=== PATIENT | male | born 1970 | race African-American/Black ===

== ENCOUNTER 2017-03-06 15:39 | Inpatient (IN) | payer OTHER ==
[2017-03-06 17:39] VITALS: BMI 27.3
--- NOTE | 2017-03-06 20:09 | HP ---
CIWA Score - CIWA Score Nausea/Vomitin-Mild Nausea/No Vomiting Muscle Tremors: 4-Moderate,w/Arms Extend Anxiety: 4-Mod. Anxious/Guarded Agitation: 4-Moderately Restless Paroxysmal Sweats: 2 Orientation: 0-Oriented Tacttile Disturbances: 0-None Auditory Disturbances: 0-None Visual Disturbances: 0-None Headache: 0-None Present CIWA-Ar Total Score: 15 Admission ROS BHS - HPI Chief Complaint: WITHDRAWAL SYMPTOMS Allergies/Adverse Reactions: Allergies Allergy/AdvReac Type Severity Reaction Status Date / Time colchicine Allergy Intermediate Rash Verified 03/06/17 18:30 Fish Containing Products Allergy Intermediate Hives Verified 03/06/17 18:30 History of Present Illness: 46 Y.O. MAN WITH AN EXTENSIVE HISTORY OF DRUG DEPENDENCE IS SEEKING DETOX. HE WAS PREVIOUSLY HERE IN 12/2014 FOR REHAB. HE REPORTS HIS LONGEST PERIOD OF SOBRIETY HAS BEEN 3 YEARS. Exam Limitations: No Limitations - Ebola screening Have you traveled outside of the country in the last 21 days: No Have you been sick,other than usual withdrawal symptoms: No - Review of Systems Constitutional: Malaise EENT: reports: Blurred Vision (WEARS READING GLASSESS) Respiratory: reports: No Symptoms reported Cardiac: reports: No Symptoms Reported GI: reports: Nausea : reports: No Symptoms Reported Musculoskeletal: reports: Muscle Pain Integumentary: reports: No Symptoms Reported Neuro: reports: Tremors Endocrine: reports: No Symptoms Reported Hematology: reports: No Symptoms Reported Psychiatric: reports: Orientated x3, other (BIPOLAR) Other Systems: Reviewed and Negative Patient History - Patient Medical History Hx Anemia: No Hx Asthma: No Hx Chronic Obstructive Pulmonary Disease (COPD): No Hx Cancer: No Hx Cardiac Disorders: No Hx Congestive Heart Failure: No Hx Hypertension: No Hx Hypercholesterolemia: Yes (ON ZOCOR) Hx Pacemaker: No HX Cerebrovascular Accident: No Hx Seizures: No Hx Dementia: No Hx Diabetes: No Hx Gastrointestinal Disorders: No Hx Liver Disease: No Hx Genitourinary Disorders: No Hx Sexually Transmitted Disorders: No Hx Renal Disease (ESRD): No Hx Thyroid Disease: No Hx Human Immunodeficiency Virus (HIV): No (NEGATIVE HX) Hx Hepatitis C: No (NEGATIVE) Hx Depression: Yes Hx Suicide Attempt: Yes (OVERDOSE ON NORVASC AND XANAX 12/2014. DENIES CURRENT IDEATIONS.) Hx Bipolar Disorder: Yes (ANXIETY DISORDER) Hx Schizophrenia: No - Patient Surgical History Past Surgical History: Yes Hx Neurologic Surgery: No Hx Cataract Extraction: No Hx Cardiac Surgery: Yes (TUMOR REMOVAL 2009--[facility]) Hx Lung Surgery: No Hx Breast Surgery: No Hx Breast Biopsy: No Hx Abdominal Surgery: No Hx Appendectomy: No Hx Cholecystectomy: No Hx Genitourinary Surgery: No Hx Section: No Hx Orthopedic Surgery: No Anesthesia Reaction: No - PPD History Previous Implant?: Yes Implanted On Prior [facility] Admission?: Yes Date: 12/20/14 Results: 0 MM PPD to be Administered?: Yes - Reproductive History Patient is a Female of Child Bearing Age (11 -55 yrs old): No - Smoking Cessation Smoking history: Current some day smoker Have you smoked in the past 12 months: Yes Aproximately how many cigarettes per day: 10 Hx Chewing Tobacco Use: No Initiated information on smoking cessation: Yes 'Breaking Loose' booklet given: 03/06/17 - Substance & Tx. History Hx Alcohol Use: Yes Hx Substance Use: Yes Substance Use Type: Alcohol, Cocaine Hx Substance Use Treatment: Yes (DETOX AND REHAB ) - Substances Abused Alcohol Route: Oral Frequency: Daily Amount used: ELIEZER 3 PINTS , BEER 12 OF 16 OZ Age of first use: 14 Date of Last Use: 03/06/17 Marijuana/Hashish Route: Smoking Frequency: Daily Amount used: 2 GRAMS Age of first use: 14 Date of Last Use: 03/06/17 Cocaine Route: Inhalation Frequency: Daily Amount used: 1 GRAM Age of first use: 19 Date of Last Use: 03/06/17 Family Disease History - Family Disease History Family Disease History: Diabetes: Father (HTN-ALIVE), Mother (HTN-ALIVE), Other : Father, Mother Admission Physical Exam BHS - Vital Signs Vital Signs: Vital Signs - 24 hr 03/06/17 17:37 Temperature 97.7 F Pulse Rate 92 H Respiratory 18 Rate Blood Pressure 136/94 - Physical General Appearance: Yes: Disheveled, Tremorous, Anxious HEENTM: Yes: Hearing grossly Normal, Normal ENT Inspection, Normocephalic Respiratory: Yes: Chest Non-Tender, Lungs Clear, Normal Breath Sounds, No Respiratory Distress, No Accessory Muscle Use Neck: Yes: No masses,lesions,Nodules Breast: Yes: Breast Exam Deferred Cardiology: Yes: Regular Rhythm, Regular Rate, S1, S2 Abdominal: Yes: Non Tender, Flat Genitourinary: Yes: Other (NO COMPLAINTS REPORTED) Back: Yes: Within Normal Limits Musculoskeletal: Yes: Gait Steady, Muscle Pain (B/L LE) Extremities: Yes: Within Normal Limits Neurological: Yes: Fully Oriented, Alert, Normal Response Integumentary: Yes: Normal Color, Dry, Warm Lymphatic: Yes: Within Normal Limits - Diagnostic (1) Cannabis dependence Current Visit: Yes Status: Chronic (2) Cocaine dependence Current Visit: Yes Status: Chronic (3) Essential (primary) hypertension Current Visit: Yes Status: Chronic (4) Alcohol dependence with uncomplicated withdrawal Current Visit: Yes Status: Chronic (5) Nicotine dependence Current Visit: Yes Status: Chronic (6) Gout Current Visit: Yes Status: Chronic Cleared for Admission [facility] - Detox or Rehab [facility] Level of Care: Medically Managed Detox Regimen/Protocol: Librium [facility] Breath Alcohol Content Breath Alcohol Content: 0 Urine Drug Screen - Results Drug Screen Negative: No Urine Drug Screen Results: THC-Marijuana, RENUKA-Cocaine, MET-Methamphetamine
[2017-03-06] MEDS ORDERED: ACETAMINOPHEN 325 MG TABLET (FP) PO PRN (20:16)
[2017-03-06] MEDS ORDERED: chlordiazePOXIDE HCL 25 MG CAPSULE PO ONE (20:16)
[2017-03-06] MEDS ORDERED: NICOTINE POLACRILEX 2 MG GUM BUC PRN (20:16)
[2017-03-06] MEDS ORDERED: P-EPHED 60MG/TRIPROLIDI 2.5MG TABLET PO PRN (20:16)
[2017-03-06] MEDS ORDERED: MAG HYDROX/AL HYDROX/SIMETH 30 ML UNIT-DOSE CUP PO PRN (20:16)
[2017-03-06] MEDS ORDERED: hydrOXYzine PAMOATE 50 MG CAPSULE (FP) PO PRN (20:16)
[2017-03-06] MEDS ORDERED: IBUPROFEN 400 MG TABLET (FP) PO PRN (20:16)
[2017-03-06] MEDS ORDERED: MAGNESIUM CITRATE 300 ML BOTTLE PO PRN (20:16)
[2017-03-06] MEDS ORDERED: MENTHOL/PHENOL 1 EACH UD MM PRN (20:16)
[2017-03-06] MEDS ORDERED: MAGNESIUM HYDROX 2400MG/30ML ORAL SUSPENSION 30 ML CUP PO PRN (20:16)
[2017-03-06] MEDS ORDERED: guaiFENesin/D-METHORPHAN HB 10 ML UNIT-DOSE CUPS PO PRN (20:16)
[2017-03-06] MEDS ORDERED: LOPERAMIDE HCL 2 MG CAPSULE PO PRN (20:16)
[2017-03-06] MEDS ORDERED: chlordiazePOXIDE HCL 25 MG CAPSULE PO PRN (20:16)
[2017-03-06] MEDS ORDERED: diphenhydrAMINE HCL 50 MG CAPSULE PO PRN (20:16)
[2017-03-06] MEDS: THIAMINE HCL 100 MG TABLET (FP) PO SCH (22:26)
[2017-03-06] MEDS: RANITIDINE HCL 150 MG TABLET (FP) PO SCH (22:26)
[2017-03-06] MEDS: chlordiazePOXIDE HCL 25 MG CAPSULE PO SCH (22:27)
[2017-03-06 23:12] LABS: URINE APPEARANCE CLEAR; URINE BILIRUBIN NEGATIVE (NEGATIVE); URINE BLOOD NEGATIVE (NEGATIVE); URINE COLOR YELLOW; URINE GLUCOSE (UA) NEGATIVE (NEGATIVE); URINE KETONE NEGATIVE (NEGATIVE); URINE LEUK ESTERASE NEGATIVE (NEGATIVE); URINE NITRITE NEGATIVE (NEGATIVE); URINE PROTEIN NEGATIVE (NEGATIVE); URINE UROBILINOGEN NEGATIVE E.U./dl (0.2-1.0)
[2017-03-07] MEDS: chlordiazePOXIDE HCL 25 MG CAPSULE PO SCH ×4 (05:55→23:34)
[2017-03-07 09:54] LABS: MCH 30.6 pg (25.7-33.7); MCHC 32.6 g/dl (32.0-35.9); MEAN CELL VOLUME 93.9 fl (80-96); MEAN PLT VOLUME 7.7 fl (7.5-11.1); PLATELET COUNT 272 K/MM3 (134-434); RDW 15.3 % (11.9-15.9); WHITE BLOOD COUNT 4.7 K/mm3 (4.0-10.0)
[2017-03-07 10:21] LABS: ALBUMIN 3.5 g/dl (3.4-5.0); ALK PHOS 69 U/L (45-117); ANION GAP 11 (8-16); BILIRUBIN,TOTAL 0.4 mg/dL (0.2-1.0); CALCIUM 8.6 mg/dL (8.5-10.1); CO2 29 mmol/L (21-32); CREATININE 1.1 mg/dL (0.7-1.3); GLUCOSE,RANDOM 74 mg/dL (74-106); SGOT/AST 30 U/L (15-37); SGPT/ALT 44 U/L (12-78); TOT PROT 6.6 g/dl (6.4-8.2)
--- NOTE | 2017-03-07 10:40 | PN ---
S CIWA - CIWA Score Nausea/Vomitin-No Nausea/No Vomiting Muscle Tremors: 4-Moderate,w/Arms Extend Anxiety: 3 Agitation: 3 Paroxysmal Sweats: 3 Orientation: 0-Oriented Tacttile Disturbances: 0-None Auditory Disturbances: 0-None Visual Disturbances: 0-None Headache: 0-None Present CIWA-Ar Total Score: 13 BHS Progress Note (SOAP) Subjective: fatigue sweats mild shakes interrupted sleep Objective: 03/07/17 10:39 Vital Signs Temperature 97.5 F L 03/07/17 10:37 Pulse Rate 90 03/07/17 10:37 Respiratory Rate 16 03/07/17 10:37 Blood Pressure 125/83 03/07/17 10:37 O2 Sat by Pulse Oximetry (%) Laboratory Tests 03/06/17 03/07/17 03/07/17 23:00 07:00 07:00 WBC 4.7 RBC 4.72 Hgb 14.5 Hct 44.3 MCV 93.9 MCHC 32.6 RDW 15.3 Plt Count 272 MPV 7.7 Sodium 142 Potassium 4.3 Chloride 102 Carbon Dioxide 29 Anion Gap 11 BUN 17 D Creatinine 1.1 Creat Clearance w eGFR > 60 Random Glucose 74 D Calcium 8.6 Total Bilirubin 0.4 D AST 30 ALT 44 D Alkaline Phosphatase 69 Total Protein 6.6 Albumin 3.5 Urine Color Yellow Urine Appearance Clear Urine pH 6.0 Ur Specific [place] 1.026 Urine Protein Negative Urine Glucose (UA) Negative Urine Ketones Negative Urine Blood Negative Urine Nitrite Negative Urine Bilirubin Negative Urine Urobilinogen Negative Ur Leukocyte Esterase Negative awake/alert ambulating no acute distress Assessment: 03/07/17 10:40 withdrawal sx Plan: continue detox increase fluids
[2017-03-07 10:45] LABS: HIV 1 & 2 AB NEGATIVE; HIV 1 AGp24 NEGATIVE
[2017-03-07] MEDS: amLODIPine BESYLATE 5 MG TABLET (FP) PO SCH (11:03)
[2017-03-07] MEDS: ASPIRIN 81 MG CHEWABLE TABLETS PO SCH (11:03)
[2017-03-07] MEDS: PRENATAL VITAMINS W/ FOLIC ACID TABLET (FP) PO SCH (11:03)
[2017-03-07] MEDS: RANITIDINE HCL 150 MG TABLET (FP) PO SCH ×2 (11:03→23:35)
[2017-03-07] MEDS: NICOTINE 14 MG/24 HOURS TOPICAL PATCH TD SCH (11:04)
--- NOTE | 2017-03-07 14:58 | CONSULT ---
[facility] Psychiatric Consult - Data Date of interview: 03/07/17 Admission source: [facility] Identifying data: Readmission to [facility] for this 46 y/o AA male seeking detox treatment for alcohol,cocaine and nicotine dependence.Patient is single without children,domiciled,unemployed and deprived of any means of income. Substance Abuse History: - Smoking Cessation. Smoking history: Current some day smoker. Have you smoked in the past 12 months: Yes. Aproximately how many cigarettes per day: 10. Hx Chewing Tobacco Use: No. Initiated information on smoking cessation: Yes. 'Breaking Loose' booklet given: 03/06/17. - Substance & Tx. History. Hx Alcohol Use: Yes. Hx Substance Use: Yes. Substance Use Type : Alcohol, Cocaine. Hx Substance Use Treatment: Yes (DETOX AND REHAB ). - Substances Abused. Alcohol. Route: Oral. Frequency: Daily. Amount used: ELIEZER 3 PINTS , BEER 12 OF 16 OZ. Age of first use: 14. Date of Last Use: 04/17. Marijuana/Hashish. Route: Smoking. Frequency: Daily. Amount used: 2 GRAMS. Age of first use: 14. Date of Last Use: 03/06/17. Cocaine. Route : Inhalation. Frequency: Daily. Amount used: 1 GRAM. Age of first use: 19. Date of Last Use: 03/06/17. Confirmed. Medical History: History of pancreatitis and open heart surgery (2010). Psychiatric History: Psychiatric hospitalization in 2015 at [facility].Diagnosed with Bipolar Disorder.Prescribed depakote 500 mg po bid + remeron 7.5 mg/hs.Patient is not under the care of an OPD psychiatrist.Mr Kaminski relies on his primary care physician for scripts.He admits to one suicide attempt (cutting) in 2014. Physical/Sexual Abuse/Trauma History: Patient denies. Additional Comment: Urine Drug Screen Results: THC-Marijuana, RENUKA-Cocaine, MET- Methamphetamine.Noted. Mental Status Exam - Mental Status Exam Alert and Oriented to: Time, Place, Person Cognitive Function: Good Patient Appearance: Well Groomed Mood: Withdrawn, Anxious, Apprehensive Affect: Mood Congruent Patient Behavior: Fatigued, Appropriate, Cooperative Speech Pattern: Clear, Appropriate Voice Loudness: Normal Thought Process: Goal Oriented Thought Disorder: Not Present Hallucinations: Denies Suicidal Ideation: Denies Homicidal Ideation: Denies Insight/Judgement: Poor Sleep: Fair Appetite: Good Muscle strength/Tone: Normal Gait/Station: Normal Psychiatric Findings - Problem List ([place] 1, 2,3) (1) Alcohol dependence with uncomplicated withdrawal Current Visit: Yes Status: Acute (2) Cannabis dependence Current Visit: Yes Status: Acute (3) Cocaine dependence Current Visit: Yes Status: Acute (4) Nicotine dependence Current Visit: Yes Status: Acute (5) Bipolar disorder Current Visit: Yes Status: Chronic (6) Essential (primary) hypertension Current Visit: Yes Status: Chronic (7) Gout Current Visit: Yes Status: Chronic (8) GERD (gastroesophageal reflux disease) Current Visit: Yes Status: Chronic (9) Hypercholesterolemia Current Visit: Yes Status: Chronic - Initial Treatment Plan Initial Treatment Plan: Psychoeducation.Detoxification.Medications : depakote 500 mg po bid + remeron 7.5 mg po hs.Side effects/benefits discussed with patient.He agrees with this careplan.Observation.Valproic acid level requested.Will follow.
[2017-03-07] MEDS: ATORVASTATIN CA 20 MG TABLET (FP) PO SCH ×2 (16:23→23:35)
--- NOTE | 2017-03-07 16:26 | EKG ---
Test Reason : Blood Pressure : / mmHG Vent. Rate : 082 BPM Atrial Rate : 082 BPM P-R Int : 156 ms QRS Dur : 102 ms QT Int : 384 ms P-R-T Axes : 064 055 047 degrees QTc Int : 448 ms POOR DATA QUALITY, INTERPRETATION MAY BE ADVERSELY AFFECTED NORMAL SINUS RHYTHM MINIMAL VOLTAGE CRITERIA FOR LVH, MAY BE NORMAL VARIANT BORDERLINE ECG WHEN COMPARED WITH ECG OF 24-SEP-2010 17:06, NO SIGNIFICANT CHANGE WAS FOUND Confirmed by JADA BILLY MD ([id number]) on 03/07/2017 4:26:39 PM Referred By: Zeeshan Gonzales Confirmed By:JADA BILLY MD
[2017-03-07] MEDS: DIVALPROEX SODIUM 500 MG TABLET E.C. PO SCH (23:33)
[2017-03-07] MEDS: THIAMINE HCL 100 MG TABLET (FP) PO SCH (23:35)
[2017-03-07] MEDS: MIRTAZAPINE 15 MG TABLET (FP) PO SCH (23:35)
[2017-03-08] MEDS: chlordiazePOXIDE HCL 25 MG CAPSULE PO SCH ×3 (05:56→17:16)
[2017-03-08] MEDS: ASPIRIN 81 MG CHEWABLE TABLETS PO SCH (10:23)
[2017-03-08] MEDS: DIVALPROEX SODIUM 500 MG TABLET E.C. PO SCH ×2 (10:23→23:32)
[2017-03-08] MEDS: RANITIDINE HCL 150 MG TABLET (FP) PO SCH ×2 (10:23→23:33)
[2017-03-08] MEDS: amLODIPine BESYLATE 5 MG TABLET (FP) PO SCH (10:23)
[2017-03-08] MEDS: PRENATAL VITAMINS W/ FOLIC ACID TABLET (FP) PO SCH (10:23)
[2017-03-08] MEDS: NICOTINE 14 MG/24 HOURS TOPICAL PATCH TD SCH (10:24)
--- NOTE | 2017-03-08 11:11 | PN ---
S CIWA - CIWA Score Nausea/Vomitin-No Nausea/No Vomiting Muscle Tremors: 3 Anxiety: 3 Agitation: 3 Paroxysmal Sweats: 3 Orientation: 0-Oriented Tacttile Disturbances: 0-None Auditory Disturbances: 0-None Visual Disturbances: 0-None Headache: 0-None Present CIWA-Ar Total Score: 12 BHS Progress Note (SOAP) Subjective: irritable agitation anxiety little sweats little shakes Objective: 03/08/17 11:10 Vital Signs Temperature 98.4 F 03/08/17 10:13 Pulse Rate 91 H 03/08/17 10:13 Respiratory Rate 18 03/08/17 10:13 Blood Pressure 127/97 03/08/17 10:13 O2 Sat by Pulse Oximetry (%) Laboratory Tests 03/06/17 03/07/17 03/07/17 23:00 07:00 07:00 WBC 4.7 RBC 4.72 Hgb 14.5 Hct 44.3 MCV 93.9 MCHC 32.6 RDW 15.3 Plt Count 272 MPV 7.7 Sodium Potassium Chloride Carbon Dioxide Anion Gap BUN Creatinine Creat Clearance w eGFR Random Glucose Calcium Total Bilirubin AST ALT Alkaline Phosphatase Total Protein Albumin Urine Color Yellow Urine Appearance Clear Urine pH 6.0 Ur Specific [place] 1.026 Urine Protein Negative Urine Glucose (UA) Negative Urine Ketones Negative Urine Blood Negative Urine Nitrite Negative Urine Bilirubin Negative Urine Urobilinogen Negative Ur Leukocyte Esterase Negative Valproic Acid RPR Titer HIV 1&2 Antibody Screen Negative HIV P24 Antigen Negative 03/07/17 03/07/17 03/08/17 07:00 07:00 07:00 WBC RBC Hgb Hct MCV MCHC RDW Plt Count MPV Sodium 142 Potassium 4.3 Chloride 102 Carbon Dioxide 29 Anion Gap 11 BUN 17 D Creatinine 1.1 Creat Clearance w eGFR > 60 Random Glucose 74 D Calcium 8.6 Total Bilirubin 0.4 D AST 30 ALT 44 D Alkaline Phosphatase 69 Total Protein 6.6 Albumin 3.5 Urine Color Urine Appearance Urine pH Ur Specific [place] Urine Protein Urine Glucose (UA) Urine Ketones Urine Blood Urine Nitrite Urine Bilirubin Urine Urobilinogen Ur Leukocyte Esterase Valproic Acid 12.006 L RPR Titer Nonreactive HIV 1&2 Antibody Screen HIV P24 Antigen awake/alert ambulating no acute distress Assessment: 03/08/17 11:11 withdrawal sx Plan: continue detox increase fluids
[2017-03-08] MEDS: chlordiazePOXIDE 5 MG CAPSULE PO SCH (23:32)
[2017-03-08] MEDS: ATORVASTATIN CA 20 MG TABLET (FP) PO SCH (23:33)
[2017-03-08] MEDS: THIAMINE HCL 100 MG TABLET (FP) PO SCH (23:33)
[2017-03-08] MEDS: MIRTAZAPINE 15 MG TABLET (FP) PO SCH (23:33)
[2017-03-09] MEDS: chlordiazePOXIDE 5 MG CAPSULE PO SCH ×3 (05:33→17:06)
[2017-03-09] MEDS: ASPIRIN 81 MG CHEWABLE TABLETS PO SCH (11:18)
[2017-03-09] MEDS: DIVALPROEX SODIUM 500 MG TABLET E.C. PO SCH (11:18)
[2017-03-09] MEDS: NICOTINE 14 MG/24 HOURS TOPICAL PATCH TD SCH (11:18)
[2017-03-09] MEDS: RANITIDINE HCL 150 MG TABLET (FP) PO SCH (11:19)
[2017-03-09] MEDS: amLODIPine BESYLATE 5 MG TABLET (FP) PO SCH (11:19)
[2017-03-09] MEDS: PRENATAL VITAMINS W/ FOLIC ACID TABLET (FP) PO SCH (11:19)
--- NOTE | 2017-03-09 17:13 | PN ---
S Progress Note (SOAP) Subjective: Anxious, Body Aches, H/A. Objective: PT. A & O X 3, OBSERVED AMBULATING ON UNIT. 03/09/17 17:11 Vital Signs Temperature 96.7 F L 03/09/17 14:20 Pulse Rate 87 03/09/17 14:20 Respiratory Rate 19 03/09/17 14:20 Blood Pressure 128/80 03/09/17 14:20 O2 Sat by Pulse Oximetry (%) Laboratory Last Values WBC 4.7 K/mm3 (4.0-10.0) 03/07/17 07:00 RBC 4.72 M/mm3 (4.00-5.60) 03/07/17 07:00 Hgb 14.5 GM/dL (11.7-16.9) 03/07/17 07:00 Hct 44.3 % (35.4-49) 03/07/17 07:00 MCV 93.9 fl (80-96) 03/07/17 07:00 MCHC 32.6 g/dl (32.0-35.9) 03/07/17 07:00 RDW 15.3 % (11.9-15.9) 03/07/17 07:00 Plt Count 272 K/MM3 (134-434) 03/07/17 07:00 MPV 7.7 fl (7.5-11.1) 03/07/17 07:00 Sodium 142 mmol/L (136-145) 03/07/17 07:00 Potassium 4.3 mmol/L (3.5-5.1) 03/07/17 07:00 Chloride 102 mmol/L (98-107) 03/07/17 07:00 Carbon Dioxide 29 mmol/L (21-32) 03/07/17 07:00 Anion Gap 11 (8-16) 03/07/17 07:00 BUN 17 mg/dL (7-18) D 03/07/17 07:00 Creatinine 1.1 mg/dL (0.7-1.3) 03/07/17 07:00 Creat Clearance w eGFR > 60 (>60) 03/07/17 07:00 Random Glucose 74 mg/dL (74-106) D 03/07/17 07:00 Calcium 8.6 mg/dL (8.5-10.1) 03/07/17 07:00 Total Bilirubin 0.4 mg/dL (0.2-1.0) D 03/07/17 07:00 AST 30 U/L (15-37) 03/07/17 07:00 ALT 44 U/L (12-78) D 03/07/17 07:00 Alkaline Phosphatase 69 U/L (45-117) 03/07/17 07:00 Total Protein 6.6 g/dl (6.4-8.2) 03/07/17 07:00 Albumin 3.5 g/dl (3.4-5.0) 03/07/17 07:00 Urine Color Yellow 03/06/17 23:00 Urine Appearance Clear 03/06/17 23:00 Urine pH 6.0 (5.0-8.0) 03/06/17 23:00 Ur Specific [place] 1.026 (1.001-1.035) 03/06/17 23:00 Urine Protein Negative (NEGATIVE) 03/06/17 23:00 Urine Glucose (UA) Negative (NEGATIVE) 03/06/17 23:00 Urine Ketones Negative (NEGATIVE) 03/06/17 23:00 Urine Blood Negative (NEGATIVE) 03/06/17 23:00 Urine Nitrite Negative (NEGATIVE) 03/06/17 23:00 Urine Bilirubin Negative (NEGATIVE) 03/06/17 23:00 Urine Urobilinogen Negative E.U./dl (0.2-1.0) 03/06/17 23:00 Ur Leukocyte Esterase Negative (NEGATIVE) 03/06/17 23:00 Valproic Acid 12.006 ug/ml (50-100) L 03/08/17 07:00 RPR Titer Nonreactive (NONREACTIVE) 03/07/17 07:00 HIV 1&2 Antibody Screen Negative 03/07/17 07:00 HIV P24 Antigen Negative 03/07/17 07:00 LABS NOTED. Assessment: 03/09/17 17:12 WITHDRAWAL SYMPTOMS. Plan: CONTINUE DETOX. ADVISED PATIENT TO FOLLOW-UP WITH CHIEF OF SERVICE / REHAB MEDICAL PROVIDER AFTER DISCHARGE FROM DETOX FOR GENERAL MEDICAL ASSESSMENT AND FOR ABNORMAL ADMISSION LAB VALUES.
[2017-03-09 18:00] VITALS: BP 139/99; PULSE 86; TEMP 97.5
[2017-03-09] MEDS ORDERED: chlordiazePOXIDE HCL 10 MG CAPSULE PO SCH (23:00)
--- NOTE | 2017-05-02 11:00 | DS ---
[facility] Detox Discharge Summary Admission Date: 03/06/17 Discharge Date: 03/09/17 - History Present History: Alcohol Dependence, Cannabis Dependence - Physical Exam Results Vital Signs: Vital Signs Temperature 97.5 F L 03/09/17 17:58 Pulse Rate 86 03/09/17 17:58 Respiratory Rate 18 03/09/17 17:58 Blood Pressure 139/99 03/09/17 17:58 O2 Sat by Pulse Oximetry (%) - Treatment Hospital Course: Detox Protocol Followed, Rehab Referral Accepted - Medication Discharge Medications: Ambulatory Orders Mirtazapine [Remeron -] 7.5 mg PO HS 12/27/14 Amlodipine Besylate [Norvasc -] 5 mg PO DAILY #30 tablet 01/10/15 Indomethacin [Indocin -] 25 mg PO TIDCM #90 capsule 01/10/15 Simvastatin [Zocor -] 20 mg PO HS #30 01/10/15 Thiamine HCl [Vitamin B1 -] 100 mg PO HS #30 tablet 01/10/15 Aspirin [ASA -] 81 mg PO DAILY 03/06/17 Divalproex [Depakote -] 500 mg PO BID 03/06/17 Ranitidine HCl [Zantac] 150 mg PO BID 03/06/17 Divalproex [Depakote -] 500 mg PO BID #60 tablet.ec 03/07/17 Mirtazapine [Remeron -] 7.5 mg PO HS #14 tablet 03/07/17 - Diagnosis (1) Alcohol dependence with uncomplicated withdrawal Status: Chronic (2) Cannabis dependence Status: Chronic (3) Cocaine dependence Status: Chronic Qualifiers: Substance use status: uncomplicated Qualified Code(s): F14.20 - Cocaine dependence, uncomplicated (4) Nicotine dependence Status: Chronic Qualifiers: Nicotine product type: cigarettes (5) Essential (primary) hypertension Status: Chronic (6) GERD (gastroesophageal reflux disease) Status: Chronic (7) Gout Status: Chronic Qualifiers: Chronicity: unspecified - AMA Did Patient Leave Against Medical Advice: No
== END 2017-03-09 18:34 | disposition left against medical advice (07) | DRG 770 ==
LOC: YASAS 15:39 → Y6N 19:53
PROVIDERS: ADMIT Internal Medicine Addiction Medicine; ATTEND Internal Medicine Addiction Medicine
PROC: HZ2ZZZZ Detoxification Services for Substance Abuse Treatment (ICD-10-PCS; principal; 2017-03-09)
DX: F10.230 Alcohol dependence with withdrawal, uncomplicated (principal); F14.20 Cocaine dependence, uncomplicated; F12.20 Cannabis dependence, uncomplicated; F17.210 Nicotine dependence, cigarettes, uncomplicated; F31.9 Bipolar disorder, unspecified; I10 Essential (primary) hypertension; K21.9 Gastro-esophageal reflux disease without esophagitis; E78.00 Pure hypercholesterolemia, unspecified; M10.9 Gout, unspecified
CPT/HCPCS: 36415; 80053; 80164; 81003; 85027; 86593; 87389; 93005; 93010

== ENCOUNTER 2017-07-21 15:33 | Inpatient (IN) | payer OTHER ==
[2017-07-21 15:47] VITALS: BMI 27.8
--- NOTE | 2017-07-21 16:37 | HP ---
CIWA Score - CIWA Score Nausea/Vomitin Muscle Tremors: 3 Anxiety: 3 Agitation: 3 Paroxysmal Sweats: 2 Orientation: 0-Oriented Tacttile Disturbances: 2-Mild Itch/Numbness/Burn Auditory Disturbances: 2-Mild Harshness/Frighten Visual Disturbances: 2-Mild Sensitivity Headache: 2-Mild CIWA-Ar Total Score: 22 Admission ROS BHS - HPI Chief Complaint: i mm here to stop drinking alcohol and xanax Allergies/Adverse Reactions: Allergies Allergy/AdvReac Type Severity Reaction Status Date / Time colchicine Allergy Intermediate Rash Verified 07/21/17 15:53 Fish Containing Products Allergy Intermediate Hives Verified 07/21/17 15:53 History of Present Illness: this 46 yeas old male with alcohol and xanax dependence,seeking detox,last treatment [facility] 03/06/17 to 03/09/17 at [facility] seizure last 2014 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 longest period of sobriety for 3 years Exam Limitations: No Limitations - Ebola screening Have you traveled outside of the country in the last 21 days: No Have you had contact with anyone from an Ebola affected area: No Have you been sick,other than usual withdrawal symptoms: No Do you have a fever: No - Review of Systems Constitutional: Loss of Appetite, Malaise, Night Sweats, Changes in sleep, Weakness EENT: reports: Nose Congestion, Other (s/p removal of thymoma) Respiratory: reports: No Symptoms reported Cardiac: reports: No Symptoms Reported GI: reports: Nausea, Vomiting, Abdominal cramping : reports: No Symptoms Reported Musculoskeletal: reports: Back Pain, Muscle Pain Integumentary: reports: Dryness Neuro: reports: Headache, Tremors Endocrine: reports: Other (s/p thymoma in 10/05/11) Hematology: reports: No Symptoms Reported Psychiatric: reports: Depressed Patient History - Patient Medical History Hx Anemia: No Hx Asthma: No Hx Chronic Obstructive Pulmonary Disease (COPD): No Hx Cancer: No Hx Cardiac Disorders: No Hx Congestive Heart Failure: No Hx Hypertension: Yes Hx Hypercholesterolemia: Yes (ON ZOCOR) Hx Pacemaker: No HX Cerebrovascular Accident: No Hx Seizures: Yes (2012) Hx Dementia: No Hx Diabetes: No Hx Gastrointestinal Disorders: No Hx Liver Disease: No Hx Genitourinary Disorders: No Hx Sexually Transmitted Disorders: No Hx Renal Disease (ESRD): No Hx Thyroid Disease: No Hx Human Immunodeficiency Virus (HIV): No (NEGATIVE HX last 04/17 negative) Hx Hepatitis C: No (NEGATIVE) Hx Depression: Yes (no medication) Hx Suicide Attempt: No Hx Bipolar Disorder: Yes (ANXIETY DISORDER) Hx Schizophrenia: No Other Medical History: no suicidal,no homicidal - Patient Surgical History Past Surgical History: Yes Hx Neurologic Surgery: No Hx Cataract Extraction: No Hx Cardiac Surgery: Yes (TUMOR REMOVAL 2009--[facility]) Hx Lung Surgery: No Hx Breast Surgery: No Hx Breast Biopsy: No Hx Abdominal Surgery: No Hx Appendectomy: No Hx Cholecystectomy: No Hx Genitourinary Surgery: No Hx Section: No Hx Orthopedic Surgery: Yes (fx of left ankle in 1984) Anesthesia Reaction: No - PPD History Previous Implant?: Yes Documented Results: Negative w/proof Implanted On Prior [facility] Admission?: Yes Date: 03/08/17 Results: 0 MM PPD to be Administered?: No - Smoking Cessation Smoking history: Former smoker Have you smoked in the past 12 months: No Aproximately how many cigarettes per day: 10 If you are a former smoker, when did you quit?: 2010 Hx Chewing Tobacco Use: No Initiated information on smoking cessation: No 'Breaking Loose' booklet given: 07/21/17 - Substance & Tx. History Hx Alcohol Use: Yes Hx Substance Use: Yes Substance Use Type: Alcohol, Cocaine, Marijuana, Tranquilizers - Substances Abused Alcohol Route: Oral Frequency: Daily Amount used: claudia(3 pints)/beer-15-12 oz cans Age of first use: 14 Date of Last Use: 07/21/17 Alprazolam (Xanax) Route: Oral Frequency: Daily Amount used: 5 (2mg stiks) Age of first use: 46 Date of Last Use: 07/20/17 Cocaine Route: Inhalation Frequency: 1-3 times last 30 days Amount used: $30 Age of first use: 27 Date of Last Use: 07/20/17 Marijuana/Hashish Route: Smoking Frequency: Daily Amount used: $30 Age of first use: 14 Date of Last Use: 07/20/17 Family Disease History - Family Disease History Family Disease History: Diabetes: Father (HTN-ALIVE), Mother (HTN-ALIVE), Other : Father, Mother Admission Physical Exam BHS - Vital Signs Vital Signs: Vital Signs - 24 hr 07/21/17 15:45 Temperature 98.3 F Pulse Rate 80 Respiratory 20 Rate Blood Pressure 149/113 - Physical General Appearance: Yes: Moderate Distress, Tremorous, Irritable, Sweating, Anxious HEENTM: Yes: Normal ENT Inspection, Normocephalic, JUAN, Pharynx Normal Respiratory: Yes: Lungs Clear, Normal Breath Sounds, No Respiratory Distress, Surgical Scar (in midchest s/p removal of thymoma) Neck: Yes: Within Normal Limits, Supple, Trachea in good position Breast: Yes: Within Normal Limits Cardiology: Yes: Within Normal Limits, Regular Rhythm, Regular Rate, S1, S2 Abdominal: Yes: Within Normal Limits, Normal Bowel Sounds, Non Tender, Flat, Soft Genitourinary: Yes: Within Normal Limits Back: Yes: Muscle Spasm Musculoskeletal: Yes: Back pain, Muscle Pain Extremities: Yes: Normal Range of Motion, Tremors Neurological: Yes: staff development coordinator II-XII NML intact, Fully Oriented, Alert, Motor Strength 5/5 Integumentary: Yes: Dry Lymphatic: Yes: Within Normal Limits - Diagnostic (1) Alcohol dependence with uncomplicated withdrawal Current Visit: No Status: Chronic (2) Uncomplicated sedative, hypnotic or anxiolytic withdrawal Current Visit: Yes Status: Acute (3) Alcohol related seizure Current Visit: Yes Status: Acute (4) Syncope Current Visit: Yes Status: Acute (5) Cannabis dependence Current Visit: No Status: Chronic (6) Cocaine dependence Current Visit: No Status: Chronic Qualifiers: Substance use status: uncomplicated Qualified Code(s): F14.20 - Cocaine dependence, uncomplicated (7) Essential (primary) hypertension Current Visit: No Status: Chronic (8) GERD (gastroesophageal reflux disease) Current Visit: No Status: Chronic (9) Gout Current Visit: No Status: Chronic Qualifiers: Chronicity: unspecified (10) Hypercholesterolemia Current Visit: No Status: Chronic (11) Depression Current Visit: Yes Status: Acute Cleared for Admission [facility] - Detox or Rehab [facility] Level of Care: Medically Managed Detox Regimen/Protocol: Valium [facility] Breath Alcohol Content Breath Alcohol Content: 0 Urine Drug Screen - Results Drug Screen Negative: No Urine Drug Screen Results: THC-Marijuana, RENUKA-Cocaine, BZO-Benzodiazepines
[2017-07-21] MEDS ORDERED: P-EPHED 60MG/TRIPROLIDI 2.5MG TABLET PO PRN (17:03)
[2017-07-21] MEDS ORDERED: diazePAM 5 MG TABLET PO ONE (17:03)
[2017-07-21] MEDS ORDERED: hydrOXYzine PAMOATE 50 MG CAPSULE (FP) PO PRN (17:03)
[2017-07-21] MEDS ORDERED: MAGNESIUM CITRATE 300 ML BOTTLE PO PRN (17:03)
[2017-07-21] MEDS ORDERED: MAG HYDROX/AL HYDROX/SIMETH 30 ML UNIT-DOSE CUP PO PRN (17:03)
[2017-07-21] MEDS ORDERED: ACETAMINOPHEN 325 MG TABLET (FP) PO PRN (17:03)
[2017-07-21] MEDS ORDERED: MAGNESIUM HYDROX 2400MG/30ML ORAL SUSPENSION 30 ML CUP PO PRN (17:03)
[2017-07-21] MEDS ORDERED: guaiFENesin/D-METHORPHAN HB 10 ML UNIT-DOSE CUPS PO PRN (17:03)
[2017-07-21] MEDS ORDERED: MENTHOL/PHENOL 1 EACH UD MM PRN (17:03)
[2017-07-21] MEDS ORDERED: IBUPROFEN 400 MG TABLET (FP) PO PRN (17:03)
[2017-07-21] MEDS ORDERED: LOPERAMIDE HCL 2 MG CAPSULE PO PRN (17:03)
[2017-07-21] MEDS: INDOMETHACIN 25 MG CAPSULE PO SCH (17:32)
[2017-07-21] MEDS ORDERED: ONDANSETRON *ODT* 4 MG TABLET SL PRN (17:34)
[2017-07-21] MEDS: diphenhydrAMINE HCL 25 MG CAPSULE (FP) PO PRN (17:57)
[2017-07-21] MEDS: diphenhydrAMINE HCL 50 MG CAPSULE PO PRN (22:28)
[2017-07-21] MEDS: THIAMINE HCL 100 MG TABLET (FP) PO SCH (22:28)
[2017-07-21] MEDS: diazePAM 5 MG TABLET PO SCH (22:28)
[2017-07-21] MEDS: ATORVASTATIN CA 10 MG TABLET (FP) PO SCH (22:28)
[2017-07-22] MEDS: diazePAM 5 MG TABLET PO SCH ×3 (05:50→22:13)
[2017-07-22] MEDS: INDOMETHACIN 25 MG CAPSULE PO SCH (07:22)
[2017-07-22] MEDS: amLODIPine BESYLATE 5 MG TABLET (FP) PO SCH (09:56)
[2017-07-22] MEDS: diazePAM 5 MG TABLET PO PRN ×2 (09:56→17:16)
[2017-07-22] MEDS: LISINOPRIL 5 MG TABLET (FP) PO SCH (09:56)
[2017-07-22] MEDS: ASPIRIN 81 MG CHEWABLE TABLETS PO SCH (09:56)
[2017-07-22] MEDS: PRENATAL VITAMINS W/ FOLIC ACID TABLET (FP) PO SCH (09:57)
[2017-07-22 10:07] LABS: MCH 31.9 pg (25.7-33.7); MCHC 33.7 g/dl (32.0-35.9); MEAN CELL VOLUME 94.6 fl (80-96); MEAN PLT VOLUME 7.5 fl (7.5-11.1); PLATELET COUNT 306 K/MM3 (134-434); RDW 15.9 % (11.9-15.9); WHITE BLOOD COUNT 3.7 K/mm3 (4.0-10.0)
[2017-07-22 10:26] LABS: ALBUMIN 3.8 g/dl (3.4-5.0); ALK PHOS 52 U/L (45-117); ANION GAP 5 (8-16); BILIRUBIN,TOTAL 0.7 mg/dL (0.2-1.0); CO2 31 mmol/L (21-32); CREATININE 1.1 mg/dL (0.7-1.3); GLUCOSE,RANDOM 76 mg/dL (74-106); SGOT/AST 64 U/L (15-37); SGPT/ALT 49 U/L (12-78); TOT PROT 6.6 g/dl (6.4-8.2)
[2017-07-22 11:22] LABS: HIV 1 & 2 AB NEGATIVE; HIV 1 AGp24 NEGATIVE
--- NOTE | 2017-07-22 11:31 | EKG ---
Test Reason : Blood Pressure : / mmHG Vent. Rate : 075 BPM Atrial Rate : 075 BPM P-R Int : 152 ms QRS Dur : 092 ms QT Int : 370 ms P-R-T Axes : 051 054 052 degrees QTc Int : 413 ms NORMAL SINUS RHYTHM VOLTAGE CRITERIA FOR LEFT VENTRICULAR HYPERTROPHY ABNORMAL ECG WHEN COMPARED WITH ECG OF 06-MAR-2017 21:33, NO SIGNIFICANT CHANGE WAS FOUND Confirmed by VICKI ALVARES MD ([id number]) on 07/22/2017 11:31:07 AM Referred By: Confirmed By:VICKI ALVARES MD
--- NOTE | 2017-07-22 12:00 | PN ---
[facility] CIWA - CIWA Score Nausea/Vomitin-Int. Nausea w/Dry Heave Muscle Tremors: 3 Anxiety: 3 Agitation: 1-Slight > Activity Paroxysmal Sweats: 3 Orientation: 0-Oriented Tacttile Disturbances: 3-Moderate Itch/Numb/Burn Auditory Disturbances: 0-None Visual Disturbances: 0-None Headache: 0-None Present CIWA-Ar Total Score: 17 BHS Progress Note (SOAP) Subjective: Nausea, Sweating, Chills. Objective: PT. A & O X 3, OBSERVED AMBULATING ON UNIT. NO ACUTE DISTRESS. 07/22/17 11:55 Vital Signs Temperature 97.3 F L 07/22/17 06:22 Pulse Rate 54 L 07/22/17 09:33 Respiratory Rate 18 07/22/17 09:33 Blood Pressure 120/85 07/22/17 09:33 O2 Sat by Pulse Oximetry (%) Laboratory Tests 07/22/17 07/22/17 07/22/17 07:00 07:00 07:00 WBC 3.7 L RBC 4.31 Hgb 13.8 Hct 40.8 MCV 94.6 MCH 31.9 MCHC 33.7 RDW 15.9 Plt Count 306 MPV 7.5 Sodium 138 Potassium 4.3 Chloride 102 Carbon Dioxide 31 Anion Gap 5 L BUN 15 Creatinine 1.1 Creat Clearance w eGFR > 60 Random Glucose 76 Calcium 9.0 Total Bilirubin 0.7 D AST 64 H D ALT 49 Alkaline Phosphatase 52 D Total Protein 6.6 Albumin 3.8 HIV 1&2 Antibody Screen Negative HIV P24 Antigen Negative LABS NOTED. RPR, UA RESULTS PENDING. 07/22/17 11:57 Assessment: 07/22/17 11:56 WITHDRAWAL SYMPTOMS. Plan: CONTINUE DETOX. PATIENT REPORTS THAT, PER HIS FURNITURE RESTORER, DR. LINARES, HE ONLY TAKES INDOMETHACIN, 25 MG PO TIDCM DURING ACUTE GOUT FLARE-UPS. PATIENT DENIES CURRENT GOUT FLARE-UP AND DECLINING TO TAKE INDOMETHACIN. D/C INDOMETHACIN.
[2017-07-22] MEDS: diphenhydrAMINE HCL 25 MG CAPSULE (FP) PO PRN (14:10)
--- NOTE | 2017-07-22 17:44 | CONSULT ---
[facility] Psychiatric Consult - Data Date of interview: 07/22/17 Admission source: [facility] Identifying data: Another admission to [facility] for this 46 y/o AA male seeking detox treatment for alcohol,xanax,cocaine and marijuana dependence.Patient is single,a father of four (none,in last encounter of 03/2017) ,domiciled,unemployed and deprived of any means of income. Substance Abuse History: Discussed with patient in this session.Mr Kaminski confirms this report. Smoking Cessation. Smoking history: Former smoker. Have you smoked in the past 12 months: No. Aproximately how many cigarettes per day: 10. If you are a former smoker, when did you quit?: 2010. Hx Chewing Tobacco Use: No. Initiated information on smoking cessation: No. 'Breaking Loose' booklet given: 07/21/17. - Substance & Tx. History. Hx Alcohol Use: Yes. Hx Substance Use: Yes. Substance Use Type: Alcohol, Cocaine, Marijuana, Tranquilizers. - Substances Abused. Alcohol. Route: Oral. Frequency: Daily. Amount used: claudia(3 pints)/beer-15-12 oz cans. Age of first use: 14. Date of Last Use: 07/21/17. Alprazolam (Xanax). Route: Oral. Frequency: Daily. Amount used: 5 (2mg stiks). Age of first use: 46. Date of Last Use: . Cocaine. Route: Inhalation. Frequency: 1-3 times last 30 days. Amount used: $30. Age of first use: 27. Date of Last Use: 07/20/17. Marijuana/Hashish. Route: Smoking. Frequency: Daily. Amount used: $30. Age of first use: 14. Date of Last Use: 07/20/17 Medical History: Hypertension. Psychiatric History: Patient denies. Physical/Sexual Abuse/Trauma History: Patient denies. Additional Comment: Urine Drug Screen Results: THC-Marijuana, RENUKA-Cocaine, BZO- Benzodiazepines.Noted. Mental Status Exam - Mental Status Exam Alert and Oriented to: Time, Place, Person Cognitive Function: Good Patient Appearance: Well Groomed Mood: Hopeful, Euthymic Affect: Appropriate, Normal Range Patient Behavior: Appropriate, Cooperative Speech Pattern: Clear Voice Loudness: Normal Thought Process: Intact, Goal Oriented Thought Disorder: Not Present Hallucinations: Denies Suicidal Ideation: Denies Homicidal Ideation: Denies Insight/Judgement: Fair Sleep: Well Appetite: Good Muscle strength/Tone: Normal Gait/Station: Normal Psychiatric Findings - Problem List ([facility] [place] 1, 2,3) (1) Alcohol dependence with uncomplicated withdrawal Current Visit: Yes Status: Acute (2) Uncomplicated sedative, hypnotic or anxiolytic withdrawal Current Visit: Yes Status: Acute (3) Cannabis dependence Current Visit: Yes Status: Acute (4) Cocaine dependence Current Visit: Yes Status: Acute Qualifiers: Substance use status: uncomplicated Qualified Code(s): F14.20 - Cocaine dependence, uncomplicated (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
[2017-07-22 21:09] LABS: URINE APPEARANCE CLEAR; URINE BILIRUBIN NEGATIVE (NEGATIVE); URINE BLOOD NEGATIVE (NEGATIVE); URINE COLOR LTYELLOW; URINE GLUCOSE (UA) NEGATIVE (NEGATIVE); URINE KETONE NEGATIVE (NEGATIVE); URINE LEUK ESTERASE NEGATIVE (NEGATIVE); URINE NITRITE NEGATIVE (NEGATIVE); URINE PROTEIN NEGATIVE (NEGATIVE); URINE UROBILINOGEN NEGATIVE mg/dL (0.2-1.0)
[2017-07-22] MEDS: THIAMINE HCL 100 MG TABLET (FP) PO SCH (22:13)
[2017-07-22] MEDS: ATORVASTATIN CA 10 MG TABLET (FP) PO SCH (22:13)
[2017-07-22] MEDS: diphenhydrAMINE HCL 50 MG CAPSULE PO PRN (22:13)
[2017-07-23] MEDS: diazePAM 5 MG TABLET PO PRN ×2 (05:59→14:13)
[2017-07-23] MEDS: amLODIPine BESYLATE 5 MG TABLET (FP) PO SCH (10:19)
[2017-07-23] MEDS: LISINOPRIL 5 MG TABLET (FP) PO SCH (10:19)
[2017-07-23] MEDS: ASPIRIN 81 MG CHEWABLE TABLETS PO SCH (10:19)
[2017-07-23] MEDS: PRENATAL VITAMINS W/ FOLIC ACID TABLET (FP) PO SCH (10:19)
[2017-07-23] MEDS: diazePAM 5 MG TABLET PO SCH ×2 (10:19→23:10)
[2017-07-23] MEDS: BACITRACIN 0.9 GM PACKET TP SCH (10:21)
--- NOTE | 2017-07-23 12:06 | PN ---
S CIWA - CIWA Score Nausea/Vomitin-Mild Nausea/No Vomiting Muscle Tremors: 4-Moderate,w/Arms Extend Anxiety: 4-Mod. Anxious/Guarded Agitation: 0-Normal Activity Paroxysmal Sweats: 2 Orientation: 0-Oriented Tacttile Disturbances: 0-None Auditory Disturbances: 0-None Visual Disturbances: 3-Moderate Sensitivity Headache: 0-None Present CIWA-Ar Total Score: 14 BHS Progress Note (SOAP) Subjective: Constipation, Tremors. Objective: PT. A & O X 3. NO ACUTE DISTRESS. 07/23/17 12:04 Vital Signs Temperature 96.5 F L 07/23/17 09:29 Pulse Rate 62 07/23/17 09:29 Respiratory Rate 18 07/23/17 09:29 Blood Pressure 122/87 07/23/17 09:29 O2 Sat by Pulse Oximetry (%) Laboratory Tests 07/22/17 07/22/17 07/22/17 07:00 07:00 07:00 WBC 3.7 L RBC 4.31 Hgb 13.8 Hct 40.8 MCV 94.6 MCH 31.9 MCHC 33.7 RDW 15.9 Plt Count 306 MPV 7.5 Sodium 138 Potassium 4.3 Chloride 102 Carbon Dioxide 31 Anion Gap 5 L BUN 15 Creatinine 1.1 Creat Clearance w eGFR > 60 Random Glucose 76 Calcium 9.0 Total Bilirubin 0.7 D AST 64 H D ALT 49 Alkaline Phosphatase 52 D Total Protein 6.6 Albumin 3.8 Urine Color Urine Appearance Urine pH Ur Specific [place] Urine Protein Urine Glucose (UA) Urine Ketones Urine Blood Urine Nitrite Urine Bilirubin Urine Urobilinogen Ur Leukocyte Esterase RPR Titer HIV 1&2 Antibody Screen Negative HIV P24 Antigen Negative 07/22/17 07/22/17 07:00 13:00 WBC RBC Hgb Hct MCV MCH MCHC RDW Plt Count MPV Sodium Potassium Chloride Carbon Dioxide Anion Gap BUN Creatinine Creat Clearance w eGFR Random Glucose Calcium Total Bilirubin AST ALT Alkaline Phosphatase Total Protein Albumin Urine Color Ltyellow Urine Appearance Clear Urine pH 6.0 Ur Specific [place] 1.015 Urine Protein Negative Urine Glucose (UA) Negative Urine Ketones Negative Urine Blood Negative Urine Nitrite Negative Urine Bilirubin Negative Urine Urobilinogen Negative Ur Leukocyte Esterase Negative RPR Titer Nonreactive HIV 1&2 Antibody Screen HIV P24 Antigen LABS NOTED. Assessment: 07/23/17 12:05 WITHDRAWAL SYMPTOMS. Plan: CONTINUE DETOX.
[2017-07-23] MEDS: ATORVASTATIN CA 10 MG TABLET (FP) PO SCH (23:10)
[2017-07-23] MEDS: THIAMINE HCL 100 MG TABLET (FP) PO SCH (23:10)
[2017-07-24] MEDS: diazePAM 5 MG TABLET PO SCH ×2 (10:56→22:41)
[2017-07-24] MEDS: LISINOPRIL 5 MG TABLET (FP) PO SCH (10:56)
[2017-07-24] MEDS: ASPIRIN 81 MG CHEWABLE TABLETS PO SCH (10:56)
[2017-07-24] MEDS: PRENATAL VITAMINS W/ FOLIC ACID TABLET (FP) PO SCH (10:56)
[2017-07-24] MEDS: amLODIPine BESYLATE 5 MG TABLET (FP) PO SCH (10:56)
[2017-07-24] MEDS: BACITRACIN 0.9 GM PACKET TP SCH (10:57)
[2017-07-24] MEDS: diphenhydrAMINE HCL 25 MG CAPSULE (FP) PO PRN (10:58)
--- NOTE | 2017-07-24 12:04 | PN ---
BHS Progress Note (SOAP) Subjective: Body Aches, Anxious. Objective: PT. A & O X 3, OBSERVED AMBULATING ON UNIT. NO ACUTE DISTRESS. 07/24/17 12:03 Vital Signs Temperature 98.3 F 07/24/17 09:20 Pulse Rate 68 07/24/17 09:20 Respiratory Rate 18 07/24/17 09:20 Blood Pressure 131/97 07/24/17 09:20 O2 Sat by Pulse Oximetry (%) Laboratory Tests 07/22/17 07/22/17 07/22/17 07:00 07:00 07:00 WBC 3.7 L RBC 4.31 Hgb 13.8 Hct 40.8 MCV 94.6 MCH 31.9 MCHC 33.7 RDW 15.9 Plt Count 306 MPV 7.5 Sodium 138 Potassium 4.3 Chloride 102 Carbon Dioxide 31 Anion Gap 5 L BUN 15 Creatinine 1.1 Creat Clearance w eGFR > 60 Random Glucose 76 Calcium 9.0 Total Bilirubin 0.7 D AST 64 H D ALT 49 Alkaline Phosphatase 52 D Total Protein 6.6 Albumin 3.8 Urine Color Urine Appearance Urine pH Ur Specific [place] Urine Protein Urine Glucose (UA) Urine Ketones Urine Blood Urine Nitrite Urine Bilirubin Urine Urobilinogen Ur Leukocyte Esterase RPR Titer HIV 1&2 Antibody Screen Negative HIV P24 Antigen Negative 07/22/17 07/22/17 07:00 13:00 WBC RBC Hgb Hct MCV MCH MCHC RDW Plt Count MPV Sodium Potassium Chloride Carbon Dioxide Anion Gap BUN Creatinine Creat Clearance w eGFR Random Glucose Calcium Total Bilirubin AST ALT Alkaline Phosphatase Total Protein Albumin Urine Color Ltyellow Urine Appearance Clear Urine pH 6.0 Ur Specific [place] 1.015 Urine Protein Negative Urine Glucose (UA) Negative Urine Ketones Negative Urine Blood Negative Urine Nitrite Negative Urine Bilirubin Negative Urine Urobilinogen Negative Ur Leukocyte Esterase Negative RPR Titer Nonreactive HIV 1&2 Antibody Screen HIV P24 Antigen LABS NOTED. Assessment: 07/24/17 12:03 WITHDRAWAL SYMPTOMS. Plan: CONTINUE DETOX.
[2017-07-24] MEDS: THIAMINE HCL 100 MG TABLET (FP) PO SCH (22:41)
[2017-07-24] MEDS: ATORVASTATIN CA 10 MG TABLET (FP) PO SCH (22:41)
[2017-07-25 06:38] VITALS: BP 130/92; PULSE 70; TEMP 97
[2017-07-25] MEDS ORDERED: diazePAM 5 MG TABLET PO SCH (10:00)
--- NOTE | 2017-07-25 13:07 | PN ---
[facility] Progress Note Note: Psychiatry Attending's note (delayed) :
--- NOTE | 2017-07-25 16:44 | DS ---
[facility] Detox Discharge Summary Admission Date: 07/21/17 Discharge Date: 07/25/17 - History Present History: Alcohol Dependence, Cannabis Dependence, Cocaine Dependence, Sedative Dependence Additional Comments: PATIENT GOING TO '[facility] ([place], [place]) FOR AFTERCARE. PATIENT ADVISED TO FOLLOW-UP THERE FOR AFTERCARE PER DISCHARGE ARRANGEMENT. PATIENT WAS DISCHARGED FROM UNIT IN STABLE MEDICAL CONDITION. Pertinent Past History: Gout, GERD, HTN, Hypercholesterolemia, History of Thymoma, History of Seizure, Syncope, Depression. - Physical Exam Results Vital Signs: Vital Signs Temperature 97.0 F L 07/25/17 06:37 Pulse Rate 70 07/25/17 06:37 Respiratory Rate 18 07/25/17 06:37 Blood Pressure 130/92 07/25/17 06:37 O2 Sat by Pulse Oximetry (%) Pertinent Admission Physical Exam Findings: WITHDRAWAL SYMPTOMS. Laboratory Tests 07/22/17 07/22/17 07/22/17 07:00 07:00 07:00 WBC 3.7 L RBC 4.31 Hgb 13.8 Hct 40.8 MCV 94.6 MCH 31.9 MCHC 33.7 RDW 15.9 Plt Count 306 MPV 7.5 Sodium 138 Potassium 4.3 Chloride 102 Carbon Dioxide 31 Anion Gap 5 L BUN 15 Creatinine 1.1 Creat Clearance w eGFR > 60 Random Glucose 76 Calcium 9.0 Total Bilirubin 0.7 D AST 64 H D ALT 49 Alkaline Phosphatase 52 D Total Protein 6.6 Albumin 3.8 Urine Color Urine Appearance Urine pH Ur Specific [place] Urine Protein Urine Glucose (UA) Urine Ketones Urine Blood Urine Nitrite Urine Bilirubin Urine Urobilinogen Ur Leukocyte Esterase RPR Titer HIV 1&2 Antibody Screen Negative HIV P24 Antigen Negative 07/22/17 07/22/17 07:00 13:00 WBC RBC Hgb Hct MCV MCH MCHC RDW Plt Count MPV Sodium Potassium Chloride Carbon Dioxide Anion Gap BUN Creatinine Creat Clearance w eGFR Random Glucose Calcium Total Bilirubin AST ALT Alkaline Phosphatase Total Protein Albumin Urine Color Ltyellow Urine Appearance Clear Urine pH 6.0 Ur Specific [place] 1.015 Urine Protein Negative Urine Glucose (UA) Negative Urine Ketones Negative Urine Blood Negative Urine Nitrite Negative Urine Bilirubin Negative Urine Urobilinogen Negative Ur Leukocyte Esterase Negative RPR Titer Nonreactive HIV 1&2 Antibody Screen HIV P24 Antigen LABS NOTED. - Treatment Hospital Course: Detox Protocol Followed, Detoxed Safely, Responded well, Discharged Condition Good Patient has Accepted a Rehab Referral to: PATIENT GOING TO '[facility] ([place], [place]) FOR AFTERCARE. - Medication Discharge Medications: Ambulatory Orders Amlodipine Besylate [Norvasc -] 5 mg PO DAILY #30 tablet 01/10/15 Indomethacin [Indocin -] 25 mg PO TIDCM #90 capsule 01/10/15 Simvastatin [Zocor -] 20 mg PO HS #30 01/10/15 Aspirin [ASA -] 81 mg PO DAILY 03/06/17 Lisinopril [Prinivil] 5 mg PO DAILY 07/21/17 Thiamine HCl [Vitamin B1 -] 100 mg PO DAILY 07/21/17 - Diagnosis (1) Alcohol dependence with uncomplicated withdrawal Status: Acute (2) Cannabis dependence Status: Acute (3) Cocaine dependence Status: Acute Qualifiers: Substance use status: uncomplicated Qualified Code(s): F14.20 - Cocaine dependence, uncomplicated (4) Syncope Status: Acute Qualifiers: Syncope type: unspecified Qualified Code(s): R55 - Syncope and collapse (5) Uncomplicated sedative, hypnotic or anxiolytic withdrawal Status: Acute (6) Essential (primary) hypertension Status: Chronic (7) GERD (gastroesophageal reflux disease) Status: Chronic Qualifiers: Esophagitis presence: esophagitis presence not specified Qualified Code(s): K21.9 - Gastro-esophageal reflux disease without esophagitis (8) Gout Status: Chronic Qualifiers: Gout site: unspecified site Gout etiology: unspecified cause Chronicity: unspecified Qualified Code(s): M10.9 - Gout, unspecified (9) Hypercholesterolemia Status: Chronic (10) Nicotine dependence Status: Chronic Qualifiers: Nicotine product type: cigarettes Substance use status: uncomplicated Qualified Code(s): F17.210 - Nicotine dependence, cigarettes, uncomplicated (11) Alcohol related seizure Status: Acute (12) History of thymoma Status: Chronic - AMA Did Patient Leave Against Medical Advice: No
== END 2017-07-25 07:05 | disposition home or self-care (01) | DRG 774 ==
LOC: YASAS 15:33 → Y3N 16:31
PROVIDERS: ADMIT Internal Medicine; ATTEND Internal Medicine
PROC: HZ2ZZZZ Detoxification Services for Substance Abuse Treatment (ICD-10-PCS; principal; 2017-07-25)
DX: F13.230 Sedative, hypnotic or anxiolytic dependence with withdrawal, uncomplicated (principal); F10.230 Alcohol dependence with withdrawal, uncomplicated; F14.20 Cocaine dependence, uncomplicated; F12.20 Cannabis dependence, uncomplicated; F17.210 Nicotine dependence, cigarettes, uncomplicated; G40.509 Epileptic seizures related to external causes, not intractable, without status epilepticus; K21.9 Gastro-esophageal reflux disease without esophagitis; M10.9 Gout, unspecified
CPT/HCPCS: 36415; 80053; 81003; 85027; 86593; 87389; 93005; 93010

== ENCOUNTER 2018-03-22 19:04 | Inpatient (IN) | payer OTHER ==
[2018-03-22 19:25] VITALS: BMI 27.0
--- NOTE | 2018-03-22 21:04 | HP ---
CIWA Score - CIWA Score Nausea/Vomitin Muscle Tremors: 3 Anxiety: 3 Agitation: 3 Paroxysmal Sweats: 3 Orientation: 0-Oriented Tacttile Disturbances: 2-Mild Itch/Numbness/Burn Auditory Disturbances: 0-None Visual Disturbances: 0-None Headache: 0-None Present CIWA-Ar Total Score: 17 Admission ROS S - HPI Chief Complaint: "i am here to detox from Xanax and alcohol Allergies/Adverse Reactions: Allergies Allergy/AdvReac Type Severity Reaction Status Date / Time colchicine Allergy Intermediate Rash Verified 03/22/18 21:02 Fish Containing Products Allergy Intermediate Hives Verified 03/22/18 21:02 History of Present Illness: 47 y/o male with a long hx of alcohol addiction presents requesting detox. Pt states he has been drinking alcohol since age 14. Pt has had previous episode with [facility]. Has a hx of anxiety but denies any significant medical hx. Exam Limitations: No Limitations - Ebola screening Have you traveled outside of the country in the last 21 days: No (N) Have you had contact with anyone from an Ebola affected area: No Have you been sick,other than usual withdrawal symptoms: No Do you have a fever: No - Review of Systems Constitutional: Chills EENT: reports: Nose Congestion Respiratory: reports: No Symptoms reported Cardiac: reports: No Symptoms Reported GI: reports: Nausea : reports: No Symptoms Reported Musculoskeletal: reports: Neck Pain (from a C2 fracture x 2014) Integumentary: reports: Bruising (to L arm s/p IV insertion at ED) Neuro: reports: Other (itching to groin, hair, finger) Endocrine: reports: No Symptoms Reported Hematology: reports: No Symptoms Reported Psychiatric: reports: No Sypmtoms Reported, Orientated x3, Anxious Other Systems: Reviewed and Negative Patient History - Patient Medical History Hx Anemia: No Hx Asthma: No Hx Chronic Obstructive Pulmonary Disease (COPD): No Hx Cancer: No Hx Cardiac Disorders: No Hx Congestive Heart Failure: No Hx Hypertension: Yes (NORVASC 10 MG AND LISINOPRIL 5 MGS./D) Hx Hypercholesterolemia: Yes (ON ZOCOR) Hx Pacemaker: No HX Cerebrovascular Accident: No Hx Seizures: Yes (WITHDRAWAL SEIZURE - LAST EPISODE WAS IN 2012) Hx Dementia: No Hx Diabetes: No Hx Gastrointestinal Disorders: No Hx Liver Disease: No Hx Genitourinary Disorders: No Hx Sexually Transmitted Disorders: No Hx Renal Disease (ESRD): No Hx Thyroid Disease: No Hx Human Immunodeficiency Virus (HIV): No (NEGATIVE HX last 04/17 negative) Hx Hepatitis C: No (NEGATIVE) Hx Depression: Yes (no medication) Hx Suicide Attempt: No (denies past nor current SI) Hx Bipolar Disorder: Yes (ANXIETY DISORDER) Hx Schizophrenia: No - Patient Surgical History Past Surgical History: Yes Hx Neurologic Surgery: No Hx Cataract Extraction: No Hx Cardiac Surgery: Yes (TUMOR REMOVAL 2009--[facility]) Hx Lung Surgery: No Hx Breast Surgery: No Hx Breast Biopsy: No Hx Abdominal Surgery: No Hx Appendectomy: No Hx Cholecystectomy: No Hx Genitourinary Surgery: No Hx Section: No Hx Orthopedic Surgery: Yes (fx of left ankle in 1984) Anesthesia Reaction: No - PPD History Date: 03/08/17 Results: 0 MM - Smoking Cessation Smoking history: Current every day smoker Have you smoked in the past 12 months: Yes Aproximately how many cigarettes per day: 5 If you are a former smoker, when did you quit?: 2010 Hx Chewing Tobacco Use: No Initiated information on smoking cessation: Yes 'Breaking Loose' booklet given: 03/22/18 - Substance & Tx. History Hx Alcohol Use: Yes - Substances Abused Alcohol Route: Oral Frequency: Daily Amount used: Smiley 7 pints Age of first use: 14 Date of Last Use: 03/21/18 Alprazolam (Xanax) Route: Oral Frequency: Daily Amount used: 2mg - 5 sticks Age of first use: 29 Date of Last Use: 03/20/18 Marijuana/Hashish Route: Smoking Frequency: 1-2 times per week Amount used: 2 bundle Age of first use: 14 Date of Last Use: 03/20/18 Family Disease History - Family Disease History Family Disease History: Diabetes: Father (HTN-ALIVE), Mother (HTN-ALIVE), Other : Father, Mother Admission Physical Exam BHS - Vital Signs Vital Signs: Vital Signs - 24 hr 03/22/18 19:23 Temperature 100.6 F H Pulse Rate 102 H Respiratory 18 Rate Blood Pressure 136/94 - Physical General Appearance: Yes: Mild Distress HEENTM: Yes: Nasal Congestion Respiratory: Yes: Lungs Clear, Normal Breath Sounds Neck: Yes: No masses,lesions,Nodules, Trachea in good position Cardiology: Yes: Tachycardia Abdominal: Yes: Normal Bowel Sounds, Non Tender Genitourinary: Yes: Within Normal Limits Back: Yes: Within Normal Limits Musculoskeletal: Yes: full range of Motion, Gait Steady Extremities: Yes: Normal Capillary Refill Neurological: Yes: Within Normal Limits Integumentary: Yes: Within Normal Limits Lymphatic: Yes: Within Normal Limits - Diagnostic (1) Alcohol dependence with uncomplicated withdrawal Current Visit: No Status: Chronic (2) Uncomplicated sedative, hypnotic or anxiolytic withdrawal Current Visit: No Status: Acute (3) Alcohol related seizure Current Visit: No Status: Acute (4) Cannabis abuse Current Visit: No Status: Acute (5) Depression Current Visit: No Status: Acute (6) Essential (primary) hypertension Current Visit: No Status: Acute (7) Nicotine dependence Current Visit: No Status: Acute Qualifiers: Nicotine product type: cigarettes Substance use status: uncomplicated Qualified Code(s): F17.210 - Nicotine dependence, cigarettes, uncomplicated (8) Cannabis dependence Current Visit: No Status: Chronic (9) Cocaine dependence Current Visit: No Status: Chronic Qualifiers: Substance use status: uncomplicated Qualified Code(s): F14.20 - Cocaine dependence, uncomplicated (10) GERD (gastroesophageal reflux disease) Current Visit: No Status: Chronic Qualifiers: Esophagitis presence: esophagitis presence not specified Qualified Code(s) : K21.9 - Gastro-esophageal reflux disease without esophagitis (11) Hypercholesterolemia Current Visit: No Status: Chronic (12) Drug-induced mood disorder Current Visit: No Status: Suspected Cleared for Admission S - Detox or Rehab [facility] Level of Care: Medically Managed Detox Regimen/Protocol: Valium S Breath Alcohol Content Breath Alcohol Content: 0 Urine Drug Screen - Results Drug Screen Negative: No Urine Drug Screen Results: THC-Marijuana, BZO-Benzodiazepines
[2018-03-22] MEDS ORDERED: IBUPROFEN 400 MG TABLET (FP) PO PRN (21:27)
[2018-03-22] MEDS ORDERED: guaiFENesin/D-METHORPHAN HB 10 ML UNIT-DOSE CUPS PO PRN (21:27)
[2018-03-22] MEDS ORDERED: LOPERAMIDE HCL 2 MG CAPSULE PO PRN (21:27)
[2018-03-22] MEDS ORDERED: P-EPHED 60MG/TRIPROLIDI 2.5MG TABLET PO PRN (21:27)
[2018-03-22] MEDS ORDERED: MAG HYDROX/AL HYDROX/SIMETH 30 ML UNIT-DOSE CUP PO PRN (21:27)
[2018-03-22] MEDS ORDERED: ACETAMINOPHEN 325 MG TABLET (FP) PO PRN (21:27)
[2018-03-22] MEDS ORDERED: NICOTINE POLACRILEX 2 MG GUM BC PRN (21:27)
[2018-03-22] MEDS ORDERED: diazePAM 5 MG TABLET PO PRN (21:27)
[2018-03-22] MEDS ORDERED: MAGNESIUM CITRATE 300 ML BOTTLE PO PRN (21:27)
[2018-03-22] MEDS ORDERED: MAGNESIUM HYDROX 2400MG/30ML ORAL SUSPENSION 30 ML CUP PO PRN (21:27)
[2018-03-22] MEDS ORDERED: MENTHOL/PHENOL 1 EACH UD MM PRN (21:27)
[2018-03-22] MEDS ORDERED: diazePAM 5 MG TABLET PO ONE (21:27)
--- NOTE | 2018-03-22 21:27 | PN ---
[facility] Progress Note Note: Pt denies any medical history during admissions and when told about meds in his records stated he has not been complaint with any of his meds. Pt will be treated based on his symptoms here. Will educate him on the need for follow up with a PMD after discharge who can then do lab work and place him on meds as needed.
[2018-03-22] MEDS ORDERED: MELATONIN 5 MG TABLETS PO PRN (22:00)
[2018-03-22] MEDS ORDERED: THIAMINE HCL 100 MG TABLET (FP) PO SCH (22:00)
[2018-03-22] MEDS: diazePAM 5 MG TABLET PO SCH (23:09)
[2018-03-23] MEDS: diazePAM 5 MG TABLET PO SCH ×2 (05:53→14:31)
--- NOTE | 2018-03-23 08:33 | EKG ---
Test Reason : Blood Pressure : / mmHG Vent. Rate : 093 BPM Atrial Rate : 093 BPM P-R Int : 144 ms QRS Dur : 080 ms QT Int : 340 ms P-R-T Axes : 069 055 049 degrees QTc Int : 422 ms NORMAL SINUS RHYTHM VOLTAGE CRITERIA FOR LEFT VENTRICULAR HYPERTROPHY ABNORMAL ECG WHEN COMPARED WITH ECG OF 05-OCT-2017 22:41, NO SIGNIFICANT CHANGE WAS FOUND Confirmed by ANGELICA HALL, JOYA ([id number]) on 03/23/2018 8:33:02 AM Referred By: Confirmed By:JOYA DOMINGUEZ MD
[2018-03-23] MEDS ORDERED: PRENATAL VITAMINS W/ FOLIC ACID TABLET (FP) PO SCH (10:00)
[2018-03-23 10:04] LABS: URINE APPEARANCE TURBID; URINE BILIRUBIN NEGATIVE (<2.0 mg/dL); URINE BLOOD NEGATIVE (NEGATIVE); URINE COLOR AMBER; URINE GLUCOSE (UA) NEGATIVE (NEGATIVE); URINE KETONE NEGATIVE (NEGATIVE); URINE LEUK ESTERASE NEGATIVE (NEGATIVE); URINE NITRITE NEGATIVE (NEGATIVE); URINE PROTEIN NEGATIVE (NEGATIVE); URINE UROBILINOGEN NEGATIVE mg/dL (0.2-1.0)
--- NOTE | 2018-03-23 12:06 | PN ---
S CIWA - CIWA Score Nausea/Vomitin-Mild Nausea/No Vomiting Muscle Tremors: 4-Moderate,w/Arms Extend Anxiety: 3 Agitation: 4-Moderately Restless Paroxysmal Sweats: 1-Minimal Palms Moist Orientation: 0-Oriented Tacttile Disturbances: 1-Very Mild Itch/Numbness Auditory Disturbances: 0-None Visual Disturbances: 0-None Headache: 0-None Present CIWA-Ar Total Score: 14 BHS Progress Note (SOAP) Subjective: mild gi distress sweat tremor restlessness anxiety trouble sleep at night Objective: 03/23/18 12:06 Vital Signs Temperature 98.8 F 03/23/18 06:00 Pulse Rate 87 03/23/18 06:00 Respiratory Rate 18 03/23/18 06:00 Blood Pressure 138/93 03/23/18 06:00 O2 Sat by Pulse Oximetry (%) Laboratory Last Values Urine Color [place] 03/22/18 08:00 Urine Appearance Turbid 03/22/18 08:00 Urine pH 5.0 (5.0-8.0) 03/22/18 08:00 Ur Specific [place] 1.021 (1.001-1.035) 03/22/18 08:00 Urine Protein Negative (NEGATIVE) 03/22/18 08:00 Urine Glucose (UA) Negative (NEGATIVE) 03/22/18 08:00 Urine Ketones Negative (NEGATIVE) 03/22/18 08:00 Urine Blood Negative (NEGATIVE) 03/22/18 08:00 Urine Nitrite Negative (NEGATIVE) 03/22/18 08:00 Urine Bilirubin Negative (<2.0 mg/dL) 03/22/18 08:00 Urine Urobilinogen Negative mg/dL (0.2-1.0) 03/22/18 08:00 Ur Leukocyte Esterase Negative (NEGATIVE) 03/22/18 08:00 lab noted Assessment: 03/23/18 12:06 withdrawal sx Plan: continue detox
--- NOTE | 2018-03-23 13:20 | CONSULT ---
[facility] Psychiatric Consult - Data Date of interview: 03/23/18 Admission source: Self-referred Identifying data: Mr Kaminski is a 47 years old single Black male, father of 4 dchilden, unemployed, domiciled seeking detox treatment for alcohol, benzodiazepine and cannabis Substance Abuse History: Reports history of alcohol, xanax and marijuana use. Refer to addiction counselor's note for further information Medical History: Significant for hypertension, hyperlipidemia and history of fracture left ankle in 1984
[2018-03-23 13:51] VITALS: BP 138/89; PULSE 90; TEMP 97.7
--- NOTE | 2018-03-23 14:15 | PN ---
[facility] Progress Note Note: Patient did not want to be seen
[2018-03-23] MEDS ORDERED: LORATADINE 10 MG TABLET PO SCH (15:15)
--- NOTE | 2018-03-23 17:18 | PN ---
[facility] Progress Note Note: Called up to unit to evaluate pt's complaint of rectal bleeding. Some blood noted in bathroom with pt's stool. Pt c/o pain in his throat, abdominal discomfort and "now this bleeding from where I dont know". I was going to send pt to ED, pt declined ED visit stating that he wants to go visit his own PMD. When reminded that his PMD may not be available at this time or may still send pt to ED for eval, pt acknowledged same but still insists on leaving to go to his PMD. Pt also refused rectal exam. Informed pt that in view of above, pt will be signing out against medical advice. Pt verbalized understanding of same and signed AMA form. Pt was A & O x 3, walking steadily on unit, Bp -142/97, P- 88, R - 19, O2 sat - 100%, T - 99.0F Encounter witnessed by TINO Roberts. .
[2018-03-24] MEDS ORDERED: diazePAM 5 MG TABLET PO SCH (10:00)
[2018-03-26] MEDS ORDERED: diazePAM 5 MG TABLET PO SCH (10:00)
== END 2018-03-23 05:13 | disposition left against medical advice (07) | DRG 770 ==
LOC: YASAS 19:04 → Y6N 20:11
PROVIDERS: ADMIT Internal Medicine; ATTEND Internal Medicine
PROC: HZ2ZZZZ Detoxification Services for Substance Abuse Treatment (ICD-10-PCS; principal; 2018-03-22)
DX: F13.230 Sedative, hypnotic or anxiolytic dependence with withdrawal, uncomplicated (principal); F10.230 Alcohol dependence with withdrawal, uncomplicated; F14.20 Cocaine dependence, uncomplicated; F12.20 Cannabis dependence, uncomplicated; F17.210 Nicotine dependence, cigarettes, uncomplicated; F32.9 Major depressive disorder, single episode, unspecified; F41.9 Anxiety disorder, unspecified; I10 Essential (primary) hypertension; Z86.69 Personal history of other diseases of the nervous system and sense organs
CPT/HCPCS: 81003; 93005; 93010

== ENCOUNTER 2018-08-10 12:31 | Inpatient (IN) | payer OTHER ==
[2018-08-10 15:24] VITALS: BMI 26.1
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
[2018-08-10] MEDS ORDERED: MAG HYDROX/AL HYDROX/SIMETH 30 ML UNIT-DOSE CUP PO PRN (18:58)
[2018-08-10] MEDS ORDERED: LOPERAMIDE HCL 2 MG CAPSULE PO PRN (18:58)
[2018-08-10] MEDS ORDERED: diazePAM 5 MG TABLET PO ONE (18:58)
[2018-08-10] MEDS ORDERED: guaiFENesin/D-METHORPHAN HB 10 ML UNIT-DOSE CUPS PO PRN (18:58)
[2018-08-10] MEDS ORDERED: MENTHOL/PHENOL 1 EACH UD MM PRN (18:58)
[2018-08-10] MEDS ORDERED: MAGNESIUM CITRATE 300 ML BOTTLE PO PRN (18:58)
[2018-08-10] MEDS ORDERED: MAGNESIUM HYDROX 2400MG/30ML ORAL SUSPENSION 30 ML CUP PO PRN (18:58)
[2018-08-10] MEDS ORDERED: P-EPHED 60MG/TRIPROLIDI 2.5MG TABLET PO PRN (18:58)
[2018-08-10] MEDS ORDERED: ACETAMINOPHEN 325 MG TABLET (FP) PO PRN (18:58)
[2018-08-10] MEDS: HYDROCHLOROTHIAZIDE 25 MG TABLET (FP) PO SCH (19:25)
[2018-08-10 21:41] LABS: URINE APPEARANCE CLEAR; URINE BILIRUBIN NEGATIVE (<2.0 mg/dL); URINE COLOR YELLOW; URINE GLUCOSE (UA) NEGATIVE (NEGATIVE); URINE KETONE NEGATIVE (NEGATIVE); URINE LEUK ESTERASE NEGATIVE (NEGATIVE); URINE NITRITE NEGATIVE (NEGATIVE); URINE PROTEIN NEGATIVE (NEGATIVE); URINE UROBILINOGEN NEGATIVE mg/dL (0.2-1.0)
[2018-08-10] MEDS ORDERED: MELATONIN 5 MG TABLETS PO PRN (22:00)
[2018-08-10] MEDS: diazePAM 5 MG TABLET PO SCH (22:15)
[2018-08-10] MEDS: ATORVASTATIN CA 20 MG TABLET (FP) PO SCH (22:16)
[2018-08-10] MEDS: THIAMINE HCL 100 MG TABLET (FP) PO SCH (22:16)
[2018-08-11] MEDS: diazePAM 5 MG TABLET PO SCH ×3 (05:48→21:38)
[2018-08-11] MEDS: diazePAM 5 MG TABLET PO PRN ×2 (10:11→18:02)
[2018-08-11] MEDS: HYDROCHLOROTHIAZIDE 25 MG TABLET (FP) PO SCH (10:12)
[2018-08-11] MEDS: PRENATAL VITAMINS W/ FOLIC ACID TABLET (FP) PO SCH (10:12)
[2018-08-11 10:13] LABS: HEMATOCRIT 40.4 % (35.4-49); HEMOGLOBIN 13.3 GM/dL (11.7-16.9); MCH 30.4 pg (25.7-33.7); MCHC 33.1 g/dl (32.0-35.9); MEAN PLT VOLUME 7.6 fl (7.5-11.1); PLATELET COUNT 315 K/MM3 (134-434); RBC 4.39 M/mm3 (4.00-5.60); RDW 17.9 % (11.9-15.9); WHITE BLOOD COUNT 4.3 K/mm3 (4.0-10.0)
[2018-08-11 10:23] LABS: ALBUMIN 3.7 g/dl (3.4-5.0); ALK PHOS 59 U/L (45-117); ANION GAP 9 MMOL/L (8-16); BILIRUBIN,TOTAL 0.4 mg/dL (0.2-1.0); BLOOD UREA NITROGEN 13 mg/dL (7-18); CHLORIDE 104 mmol/L (98-107); CO2 29 mmol/L (21-32); CREATININE 0.9 mg/dL (0.7-1.3); GLUCOSE,RANDOM 90 mg/dL (74-106); POTASSIUM 4.1 mmol/L (3.5-5.1); SGOT/AST 28 U/L (15-37); SGPT/ALT 31 U/L (12-78); SODIUM 142 mmol/L (136-145); TOT PROT 6.7 g/dl (6.4-8.2)
--- NOTE | 2018-08-11 11:23 | EKG ---
Test Reason : Blood Pressure : / mmHG Vent. Rate : 053 BPM Atrial Rate : 053 BPM P-R Int : 148 ms QRS Dur : 096 ms QT Int : 434 ms P-R-T Axes : 039 057 063 degrees QTc Int : 407 ms SINUS BRADYCARDIA MINIMAL VOLTAGE CRITERIA FOR LVH, MAY BE NORMAL VARIANT BORDERLINE ECG WHEN COMPARED WITH ECG OF 22-MAR-2018 22:17, VENT. RATE HAS DECREASED BY 40 BPM Confirmed by DIA HALL, VICKI ([id number]) on 08/11/2018 11:22:47 AM Referred By: Elaine Robb Confirmed By:VICKI ALVARES MD
--- NOTE | 2018-08-11 14:37 | PN ---
S CIWA - CIWA Score Nausea/Vomitin Muscle Tremors: 3 Anxiety: 3 Agitation: 3 Paroxysmal Sweats: 3 Orientation: 0-Oriented Tacttile Disturbances: 0-None Auditory Disturbances: 0-None Visual Disturbances: 0-None Headache: 0-None Present CIWA-Ar Total Score: 14 S Progress Note (SOAP) Subjective: Shakes Tingling/numbness to toes sweats "My bp gets high when I am withdrawing" Objective: 08/11/18 14:33 A & O x 3 Gait steady No neuro deficits No acute distress Laboratory Last Values WBC 4.3 K/mm3 (4.0-10.0) 08/11/18 07:00 RBC 4.39 M/mm3 (4.00-5.60) 08/11/18 07:00 Hgb 13.3 GM/dL (11.7-16.9) 08/11/18 07:00 Hct 40.4 % (35.4-49) 08/11/18 07:00 MCV 92.0 fl (80-96) 08/11/18 07:00 MCH 30.4 pg (25.7-33.7) 08/11/18 07:00 MCHC 33.1 g/dl (32.0-35.9) 08/11/18 07:00 RDW 17.9 % (11.9-15.9) H 08/11/18 07:00 Plt Count 315 K/MM3 (134-434) 08/11/18 07:00 MPV 7.6 fl (7.5-11.1) 08/11/18 07:00 Sodium 142 mmol/L (136-145) 08/11/18 07:00 Potassium 4.1 mmol/L (3.5-5.1) 08/11/18 07:00 Chloride 104 mmol/L (98-107) 08/11/18 07:00 Carbon Dioxide 29 mmol/L (21-32) 08/11/18 07:00 Anion Gap 9 MMOL/L (8-16) 08/11/18 07:00 BUN 13 mg/dL (7-18) 08/11/18 07:00 Creatinine 0.9 mg/dL (0.7-1.3) 08/11/18 07:00 Creat Clearance w eGFR > 60 (>60) 08/11/18 07:00 Random Glucose 90 mg/dL (74-106) 08/11/18 07:00 Calcium 9.0 mg/dL (8.5-10.1) 08/11/18 07:00 Total Bilirubin 0.4 mg/dL (0.2-1.0) 08/11/18 07:00 AST 28 U/L (15-37) 08/11/18 07:00 ALT 31 U/L (12-78) 08/11/18 07:00 Alkaline Phosphatase 59 U/L (45-117) 08/11/18 07:00 Total Protein 6.7 g/dl (6.4-8.2) 08/11/18 07:00 Albumin 3.7 g/dl (3.4-5.0) 08/11/18 07:00 Urine Color Yellow 08/10/18 18:00 Urine Appearance Clear 08/10/18 18:00 Urine pH 5.0 (5.0-8.0) 08/10/18 18:00 Ur Specific [place] 1.027 (1.001-1.035) 08/10/18 18:00 Urine Protein Negative (NEGATIVE) 08/10/18 18:00 Urine Glucose (UA) Negative (NEGATIVE) 08/10/18 18:00 Urine Ketones Negative (NEGATIVE) 08/10/18 18:00 Urine Blood Negative (NEGATIVE) 08/10/18 18:00 Urine Nitrite Negative (NEGATIVE) 08/10/18 18:00 Urine Bilirubin Negative (<2.0 mg/dL) 08/10/18 18:00 Urine Urobilinogen Negative mg/dL (0.2-1.0) 08/10/18 18:00 Ur Leukocyte Esterase Negative (NEGATIVE) 08/10/18 18:00 RPR Titer Nonreactive (NONREACTIVE) 08/11/18 07:00 HIV 1&2 Antibody Screen Negative 08/11/18 07:00 HIV P24 Antigen Negative 08/11/18 07:00 labs noted Vital Signs Period Temp Pulse Resp BP Sys/Betancur Pulse Ox Last 24 Hr 96.3 F-97.8 F 53-65 18-20 139-162/95-106 Assessment: 08/11/18 14:36 withdrawal sx Plan: continue detox continue Bp monitoring increase water hydration
[2018-08-11] MEDS: IBUPROFEN 400 MG TABLET (FP) PO PRN (18:02)
--- NOTE | 2018-08-11 19:14 | CONSULT ---
[facility] Psychiatric Consult - Data Date of interview: 08/11/18 Admission source: [facility] Identifying data: Another admission to [facility] for this 46 y/o AA male seeking detox treatment for alcohol,xanax,cocaine and marijuana dependence.Patient is single,a father of four (none,in last encounter of 03/2017) ,domiciled,unemployed and deprived of any means of income. Substance Abuse History: Smoking history: Current every day smoker. Have you smoked in the past 12 months: Yes. Aproximately how many cigarettes per day: 5. If you are a former smoker, when did you quit?: 2010. Hx Chewing Tobacco Use: No. Initiated information on smoking cessation: Yes. 'Breaking Loose' booklet given: 08/10/18. - Substance & Tx. History. Hx Alcohol Use: Yes. Hx Substance Use: Yes. Substance Use Type: Cocaine. Hx Substance Use Treatment: Yes. - Substances Abused. Alcohol. Route: Oral. Frequency: Daily. Amount used: Vodka 3 pints , 12 of 12oz of beers. Age of first use: 14. Date of Last Use: 08/10/18. Marijuana/Hashish. Route: Smoking. Frequency: Daily. Amount used: 2 grams. Age of first use: 14. Date of Last Use: . Alprazolam (Xanax). Route: Oral. Frequency: Daily. Amount used: 4 tabs of 2mg. Age of first use: 45. Date of Last Use: 08/09/18 Medical History: Hydrocele,hypertension,gout,GERD,antecedent of withdrawal- related seizures,dyslipidemia and a history of resection of thymoma (2009) + orthosurgery for fracture of left ankle in 1984. Psychiatric History: Onset of psychiatric disturbances : 1994.Patient reports the diagnosis of MDD.Currently on no psychotropic medications but he used to be prescribed mirtazapine.OPD affiliation : none for months.Mr Yamilex admits to previous psychiatric hospitalizations ([facility] + [facility]).Denies history of suicide attempts. Physical/Sexual Abuse/Trauma History: No history. Additional Comment: Urine Drug Screen Results: THC-Marijuana, RENUKA-Cocaine, BAR- Barbiturates, BZO-Benzodiazepines.Noted. Mental Status Exam - Mental Status Exam Alert and Oriented to: Time, Place, Person Cognitive Function: Good Patient Appearance: Well Groomed Mood: Hopeful, Euthymic Affect: Appropriate, Normal Range Patient Behavior: Fatigued, Appropriate, Cooperative Speech Pattern: Clear, Appropriate Voice Loudness: Normal Thought Process: Intact, Goal Oriented Thought Disorder: Not Present Hallucinations: Denies Suicidal Ideation: Denies Homicidal Ideation: Denies Insight/Judgement: Poor Sleep: Poorly, Difficulty falling asleep Appetite: Good Muscle strength/Tone: Normal Gait/Station: Normal Psychiatric Findings - Problem List ([place] 1, 2,3) (1) Alcohol dependence with uncomplicated withdrawal Current Visit: Yes Status: Acute (2) Cannabis dependence Current Visit: Yes Status: Acute (3) Uncomplicated sedative, hypnotic or anxiolytic withdrawal Current Visit: Yes Status: Acute (4) Cocaine dependence Current Visit: Yes Status: Acute (5) Insomnia Current Visit: Yes Status: Acute - Initial Treatment Plan Initial Treatment Plan: Psychoeducation.Sleep hygiene.Detoxification.Remeron 15 mg po hs.Side effects/benefits discussed with the patient.Mr Kaminski agrees to this careplan.Observation.
[2018-08-11] MEDS: MIRTAZAPINE 15 MG TABLET (FP) PO SCH (21:38)
[2018-08-11] MEDS: ATORVASTATIN CA 20 MG TABLET (FP) PO SCH (21:38)
[2018-08-11] MEDS: THIAMINE HCL 100 MG TABLET (FP) PO SCH (21:38)
[2018-08-12] MEDS: PRENATAL VITAMINS W/ FOLIC ACID TABLET (FP) PO SCH (10:35)
[2018-08-12] MEDS: diazePAM 5 MG TABLET PO SCH ×2 (10:35→23:08)
[2018-08-12] MEDS: HYDROCHLOROTHIAZIDE 25 MG TABLET (FP) PO SCH (10:35)
[2018-08-12] MEDS: IBUPROFEN 400 MG TABLET (FP) PO PRN (10:36)
--- NOTE | 2018-08-12 14:11 | PN ---
S CIWA - CIWA Score Nausea/Vomitin-No Nausea/No Vomiting Muscle Tremors: 4-Moderate,w/Arms Extend Anxiety: 4-Mod. Anxious/Guarded Agitation: 4-Moderately Restless Paroxysmal Sweats: 1-Minimal Palms Moist Orientation: 0-Oriented Tacttile Disturbances: 0-None Auditory Disturbances: 0-None Visual Disturbances: 0-None Headache: 0-None Present CIWA-Ar Total Score: 13 BHS Progress Note (SOAP) Subjective: ANXIETY, SWEATS, TREMORS, INTERMITTENT SLEEP. Objective: 08/12/18 14:17 Vital Signs 08/12/18 08/12/18 09:09 13:45 Temperature 96.6 F L 98.5 F Pulse Rate 62 96 H Respiratory 18 18 Rate Blood Pressure 139/97 130/64 Laboratory Tests 08/10/18 08/11/18 08/11/18 18:00 07:00 07:00 WBC 4.3 RBC 4.39 Hgb 13.3 Hct 40.4 MCV 92.0 MCH 30.4 MCHC 33.1 RDW 17.9 H Plt Count 315 MPV 7.6 Sodium Potassium Chloride Carbon Dioxide Anion Gap BUN Creatinine Creat Clearance w eGFR Random Glucose Calcium Total Bilirubin AST ALT Alkaline Phosphatase Total Protein Albumin Urine Color Yellow Urine Appearance Clear Urine pH 5.0 Ur Specific [place] 1.027 Urine Protein Negative Urine Glucose (UA) Negative Urine Ketones Negative Urine Blood Negative Urine Nitrite Negative Urine Bilirubin Negative Urine Urobilinogen Negative Ur Leukocyte Esterase Negative RPR Titer HIV 1&2 Antibody Screen Negative HIV P24 Antigen Negative 08/11/18 08/11/18 07:00 07:00 WBC RBC Hgb Hct MCV MCH MCHC RDW Plt Count MPV Sodium 142 Potassium 4.1 Chloride 104 Carbon Dioxide 29 Anion Gap 9 BUN 13 Creatinine 0.9 Creat Clearance w eGFR > 60 Random Glucose 90 Calcium 9.0 Total Bilirubin 0.4 AST 28 ALT 31 Alkaline Phosphatase 59 Total Protein 6.7 Albumin 3.7 Urine Color Urine Appearance Urine pH Ur Specific [place] Urine Protein Urine Glucose (UA) Urine Ketones Urine Blood Urine Nitrite Urine Bilirubin Urine Urobilinogen Ur Leukocyte Esterase RPR Titer Nonreactive HIV 1&2 Antibody Screen HIV P24 Antigen Assessment: 08/12/18 14:17 WITHDRAWAL SX Plan: CONTINUE DETOX
--- NOTE | 2018-08-12 14:16 | PN ---
BHS Progress Note (SOAP) Subjective: ANXIETY, SWEATS, TREMORS, INTERMITTENT SLEEP. Objective: 08/12/18 14:15 Vital Signs 08/12/18 08/12/18 09:09 13:45 Temperature 96.6 F L 98.5 F Pulse Rate 62 96 H Respiratory 18 18 Rate Blood Pressure 139/97 130/64 Laboratory Tests 08/10/18 08/11/18 08/11/18 18:00 07:00 07:00 WBC 4.3 RBC 4.39 Hgb 13.3 Hct 40.4 MCV 92.0 MCH 30.4 MCHC 33.1 RDW 17.9 H Plt Count 315 MPV 7.6 Sodium Potassium Chloride Carbon Dioxide Anion Gap BUN Creatinine Creat Clearance w eGFR Random Glucose Calcium Total Bilirubin AST ALT Alkaline Phosphatase Total Protein Albumin Urine Color Yellow Urine Appearance Clear Urine pH 5.0 Ur Specific [place] 1.027 Urine Protein Negative Urine Glucose (UA) Negative Urine Ketones Negative Urine Blood Negative Urine Nitrite Negative Urine Bilirubin Negative Urine Urobilinogen Negative Ur Leukocyte Esterase Negative RPR Titer HIV 1&2 Antibody Screen Negative HIV P24 Antigen Negative 08/11/18 08/11/18 07:00 07:00 WBC RBC Hgb Hct MCV MCH MCHC RDW Plt Count MPV Sodium 142 Potassium 4.1 Chloride 104 Carbon Dioxide 29 Anion Gap 9 BUN 13 Creatinine 0.9 Creat Clearance w eGFR > 60 Random Glucose 90 Calcium 9.0 Total Bilirubin 0.4 AST 28 ALT 31 Alkaline Phosphatase 59 Total Protein 6.7 Albumin 3.7 Urine Color Urine Appearance Urine pH Ur Specific [place] Urine Protein Urine Glucose (UA) Urine Ketones Urine Blood Urine Nitrite Urine Bilirubin Urine Urobilinogen Ur Leukocyte Esterase RPR Titer Nonreactive HIV 1&2 Antibody Screen HIV P24 Antigen Assessment: 08/12/18 14:15 WITHDRAWAL SX Plan: CONTINUE DETOX
[2018-08-12] MEDS: diazePAM 5 MG TABLET PO PRN (15:28)
[2018-08-12] MEDS: THIAMINE HCL 100 MG TABLET (FP) PO SCH (23:08)
[2018-08-12] MEDS: MIRTAZAPINE 15 MG TABLET (FP) PO SCH (23:08)
[2018-08-12] MEDS: ATORVASTATIN CA 20 MG TABLET (FP) PO SCH (23:08)
[2018-08-13] MEDS: HYDROCHLOROTHIAZIDE 25 MG TABLET (FP) PO SCH (10:24)
[2018-08-13] MEDS: diazePAM 5 MG TABLET PO SCH ×2 (10:24→22:32)
[2018-08-13] MEDS: PRENATAL VITAMINS W/ FOLIC ACID TABLET (FP) PO SCH (10:24)
--- NOTE | 2018-08-13 15:27 | PN ---
S Progress Note (SOAP) Subjective: ANXIETY,IRRITABILITY. REPORTS DETOX TAPER PROCEEDING WELL. PT ADDRESSED AFTERCARE PLANS WITH HIS COUNSELOR, KATHERYN POON TODAY(SE COUNSELOR'S NOTE). Objective: 08/13/18 15:28 Vital Signs 08/13/18 08/13/18 09:18 13:32 Temperature 97.9 F Pulse Rate 83 108 H Respiratory 18 18 Rate Blood Pressure 117/88 134/94 Laboratory Tests 08/10/18 08/11/18 08/11/18 18:00 07:00 07:00 WBC 4.3 RBC 4.39 Hgb 13.3 Hct 40.4 MCV 92.0 MCH 30.4 MCHC 33.1 RDW 17.9 H Plt Count 315 MPV 7.6 Sodium Potassium Chloride Carbon Dioxide Anion Gap BUN Creatinine Creat Clearance w eGFR Random Glucose Calcium Total Bilirubin AST ALT Alkaline Phosphatase Total Protein Albumin Urine Color Yellow Urine Appearance Clear Urine pH 5.0 Ur Specific [place] 1.027 Urine Protein Negative Urine Glucose (UA) Negative Urine Ketones Negative Urine Blood Negative Urine Nitrite Negative Urine Bilirubin Negative Urine Urobilinogen Negative Ur Leukocyte Esterase Negative RPR Titer HIV 1&2 Antibody Screen Negative HIV P24 Antigen Negative 08/11/18 08/11/18 07:00 07:00 WBC RBC Hgb Hct MCV MCH MCHC RDW Plt Count MPV Sodium 142 Potassium 4.1 Chloride 104 Carbon Dioxide 29 Anion Gap 9 BUN 13 Creatinine 0.9 Creat Clearance w eGFR > 60 Random Glucose 90 Calcium 9.0 Total Bilirubin 0.4 AST 28 ALT 31 Alkaline Phosphatase 59 Total Protein 6.7 Albumin 3.7 Urine Color Urine Appearance Urine pH Ur Specific [place] Urine Protein Urine Glucose (UA) Urine Ketones Urine Blood Urine Nitrite Urine Bilirubin Urine Urobilinogen Ur Leukocyte Esterase RPR Titer Nonreactive HIV 1&2 Antibody Screen HIV P24 Antigen Assessment: 08/13/18 15:30 DECREASED WITHDRAWAL SX Plan: CONTINUE DETOX D/C PT IN A.M TO FOLLOW UP WITH [facility] FOR AFTERCARE.
[2018-08-13] MEDS: MIRTAZAPINE 15 MG TABLET (FP) PO SCH (22:32)
[2018-08-13] MEDS: THIAMINE HCL 100 MG TABLET (FP) PO SCH (22:32)
[2018-08-13] MEDS: ATORVASTATIN CA 20 MG TABLET (FP) PO SCH (22:32)
[2018-08-14 06:45] VITALS: BP 125/87; PULSE 66; TEMP 97.3
[2018-08-14] MEDS ORDERED: diazePAM 5 MG TABLET PO SCH (10:00)
--- NOTE | 2018-08-14 11:11 | DS ---
[facility] Detox Discharge Summary Admission Date: 08/10/18 - History Present History: Alcohol Dependence, Cannabis Dependence, Cocaine Dependence - Physical Exam Results Vital Signs: Vital Signs Temperature 97.3 F L 08/14/18 06:45 Pulse Rate 66 08/14/18 06:45 Respiratory Rate 08/14/18 06:45 Blood Pressure 125/87 08/14/18 06:45 O2 Sat by Pulse Oximetry (%) - Treatment Hospital Course: Detox Protocol Followed, Detoxed Safely, Responded well, Discharged Condition Good - Medication Discharge Medications: Ambulatory Orders Mirtazapine [Remeron -] 15 mg PO HS 08/10/18 Mirtazapine [Remeron -] 15 mg PO HS #30 tablet 08/13/18 Aspirin [ASA -] 81 mg PO DAILY #30 tab.chew 08/14/18 Atorvastatin Ca [Lipitor] 20 mg PO HS #30 tablet 08/14/18 Hydrochlorothiazide [Hctz -] 25 mg PO DAILY #30 tablet 08/14/18 - AMA Did Patient Leave Against Medical Advice: No
== END 2018-08-14 08:53 | disposition home or self-care (01) | DRG 774 ==
LOC: YASAS 12:31 → Y3N 18:13
PROC: HZ2ZZZZ Detoxification Services for Substance Abuse Treatment (ICD-10-PCS; principal; 2018-08-10)
DX: F10.230 Alcohol dependence with withdrawal, uncomplicated (principal); F13.230 Sedative, hypnotic or anxiolytic dependence with withdrawal, uncomplicated; F14.20 Cocaine dependence, uncomplicated; F12.20 Cannabis dependence, uncomplicated; F31.9 Bipolar disorder, unspecified; F41.9 Anxiety disorder, unspecified; G40.509 Epileptic seizures related to external causes, not intractable, without status epilepticus; E78.00 Pure hypercholesterolemia, unspecified; I10 Essential (primary) hypertension; K21.9 Gastro-esophageal reflux disease without esophagitis; M10.9 Gout, unspecified; Z86.018 Personal history of other benign neoplasm
CPT/HCPCS: 36415; 80053; 81003; 85027; 86593; 87389; 93005; 93010

== ENCOUNTER 2019-01-06 11:37 | Inpatient (IN) | payer OTHER ==
[2019-01-06 12:49] VITALS: BMI 25.7
--- NOTE | 2019-01-06 16:53 | HP ---
CIWA Score Nausea/Vomitin Muscle Tremors: 4-Moderate,w/Arms Extend Anxiety: 3 Agitation: 2 Paroxysmal Sweats: 2 Orientation: 0-Oriented Tacttile Disturbances: 0-None Auditory Disturbances: 0-None Visual Disturbances: 1-Very Mild Sensitivity Headache: 2-Mild CIWA-Ar Total Score: 17 - Admission Criteria OASAS Guidelines: Admission for Medically Managed Detox: Requires at least one of the followin. CIWA greater than 12 2. Seizures within the past 24 hours 3. Delirium tremens within the past 24 hours 4. Hallucinations within the past 24 hours 5. Acute intervention needed for co occurring medical disorder 6. Acute intervention needed for co occurring psychiatric disorder 7. Severe withdrawal that cannot be handled at a lower level of care (continued vomiting, continued diarrhea, abnormal vital signs) requiring intravenous medication and/or fluids 8. Admission ROS S - HPI Chief Complaint: " I need help with my anxiety and substance use' Allergies/Adverse Reactions: Allergies Allergy/AdvReac Type Severity Reaction Status Date / Time colchicine Allergy Intermediate Rash Verified 01/06/19 16:33 Fish Containing Products Allergy Intermediate Hives Verified 01/06/19 16:33 History of Present Illness: 48 yo male with hs of alcohol, THC and xanax dependence is here seeking detox. Reports was hospitalized for ETOH intoxication two weeks ago at [facility]. Last detox [facility] Aug 2018, reports relapsed November 2018. PMHX :Hx of HTN, high cholesterol, Gout, Hydrocele, Anxiety, Depression. Reports three years of sobriety 1994 - 1997 by attending AA meetings, going to rastafarian. Denies SI/HI. Reports hx of ETOH seizure 2014 and frequent blackouts with last episode yesterday. Exam Limitations: No Limitations - Ebola screening Have you traveled outside of the country in the last 21 days: No Have you had contact with anyone from an Ebola affected area: No Have you been sick,other than usual withdrawal symptoms: No Do you have a fever: No - Review of Systems Constitutional: Loss of Appetite, Changes in sleep, Weakness, Other (fatigue) EENT: reports: Blurred Vision (uses glasses), Nose Congestion Respiratory: reports: Cough (x 3 weeks in AM) Cardiac: reports: No Symptoms Reported GI: reports: Nausea, Poor Fluid Intake : reports: See HPI Musculoskeletal: reports: No Symptoms Reported Integumentary: reports: No Symptoms Reported Neuro: reports: Headache, Tingling (right foot) Endocrine: reports: Excessive Sweating, Increased Thirst, Other (thymus removal 2010) Hematology: reports: No Symptoms Reported Psychiatric: reports: Orientated x3, Anxious, Depressed Other Systems: Reviewed and Negative Patient History - Patient Medical History Hx Anemia: No Hx Asthma: No Hx Chronic Obstructive Pulmonary Disease (COPD): No Hx Cancer: No Hx Cardiac Disorders: No Hx Congestive Heart Failure: No Hx Hypertension: Yes (on meds.) Hx Hypercholesterolemia: Yes (ON ZOCOR) Hx Pacemaker: No HX Cerebrovascular Accident: No Hx Seizures: Yes (etoh related in 2015) Hx Dementia: No Hx Diabetes: No Hx Gastrointestinal Disorders: No Hx Liver Disease: No Hx Genitourinary Disorders: No Hx Sexually Transmitted Disorders: No Hx Renal Disease (ESRD): No Hx Thyroid Disease: No Hx Human Immunodeficiency Virus (HIV): No (NEGATIVE HX last 10/19 negative) Hx Hepatitis C: No (NEGATIVE) Hx Depression: Yes Hx Suicide Attempt: No Hx Bipolar Disorder: Yes (ANXIETY DISORDER) Hx Schizophrenia: No - Patient Surgical History Past Surgical History: Yes Hx Neurologic Surgery: No Hx Cataract Extraction: No Hx Cardiac Surgery: Yes (Thymus TUMOR REMOVAL 2009--[facility]) Hx Lung Surgery: No Hx Breast Surgery: No Hx Breast Biopsy: No Hx Abdominal Surgery: No Hx Appendectomy: No Hx Cholecystectomy: No Hx Genitourinary Surgery: No Hx Section: No Hx Orthopedic Surgery: Yes (fx of left ankle in 1984) Anesthesia Reaction: No - PPD History Previous Implant?: Yes Documented Results: Negative w/proof Implanted On Prior [facility] Admission?: Yes Date: 08/12/18 Results: 0 mm - Smoking Cessation Smoking history: Current every day smoker Have you smoked in the past 12 months: Yes Aproximately how many cigarettes per day: 5 If you are a former smoker, when did you quit?: 2010 Hx Chewing Tobacco Use: No Initiated information on smoking cessation: Yes 'Breaking Loose' booklet given: 01/06/19 - Substance & Tx. History Hx Alcohol Use: Yes Hx Substance Use: Yes Substance Use Type: Alcohol, Marijuana, Tranquilizers Hx Substance Use Treatment: Yes (Last detox [facility] Aug 2018) - Substances Abused Alcohol Route: Oral Frequency: Daily Amount used: 3 pints vodka Age of first use: 13 Date of Last Use: 01/06/19 Alprazolam (Xanax) Route: Oral Frequency: Daily Amount used: 6mg Age of first use: 46 Date of Last Use: 01/04/19 Marijuana/Hashish Route: Smoking Frequency: Daily Amount used: 2 grams Age of first use: 14 Date of Last Use: 01/06/19 Family Disease History - Family Disease History Family Disease History: Diabetes: Father (HTN-ALIVE), Mother (HTN-ALIVE), Other : Father, Mother Admission Physical Exam [facility] - Vital Signs Vital Signs: Vital Signs - 24 hr 01/06/19 12:47 Temperature 99.2 F Pulse Rate 105 H Respiratory 20 Rate Blood Pressure 151/106 H - Physical General Appearance: Yes: Disheveled, Mild Distress, Tremorous, Sweating, Anxious HEENTM: Yes: EOMI, Hearing grossly Normal, Normal ENT Inspection, Normocephalic , Normal Voice, JUAN, Pharynx Normal, Tm's normal, Nasal Congestion Respiratory: Yes: Chest Non-Tender, Lungs Clear, Normal Breath Sounds, No Respiratory Distress, No Accessory Muscle Use Neck: Yes: Within Normal Limits Breast: Yes: Breast Exam Deferred Cardiology: Yes: Regular Rhythm, Regular Rate Abdominal: Yes: Normal Bowel Sounds, Non Tender, Flat, Soft Genitourinary: Yes: Within Normal Limits Back: Yes: Normal Inspection Musculoskeletal: Yes: full range of Motion, Gait Steady, Pelvis Stable Extremities: Yes: Normal Capillary Refill, Normal Inspection, Normal Range of Motion, Non-Tender Neurological: Yes: Within Normal Limits Integumentary: Yes: Normal Color, Warm, Diaphoresis Lymphatic: Yes: Within Normal Limits - Addiitonal Findings: Patient to follow up with urology for hydrocele upon compeltion of detox tx. - Diagnostic (1) Alcohol dependence with uncomplicated withdrawal Current Visit: Yes Status: Acute (2) Cannabis dependence Current Visit: Yes Status: Acute (3) Essential (primary) hypertension Current Visit: Yes Status: Acute (4) Hypercholesterolemia Current Visit: Yes Status: Acute (5) Uncomplicated sedative, hypnotic or anxiolytic withdrawal Current Visit: Yes Status: Acute (6) Gout Current Visit: Yes Status: Chronic Cleared for Admission [facility] - Detox or Rehab [facility] Level of Care: Medically Managed Detox Regimen/Protocol: Valium S Breath Alcohol Content Breath Alcohol Content: 0.045 Urine Drug Screen - Results Drug Screen Negative: No Urine Drug Screen Results: THC-Marijuana, BZO-Benzodiazepines
[2019-01-06] MEDS ORDERED: IBUPROFEN 400 MG TABLET (FP) PO PRN (17:08)
[2019-01-06] MEDS ORDERED: P-EPHED 60MG/TRIPROLIDI 2.5MG TABLET PO PRN (17:08)
[2019-01-06] MEDS ORDERED: MAGNESIUM HYDROX 2400MG/30ML ORAL SUSPENSION 30 ML CUP PO PRN (17:08)
[2019-01-06] MEDS ORDERED: MENTHOL/PHENOL 1 EACH UD MM PRN (17:08)
[2019-01-06] MEDS ORDERED: ACETAMINOPHEN 325 MG TABLET (FP) PO PRN (17:08)
[2019-01-06] MEDS ORDERED: NICOTINE POLACRILEX 2 MG GUM BC PRN (17:08)
[2019-01-06] MEDS ORDERED: LOPERAMIDE HCL 2 MG CAPSULE PO PRN (17:08)
[2019-01-06] MEDS ORDERED: hydrOXYzine PAMOATE 25 MG CAPSULE (FP) PO PRN (17:08)
[2019-01-06] MEDS ORDERED: MAGNESIUM CITRATE 300 ML BOTTLE PO PRN (17:08)
[2019-01-06] MEDS ORDERED: MAG HYDROX/AL HYDROX/SIMETH 30 ML UNIT-DOSE CUP PO PRN (17:08)
[2019-01-06] MEDS ORDERED: guaiFENesin/D-METHORPHAN HB 10 ML UNIT-DOSE CUPS PO PRN (17:08)
[2019-01-06] MEDS ORDERED: diazePAM 5 MG TABLET PO ONE (18:45)
[2019-01-06] MEDS ORDERED: MELATONIN 5 MG TABLETS PO PRN (22:00)
[2019-01-06] MEDS: IBUPROFEN 600 MG TABLET (FP) PO PRN (22:17)
[2019-01-06] MEDS: diazePAM 5 MG TABLET PO SCH (22:17)
[2019-01-06] MEDS: THIAMINE HCL 100 MG TABLET (FP) PO SCH (22:17)
[2019-01-07] MEDS: diazePAM 5 MG TABLET PO SCH ×3 (06:04→22:52)
--- NOTE | 2019-01-07 07:38 | CONSULT ---
[facility] Psychiatric Consult - Data Date of interview: 01/07/19 Admission source: [facility] Identifying data: This is a 48 years old male, with a history of alcohol dependence since 2015, , THC, Cannabis, and Xanax dependence/abuse is here reporting withdrawal symptoms and seeking detox. As per chart was hospitalized for ETOH intoxication two weeks ago at [facility]. Substance Abuse History: Smoking history: Current every day smoker. Have you smoked in the past 12 months: Yes. Aproximately how many cigarettes per day: 5. If you are a former smoker, when did you quit?: 2010. Hx Chewing Tobacco Use: No. Initiated information on smoking cessation: Yes. 'Breaking Loose' booklet given: 01/06/19. - Substance & Tx. History. Hx Alcohol Use: Yes. Hx Substance Use: Yes. Substance Use Type: Alcohol, Marijuana, Tranquilizers. Hx Substance Use Treatment: Yes (Last detox [facility] Aug 2018). - Substances Abused. Alcohol. Route: Oral. Frequency: Daily. Amount used: 3 pints vodka. Age of first use: 13. Date of Last Use: 01/06/19. Alprazolam (Xanax). Route: Oral. Frequency: Daily. Amount used: 6mg. Age of first use: 46. Date of Last Use: 01/04/19. Marijuana/Hashish. Route: Smoking. Frequency: Daily. Amount used: 2 grams. Age of first use: 14. 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 Patient refused to go with provider to posychiatric office and refused to be evaluated. Cosider reevaluation and possible mood stabilizers usage if needed. Rec: Continue Rermeron 15mg po qhs for Insomnia, will monitor progress and observation. Physical/Sexual Abuse/Trauma History: Unknown Additional Comment: Remeron 15mg po qhs Mental Status Exam - Mental Status Exam Alert and Oriented to: Person Cognitive Function: Fair Patient Appearance: Unkempt Mood: Angry, Hostile, Anxious, Irritable Affect: Labile Patient Behavior: Uncooperative, Impulsive, Talkative, Resitive to Care Speech Pattern: Excessive Voice Loudness: Mildly Loud Thought Process: Goal Oriented Thought Disorder: Being Controlled Hallucinations: Denies Suicidal Ideation: Denies Homicidal Ideation: Denies Insight/Judgement: Fair Sleep: Difficulty falling asleep Appetite: Fair Muscle strength/Tone: Normal Gait/Station: Normal Additional Comments: Remeron 15mg po qhs Psychiatric Findings - Problem List ([place] 1, 2,3) (1) Alcohol dependence with uncomplicated withdrawal Current Visit: Yes Status: Acute (2) Cannabis dependence Current Visit: Yes Status: Acute (3) Essential (primary) hypertension Current Visit: Yes Status: Acute (4) Hypercholesterolemia Current Visit: Yes Status: Acute (5) Uncomplicated sedative, hypnotic or anxiolytic withdrawal Current Visit: Yes Status: Acute (6) Gout Current Visit: Yes Status: Chronic (7) Alcohol dependence Current Visit: No Status: Acute (8) Alcohol related seizure Current Visit: No Status: Acute (9) Cannabis abuse Current Visit: No Status: Acute (10) Cocaine abuse Current Visit: No Status: Acute (11) Cocaine dependence Current Visit: No Status: Acute Qualifiers: Substance use status: uncomplicated Qualified Code(s): F14.20 - Cocaine dependence, uncomplicated (12) Syncope Current Visit: No Status: Acute Qualifiers: Syncope type: unspecified Qualified Code(s): R55 - Syncope and collapse (13) Benzodiazepine dependence Current Visit: No Status: Chronic (14) GERD (gastroesophageal reflux disease) Current Visit: No Status: Chronic Qualifiers: Esophagitis presence: esophagitis presence not specified Qualified Code(s) : K21.9 - Gastro-esophageal reflux disease without esophagitis (15) History of thymoma Current Visit: No Status: Chronic (16) Drug-induced mood disorder Current Visit: No Status: Suspected - Initial Treatment Plan Initial Treatment Plan: Cosider reevaluation and possible mood stabilizers usage if needed. Rec: Continue Rermeron 15mg po qhs for Insomnia, will monitor progress and observation.
[2019-01-07 10:10] LABS: HEMATOCRIT 46.2 % (35.4-49); HEMOGLOBIN 15.9 GM/dL (11.7-16.9); MCH 32.1 pg (25.7-33.7); MCHC 34.4 g/dl (32.0-35.9); MEAN CELL VOLUME 93.3 fl (80-96); MEAN PLT VOLUME 7.6 fl (7.5-11.1); PLATELET COUNT 344 K/MM3 (134-434); RBC 4.95 M/mm3 (4.00-5.60); WHITE BLOOD COUNT 4.9 K/mm3 (4.0-10.0)
[2019-01-07] MEDS: PRENATAL VITAMINS W/ FOLIC ACID TABLET (FP) PO SCH (10:10)
[2019-01-07] MEDS: amLODIPine BESYLATE 10 MG TABLET (FP) PO SCH (10:10)
[2019-01-07] MEDS: diazePAM 5 MG TABLET PO PRN (10:11)
[2019-01-07] MEDS: IBUPROFEN 600 MG TABLET (FP) PO PRN (10:11)
[2019-01-07] MEDS: NICOTINE 14 MG/24 HOURS TOPICAL PATCH TD SCH (10:11)
[2019-01-07 11:36] LABS: ALBUMIN 4.4 g/dl (3.4-5.0); ALK PHOS 84 U/L (45-117); ANION GAP 9 MMOL/L (8-16); BILIRUBIN,TOTAL 1.3 mg/dL (0.2-1); BLOOD UREA NITROGEN 11 mg/dL (7-18); CALCIUM 9.5 mg/dL (8.5-10.1); CHLORIDE 100 mmol/L (98-107); CO2 29 mmol/L (21-32); CREATININE 1.2 mg/dL (0.55-1.3); GLUCOSE,RANDOM 70 mg/dL (74-106); POTASSIUM 4.1 mmol/L (3.5-5.1); SGOT/AST 32 U/L (15-37); SGPT/ALT 35 U/L (13-61); SODIUM 138 mmol/L (136-145); TOT PROT 8.1 g/dl (6.4-8.2)
[2019-01-07] MEDS ORDERED: CYCLOBENZAPRINE HCL 10 MG TABLET (FP) PO PRN (13:44)
--- NOTE | 2019-01-07 16:18 | PN ---
[facility] CIWA - CIWA Score Nausea/Vomitin-No Nausea/No Vomiting Muscle Tremors: None Anxiety: 3 Agitation: 0-Normal Activity Paroxysmal Sweats: 3 Orientation: 0-Oriented Tacttile Disturbances: 3-Moderate Itch/Numb/Burn Auditory Disturbances: 0-None Visual Disturbances: 3-Moderate Sensitivity Headache: 0-None Present CIWA-Ar Total Score: 12 S Progress Note (SOAP) Subjective: Interrupted Sleep, Body Aches, Sweating. Objective: PATIENT A & O X 3, OBSERVED AMBULATING ON UNIT. IN NO ACUTE DISTRESS. 01/07/19 16:08 Vital Signs Temperature 98.1 F 01/07/19 12:48 Pulse Rate 67 01/07/19 12:48 Respiratory Rate 18 01/07/19 12:48 Blood Pressure 133/89 01/07/19 12:48 O2 Sat by Pulse Oximetry (%) Laboratory Tests 01/07/19 01/07/19 01/07/19 07:00 07:00 07:00 WBC 4.9 RBC 4.95 Hgb 15.9 Hct 46.2 MCV 93.3 MCH 32.1 MCHC 34.4 RDW 14.0 D Plt Count 344 MPV 7.6 Sodium 138 Potassium 4.1 Chloride 100 Carbon Dioxide 29 Anion Gap 9 BUN 11 Creatinine 1.2 Creat Clearance w eGFR > 60 Random Glucose 70 L Calcium 9.5 Total Bilirubin 1.3 H AST 32 ALT 35 Alkaline Phosphatase 84 Total Protein 8.1 Albumin 4.4 RPR Titer HIV 1&2 Antibody Screen Negative HIV P24 Antigen Negative 01/07/19 07:00 WBC RBC Hgb Hct MCV MCH MCHC RDW Plt Count MPV Sodium Potassium Chloride Carbon Dioxide Anion Gap BUN Creatinine Creat Clearance w eGFR Random Glucose Calcium Total Bilirubin AST ALT Alkaline Phosphatase Total Protein Albumin RPR Titer Nonreactive HIV 1&2 Antibody Screen HIV P24 Antigen LABS NOTED. Assessment: 01/07/19 16:09 WITHDRAWAL SYMPTOMS. Plan: CONTINUE DETOX. PRN FLEXERIL PO FOR BODY ACHES. PATIENT REPORTS HISTORT OF HYDROLCELE AND THAT HE FEELS THAT HIS TESTICULAR AREA IS PAINFUL AND "SWOLLEN." PATIENT DECLINED TO HAVE AFFECTED AREA EXAMINED BY EGG BREAKER AND HE REFUSED OFFER TO BE TAKEN VIA AMBULANCE TO ER FOR FURTHER MEDICAL EVALUATION. PATIENT REPORTS THIS TO BE A CHRONIC CONDITION AND THAT HE HAS A UROLOGIST WHOM HE HAS CONSULTED FOR IT IN THE PST,; HOWEVER, IT HAS BEEN A WHILE SINCE HE HAS SEEN THE UROLOGIST FOR FOLLOW-UP. AT THIS TIME, PATIENT ONLY REQUESTS TO BE PRESCRIBED MEDICATION FOR THE PAIN. PATIENT CURRENTLY PRESCRIBED PORN IBUPROFEN, 600 MG PO FOR PAIN. PATIENT REPORTS THAT TYLENOL HAS BEEN INEFFECTIVE FOR PAIN IN PAST. UNABLE TO INCREASE PRN DOSAGE OF IBUPROFEN AT THIS TIME DUE TO PATIENT'S HISTORY OF HTN. PATIENT ADVISED TO FOLLOW-UP WITH HIS UROLOGIST SOON POSSIBLE AFTER DISCHARGE FORM DETOX FOR FURTHER EVALUATION FOR HISTORY OF HYDROCELE. PATIENT VERBALIZED UNDERSTANDING OF RECOMMENDATIONS.
[2019-01-07] MEDS: MIRTAZAPINE 15 MG TABLET (FP) PO SCH (22:52)
[2019-01-07] MEDS: THIAMINE HCL 100 MG TABLET (FP) PO SCH (22:52)
[2019-01-08] MEDS: diazePAM 5 MG TABLET PO PRN (06:11)
--- NOTE | 2019-01-08 09:38 | PN ---
[facility] Progress Note Note: pt states he feels fine. minimal withdrawals note. Pt is asking for d/c tomorrow morning. Pt dose was decreased as per pt request. Pt will be d/c in am.
[2019-01-08] MEDS: PRENATAL VITAMINS W/ FOLIC ACID TABLET (FP) PO SCH (10:22)
[2019-01-08] MEDS: NICOTINE 14 MG/24 HOURS TOPICAL PATCH TD SCH (10:22)
[2019-01-08] MEDS: amLODIPine BESYLATE 10 MG TABLET (FP) PO SCH (10:22)
[2019-01-08] MEDS: diazePAM 5 MG TABLET PO SCH ×2 (10:23→23:16)
[2019-01-08] MEDS: IBUPROFEN 600 MG TABLET (FP) PO PRN (10:25)
--- NOTE | 2019-01-08 14:42 | PN ---
[facility] CIWA - CIWA Score Nausea/Vomitin-No Nausea/No Vomiting Muscle Tremors: 2 Anxiety: 3 Agitation: 0-Normal Activity Paroxysmal Sweats: 3 Orientation: 0-Oriented Tacttile Disturbances: 1-Very Mild Itch/Numbness Auditory Disturbances: 0-None Visual Disturbances: 0-None Headache: 0-None Present CIWA-Ar Total Score: 9 [facility] Progress Note (SOAP) Subjective: Sweating, Interrupted Sleep. Objective: PATIENT A & O X 3, OBSERVED AMBULATING ON UNIT. IN NO ACUTE DISTRESS. 01/08/19 14:39 Vital Signs Temperature 97.9 F 01/08/19 13:50 Pulse Rate 81 01/08/19 13:50 Respiratory Rate 18 01/08/19 13:50 Blood Pressure 154/104 H 01/08/19 13:50 O2 Sat by Pulse Oximetry (%) Laboratory Tests 01/07/19 01/07/19 01/07/19 07:00 07:00 07:00 WBC 4.9 RBC 4.95 Hgb 15.9 Hct 46.2 MCV 93.3 MCH 32.1 MCHC 34.4 RDW 14.0 D Plt Count 344 MPV 7.6 Sodium 138 Potassium 4.1 Chloride 100 Carbon Dioxide 29 Anion Gap 9 BUN 11 Creatinine 1.2 Creat Clearance w eGFR > 60 Random Glucose 70 L Calcium 9.5 Total Bilirubin 1.3 H AST 32 ALT 35 Alkaline Phosphatase 84 Total Protein 8.1 Albumin 4.4 RPR Titer HIV 1&2 Antibody Screen Negative HIV P24 Antigen Negative 01/07/19 07:00 WBC RBC Hgb Hct MCV MCH MCHC RDW Plt Count MPV Sodium Potassium Chloride Carbon Dioxide Anion Gap BUN Creatinine Creat Clearance w eGFR Random Glucose Calcium Total Bilirubin AST ALT Alkaline Phosphatase Total Protein Albumin RPR Titer Nonreactive HIV 1&2 Antibody Screen HIV P24 Antigen LABS NOTED. Assessment: 01/08/19 14:40 WITHDRAWAL SYMPTOMS. Plan: CONTINUE DETOX. PATIENT REPORTS THAT CURRENT WITHDRAWAL SYMPTOMS ARE MINIMAL IN SEVERITY AND THAT HE IS TOLERATING CURRENT WITHDRAWAL / DETOX SYMPTOMS WELL. AT PATIENT'S REQUEST, CURRENT DETOX MEDICATION REGIMEN MODIFIED SO THAT PATIENT MAY BE DISCHARGED TOMORROW, 01/09/2019. PATIENT DECLINED OFFER OF MEDICATION PRESCRIPTION FOR HOME MEDICATION AT TIME OF DISCHARGE FROM DETOX, NOTING THAT HE CURRENTLY HAS ADEQUATE SUPPLIES OF ALL PRESCRIBED HOME MEDICATIONS AT HOME.
[2019-01-08] MEDS: THIAMINE HCL 100 MG TABLET (FP) PO SCH (23:16)
[2019-01-08] MEDS: MIRTAZAPINE 15 MG TABLET (FP) PO SCH (23:16)
[2019-01-09 06:27] VITALS: BP 130/77; PULSE 82; TEMP 97.9
--- NOTE | 2019-01-09 08:50 | DS ---
[facility] Detox Discharge Summary Admission Date: 01/06/19 Discharge Date: 01/09/19 - History Present History: Alcohol Dependence, Cannabis Dependence, Cocaine Dependence, Sedative Dependence - Physical Exam Results Vital Signs: Vital Signs Temperature 97.9 F 01/09/19 06:26 Pulse Rate 82 01/09/19 06:26 Respiratory Rate 18 01/09/19 06:26 Blood Pressure 130/77 01/09/19 06:26 O2 Sat by Pulse Oximetry (%) - Treatment Hospital Course: Detox Protocol Followed, Detoxed Safely, Responded well, Discharged Condition Good, Rehab Referral Accepted - Medication Discharge Medications: Ambulatory Orders Amlodipine Besylate [Norvasc -] 10 mg PO DAILY 01/06/19 Mirtazapine [Remeron -] 15 mg PO HS #30 tablet 01/07/19 - Diagnosis (1) Alcohol dependence with uncomplicated withdrawal Current Visit: Yes Status: Chronic (2) Cannabis dependence Current Visit: Yes Status: Chronic (3) Essential (primary) hypertension Current Visit: Yes Status: Acute (4) Hydrocele Current Visit: No Status: Chronic Qualifiers: Hydrocele type: unspecified Qualified Code(s): N43.3 - Hydrocele, unspecified (5) Hypercholesterolemia Current Visit: Yes Status: Chronic (6) Uncomplicated sedative, hypnotic or anxiolytic withdrawal Current Visit: Yes Status: Chronic (7) Gout Current Visit: Yes Status: Chronic Qualifiers: Gout site: unspecified site Chronicity: chronic (8) Alcohol related seizure Current Visit: No Status: Acute (9) Cannabis dependence Current Visit: Yes Status: Chronic (10) Cocaine dependence Current Visit: Yes Status: Chronic Qualifiers: Substance use status: uncomplicated Qualified Code(s): F14.20 - Cocaine dependence, uncomplicated (11) Depression Current Visit: No Status: Acute (12) Insomnia Current Visit: No Status: Acute (13) Syncope Current Visit: No Status: Acute Qualifiers: Syncope type: unspecified Qualified Code(s): R55 - Syncope and collapse (14) GERD (gastroesophageal reflux disease) Current Visit: No Status: Chronic Qualifiers: Esophagitis presence: esophagitis presence not specified Qualified Code(s) : K21.9 - Gastro-esophageal reflux disease without esophagitis (15) History of thymoma Current Visit: No Status: Chronic (16) Non-allergic rhinitis Current Visit: No Status: Chronic (17) Bipolar affective disorder, mixed, severe, with psychotic behavior Current Visit: No Status: Suspected (18) Drug-induced mood disorder Current Visit: No Status: Suspected - AMA Did Patient Leave Against Medical Advice: No (referred to [facility]en [facility] or [facility] in patient rehab)
[2019-01-10] MEDS ORDERED: diazePAM 5 MG TABLET PO SCH (10:00)
== END 2019-01-09 09:17 | disposition home or self-care (01) | DRG 774 ==
LOC: YASAS 11:37 → Y6N 18:06
PROVIDERS: ADMIT Surgery; ATTEND Surgery
PROC: HZ2ZZZZ Detoxification Services for Substance Abuse Treatment (ICD-10-PCS; principal; 2019-01-06)
DX: F10.230 Alcohol dependence with withdrawal, uncomplicated (principal); F14.20 Cocaine dependence, uncomplicated; F12.20 Cannabis dependence, uncomplicated; F17.210 Nicotine dependence, cigarettes, uncomplicated; F32.9 Major depressive disorder, single episode, unspecified; F19.24 Other psychoactive substance dependence with psychoactive substance-induced mood disorder; F31.64 Bipolar disorder, current episode mixed, severe, with psychotic features; I10 Essential (primary) hypertension; N43.3 Hydrocele, unspecified; E78.5 Hyperlipidemia, unspecified; G47.00 Insomnia, unspecified; K21.9 Gastro-esophageal reflux disease without esophagitis; J31.0 Chronic rhinitis; Z86.69 Personal history of other diseases of the nervous system and sense organs; Z91.013 Allergy to seafood; Z88.8 Allergy status to other drugs, medicaments and biological substances
CPT/HCPCS: 36415; 80053; 85027; 86593; 87389

== ENCOUNTER 2021-10-20 15:07 | Inpatient (IN) | payer OTHER ==
[2021-10-20 18:10] VITALS: BMI 23.3
[2021-10-20] MEDS ORDERED: MENTHOL/PHENOL 1 EACH UD MM PRN (18:45)
[2021-10-20] MEDS ORDERED: MAGNESIUM HYDROX 2400MG/30ML ORAL SUSPENSION 30 ML CUP PO PRN (18:45)
[2021-10-20] MEDS ORDERED: METHOCARBAMOL 500 MG TABLET PO PRN (18:45)
[2021-10-20] MEDS ORDERED: ACETAMINOPHEN 325 MG TABLET (FP) PO PRN ×2 (18:45)
[2021-10-20] MEDS ORDERED: IBUPROFEN 400 MG TABLET (FP) PO PRN (18:45)
[2021-10-20] MEDS ORDERED: BISMUTH SUBSALICYLATE 524 MG/30 ML PO PRN (18:45)
[2021-10-20] MEDS ORDERED: MAG HYDROX/AL HYDROX/SIMETH 30 ML UNIT-DOSE CUP PO PRN (18:45)
[2021-10-20] MEDS ORDERED: ONDANSETRON *ODT* 4 MG TABLET SL PRN (18:45)
[2021-10-20] MEDS ORDERED: NICOTINE POLACRILEX 2 MG GUM BUC PRN (18:45)
[2021-10-20] MEDS ORDERED: MAGNESIUM CITRATE 300 ML BOTTLE PO PRN (18:45)
[2021-10-20] MEDS ORDERED: diazePAM 5 MG TABLET PO PRN (18:50)
[2021-10-20] MEDS: MELATONIN 5 MG TABLETS PO SCH (22:53)
[2021-10-20] MEDS: diazePAM 5 MG TABLET PO SCH (22:53)
[2021-10-20] MEDS: THIAMINE HCL 100 MG TABLET (FP) PO SCH (22:53)
[2021-10-21] MEDS: diazePAM 5 MG TABLET PO SCH ×4 (06:08→23:13)
[2021-10-21] MEDS: PRENATAL VITAMINS W/ FOLIC ACID TABLET (FP) PO SCH (10:45)
[2021-10-21] MEDS ORDERED: FLU VACC QS2021-22(6MOS UP)/PF 60 MCG/0.5 ML SYRINGE IM ONE (13:00)
[2021-10-21] MEDS: MELATONIN 5 MG TABLETS PO SCH (23:13)
[2021-10-21] MEDS: THIAMINE HCL 100 MG TABLET (FP) PO SCH (23:14)
[2021-10-22] MEDS: diazePAM 5 MG TABLET PO SCH ×3 (06:49→22:53)
[2021-10-22] MEDS: PRENATAL VITAMINS W/ FOLIC ACID TABLET (FP) PO SCH (10:46)
[2021-10-22] MEDS ORDERED: amLODIPine BESYLATE 10 MG TABLET (FP) PO SCH (16:30)
[2021-10-22] MEDS ORDERED: LISINOPRIL 5 MG TABLET PO SCH (16:30)
[2021-10-22] MEDS: MELATONIN 5 MG TABLETS PO SCH (22:53)
[2021-10-22] MEDS: THIAMINE HCL 100 MG TABLET (FP) PO SCH (22:53)
[2021-10-23] MEDS ORDERED: diazePAM 5 MG TABLET PO SCH (06:00)
[2021-10-23 09:10] VITALS: BP 157/98; PULSE 96; TEMP 96.8
[2021-10-24] MEDS ORDERED: diazePAM 5 MG TABLET PO ONE (06:00)
== END 2021-10-23 09:52 | disposition home or self-care (01) | DRG 774 ==
LOC: YASAS 15:07 → Y3N 19:42
PROVIDERS: ADMIT Allergy & Immunology; ATTEND Allergy & Immunology
PROC: HZ2ZZZZ Detoxification Services for Substance Abuse Treatment (ICD-10-PCS; principal; 2021-10-20)
DX: F10.230 Alcohol dependence with withdrawal, uncomplicated (principal); F14.20 Cocaine dependence, uncomplicated; F15.20 Other stimulant dependence, uncomplicated; F12.20 Cannabis dependence, uncomplicated; F17.210 Nicotine dependence, cigarettes, uncomplicated; F31.64 Bipolar disorder, current episode mixed, severe, with psychotic features; F41.9 Anxiety disorder, unspecified; G47.00 Insomnia, unspecified; E78.5 Hyperlipidemia, unspecified; I10 Essential (primary) hypertension; K21.9 Gastro-esophageal reflux disease without esophagitis; M10.9 Gout, unspecified; Z86.69 Personal history of other diseases of the nervous system and sense organs; Z88.8 Allergy status to other drugs, medicaments and biological substances; Z91.013 Allergy to seafood
CPT/HCPCS: 93005; 93010; C9803; U0003; U0005

== ENCOUNTER 2022-01-27 13:58 | Inpatient (IN) | payer OTHER ==
[2022-01-27 14:11] VITALS: BMI 24.4
[2022-01-27] MEDS ORDERED: PANTOPRAZOLE SODIUM 40 MG VIAL IVPB ONE (14:32)
[2022-01-27] MEDS ORDERED: FAMOTIDINE 20 MG/50 ML IVPB 20 MG/50 ML MG IVPB ONE ×2 (14:32→15:48)
[2022-01-27] MEDS ORDERED: SODIUM CHLORIDE 0.9% 500 ML INFUS.BAG IV ONE (14:33)
[2022-01-27] MEDS ORDERED: ONDANSETRON 4 MG/2 ML VIAL IVPUSH ONE (15:39)
[2022-01-27] MEDS ORDERED: PANTOPRAZOLE SODIUM 40 MG VIAL ONE (15:48)
[2022-01-27] MEDS ORDERED: ONDANSETRON 4 MG/2 ML VIAL ONE (15:48)
[2022-01-27 16:13] LABS: BASO % 0.1 % (0-2.0); HEMATOCRIT 35.7 % (35.4-49); HEMOGLOBIN 12.3 GM/dL (11.7-16.9); LYMPH % 11.1 % (8-40); MCH 31.1 pg (25.7-33.7); MCHC 34.4 g/dl (32.0-35.9); MEAN CELL VOLUME 90.3 fl (80-96); MEAN PLT VOLUME 6.5 fl (7.5-11.1); MONO % 5.7 % (3.8-10.2); NEUT % 83.1 % (42.8-82.8); PLATELET COUNT 329 10^3/uL (134-434); RBC 3.96 M/mm3 (4.00-5.60); RDW 15.4 % (11.9-15.9)
[2022-01-27 16:21] LABS: INR 0.94 (0.83-1.09); PROTHROMBIN TIME (PATIENT) 10.8 SEC (9.7-13.0)
[2022-01-27 16:23] LABS: ACTIVATED PTT 30.6 SECONDS (25.2-36.5)
[2022-01-27 16:32] LABS: CHLORIDE 95 mmol/L (98-107); SODIUM 134 mmol/L (136-145)
[2022-01-27 16:35] LABS: ALBUMIN 4.1 g/dl (3.4-5.0); ANION GAP 5 MMOL/L (8-16); BLOOD UREA NITROGEN 18.8 mg/dL (7-18); CALCIUM 9.3 mg/dL (8.5-10.1); CO2 35 mmol/L (21-32); GLUCOSE,RANDOM 78 mg/dL (74-106)
[2022-01-27 16:36] LABS: LIPASE 235 U/L (73-393)
[2022-01-27 16:38] LABS: CREATININE 0.9 mg/dL (0.55-1.3); SGOT/AST 44 U/L (15-37); SGPT/ALT 42 U/L (13-61)
[2022-01-27 16:40] LABS: BILIRUBIN,TOTAL 0.8 mg/dL (0.2-1); TOT PROT 7.5 g/dl (6.4-8.2)
[2022-01-27 16:41] LABS: ALK PHOS 80 U/L (45-117)
[2022-01-27] MEDS ORDERED: ONDANSETRON 4 MG/2 ML VIAL IVPUSH PRN (16:47)
[2022-01-27 17:04] LABS: MAGNESIUM 2.1 mg/dL (1.8-2.4)
[2022-01-27 20:50] LABS: PHOSPHOROUS 3.5 mg/dL (2.5-4.9)
[2022-01-28] MEDS: GABAPENTIN 300 MG CAPSULE PO SCH ×4 (01:35→21:03)
[2022-01-28] MEDS: ATORVASTATIN CA 40 MG TABLET (FP) PO SCH ×2 (01:35→21:03)
[2022-01-28] MEDS ORDERED: PANTOPRAZOLE SODIUM 40 MG VIAL ONE (01:37)
[2022-01-28] MEDS ORDERED: THIAMINE HCL 200 MG/2 ML VIAL ONE (01:37)
[2022-01-28] MEDS: THIAMINE HCL 200 MG/2 ML VIAL IVPB SCH ×2 (01:40→09:24)
[2022-01-28] MEDS: PANTOPRAZOLE SODIUM 40 MG VIAL IVPUSH SCH ×3 (01:40→21:03)
[2022-01-28] MEDS: D5-1/2NS+10 MEQ KCL - 10 MEQ/1,000 ML INFUS.BAG IV SCH ×3 (01:47→22:43)
[2022-01-28 03:12] LABS: URINE BARBITURATES NEGATIVE (NEGATIVE)
[2022-01-28 03:13] LABS: METHADONE, UR NEGATIVE (NEGATIVE); PHENCYCLIDINE,URINE NEGATIVE (NEGATIVE); URINE AMPHETAMINES NEGATIVE (NEGATIVE)
[2022-01-28 03:14] LABS: OPIATES, URI NEGATIVE (NEGATIVE)
[2022-01-28 03:31] LABS: COCAINE, UR POSITIVE (NEGATIVE); URINE BENZODIAZEPINES POSITIVE (NEGATIVE)
[2022-01-28] MEDS: diazePAM 5 MG TABLET PO SCH ×3 (08:55→21:03)
[2022-01-28 09:08] LABS: BASO % 0.6 % (0-2.0); EOS % 0.3 % (0-4.5); HEMATOCRIT 35.2 % (35.4-49); HEMOGLOBIN 11.9 GM/dL (11.7-16.9); LYMPH % 25.6 % (8-40); MCHC 33.8 g/dl (32.0-35.9); MEAN CELL VOLUME 91.7 fl (80-96); MEAN PLT VOLUME 6.4 fl (7.5-11.1); MONO % 8.6 % (3.8-10.2); NEUT % 64.9 % (42.8-82.8); PLATELET COUNT 277 10^3/uL (134-434); RBC 3.84 M/mm3 (4.00-5.60); RDW 15.8 % (11.9-15.9); WHITE BLOOD COUNT 5.1 K/mm3 (4.0-10.0)
[2022-01-28] MEDS: LISINOPRIL 10 MG TABLET PO SCH (09:23)
[2022-01-28] MEDS: FOLIC ACID 1 MG TABLET (FP) PO SCH (09:23)
[2022-01-28] MEDS: amLODIPine BESYLATE 10 MG TABLET (FP) PO SCH (09:23)
[2022-01-28] MEDS: BUPRENORPHINE/NALOXONE 2 MG/0.5 MG FILM PACKET SL SCH ×2 (09:24→21:04)
[2022-01-28 09:32] LABS: ALBUMIN 3.6 g/dl (3.4-5.0); BLOOD UREA NITROGEN 16.8 mg/dL (7-18); CALCIUM 8.9 mg/dL (8.5-10.1); MAGNESIUM 2.2 mg/dL (1.8-2.4)
[2022-01-28 09:34] LABS: CREATININE 1.1 mg/dL (0.55-1.3)
[2022-01-28 09:36] LABS: BILIRUBIN,TOTAL 1.1 mg/dL (0.2-1); TOT PROT 6.4 g/dl (6.4-8.2)
[2022-01-28] MEDS ORDERED: PANTOPRAZOLE SODIUM 40 MG VIAL IVPUSH SCH (10:00)
[2022-01-28] MEDS: LORazepam 2 MG/ML SDV VIAL IVPB PRN ×2 (11:52→21:03)
[2022-01-28] MEDS: VITAMIN B COMPLEX W/C COMBO TABLET (FP) PO SCH (19:20)
[2022-01-29] MEDS: diazePAM 5 MG TABLET PO SCH ×2 (05:23→13:24)
[2022-01-29] MEDS: GABAPENTIN 300 MG CAPSULE PO SCH ×2 (05:24→13:24)
[2022-01-29] MEDS: FOLIC ACID 1 MG TABLET (FP) PO SCH (10:04)
[2022-01-29] MEDS: LISINOPRIL 10 MG TABLET PO SCH (10:04)
[2022-01-29] MEDS: amLODIPine BESYLATE 10 MG TABLET (FP) PO SCH (10:04)
[2022-01-29] MEDS: VITAMIN B COMPLEX W/C COMBO TABLET (FP) PO SCH (10:05)
[2022-01-29] MEDS: PANTOPRAZOLE SODIUM 40 MG VIAL IVPUSH SCH (10:05)
[2022-01-29] MEDS: THIAMINE HCL 200 MG/2 ML VIAL IVPB SCH (10:05)
[2022-01-29] MEDS: BUPRENORPHINE/NALOXONE 2 MG/0.5 MG FILM PACKET SL SCH (10:05)
[2022-01-29] MEDS: LORazepam 2 MG/ML SDV VIAL IVPB PRN (10:06)
[2022-01-29] MEDS ORDERED: MIDAZOLAM HCL 2 MG/2 ML SINGLE DOSE VIAL ONE (11:46)
[2022-01-29 13:01] VITALS: TEMP 98
[2022-01-29 13:22] VITALS: BP 120/68; PULSE 79
[2022-01-30] MEDS ORDERED: PANTOPRAZOLE 40 MG TABLET PO SCH (10:00)
[2022-01-30] MEDS ORDERED: diazePAM 5 MG TABLET PO SCH (10:00)
[2022-01-31] MEDS ORDERED: diazePAM 5 MG TABLET PO ONE (10:00)
== END 2022-01-29 13:51 | disposition left against medical advice (07) | DRG 243 ==
LOC: JER 13:58 → JERBED 16:54 → J8W 01-28 02:26
PROVIDERS: ADMIT Internal Medicine
PROC: HZ2ZZZZ Detoxification Services for Substance Abuse Treatment (ICD-10-PCS; principal; 2022-01-27)
PROC: 0DB58ZX Excision of Esophagus, Via Natural or Artificial Opening Endoscopic, Diagnostic (ICD-10-PCS; 2022-01-29)
PROC: 0DB68ZX Excision of Stomach, Via Natural or Artificial Opening Endoscopic, Diagnostic (ICD-10-PCS; 2022-01-29)
DX: K21.00 Gastro-esophageal reflux disease with esophagitis, without bleeding (principal); I10 Essential (primary) hypertension; E78.5 Hyperlipidemia, unspecified; F10.239 Alcohol dependence with withdrawal, unspecified; F11.23 Opioid dependence with withdrawal; F12.20 Cannabis dependence, uncomplicated; F17.210 Nicotine dependence, cigarettes, uncomplicated; K29.70 Gastritis, unspecified, without bleeding
CPT/HCPCS: 36415; 71046-TC-FY; 74177-TC; 76937; 80053; 80307; 83690; 83735; 84100; 85025; 85610; 85730; 86850; 86900; 86901; 88305-TC; 93005; 93010; 99285-25; C9803; Q9967; U0003; U0005

== ENCOUNTER 2022-02-08 14:27 | Inpatient (IN) | payer OTHER ==
[2022-02-08 15:21] VITALS: BMI 24.3
[2022-02-08] MEDS ORDERED: MAG HYDROX/AL HYDROX/SIMETH 30 ML UNIT-DOSE CUP PO PRN (15:53)
[2022-02-08] MEDS ORDERED: IBUPROFEN 400 MG TABLET (FP) PO PRN (15:53)
[2022-02-08] MEDS ORDERED: MENTHOL/PHENOL 1 EACH UD MM PRN (15:53)
[2022-02-08] MEDS ORDERED: LOPERAMIDE HCL 2 MG CAPSULE PO PRN (15:53)
[2022-02-08] MEDS ORDERED: MAGNESIUM CITRATE 300 ML BOTTLE PO PRN (15:53)
[2022-02-08] MEDS ORDERED: ONDANSETRON *ODT* 4 MG TABLET SL PRN (15:53)
[2022-02-08] MEDS ORDERED: METHOCARBAMOL 500 MG TABLET PO PRN (15:53)
[2022-02-08] MEDS ORDERED: ACETAMINOPHEN 325 MG TABLET (FP) PO PRN ×2 (15:53)
[2022-02-08] MEDS ORDERED: BISMUTH SUBSALICYLATE 524 MG/30 ML PO PRN (15:53)
[2022-02-08] MEDS ORDERED: NICOTINE 10 MG CARTRIDGE (INHALER) IH PRN (15:53)
[2022-02-08] MEDS ORDERED: MAGNESIUM HYDROX 2400MG/30ML ORAL SUSPENSION 30 ML CUP PO PRN (15:53)
[2022-02-08] MEDS ORDERED: cloNIDine HCL 0.1 MG TABLET PO ONE (20:48)
[2022-02-08] MEDS: NICOTINE 14 MG/24 HOURS TOPICAL PATCH TD SCH (20:50)
[2022-02-08] MEDS: PRENATAL VITAMINS W/ FOLIC ACID TABLET (FP) PO SCH (20:50)
[2022-02-08] MEDS: LORazepam 2 MG TABLET PO SCH ×2 (20:50→22:55)
[2022-02-08] MEDS: hydrOXYzine PAMOATE 25 MG CAPSULE (FP) PO SCH ×2 (20:51→22:55)
[2022-02-08] MEDS: LORazepam 1 MG TABLET PO PRN (20:58)
[2022-02-08] MEDS: MELATONIN 5 MG TABLETS PO SCH (22:54)
[2022-02-08] MEDS: ATORVASTATIN CA 40 MG TABLET (FP) PO SCH (22:54)
[2022-02-08] MEDS: GABAPENTIN 300 MG CAPSULE PO SCH (22:55)
[2022-02-08] MEDS: THIAMINE HCL 100 MG TABLET (FP) PO SCH (22:55)
[2022-02-09] MEDS: GABAPENTIN 300 MG CAPSULE PO SCH ×3 (07:03→23:11)
[2022-02-09] MEDS: LORazepam 2 MG TABLET PO SCH ×4 (07:03→23:12)
[2022-02-09] MEDS: hydrOXYzine PAMOATE 25 MG CAPSULE (FP) PO SCH ×5 (07:03→23:11)
[2022-02-09] MEDS: NICOTINE 14 MG/24 HOURS TOPICAL PATCH TD SCH (10:35)
[2022-02-09] MEDS: amLODIPine BESYLATE 10 MG TABLET (FP) PO SCH (10:35)
[2022-02-09] MEDS: PRENATAL VITAMINS W/ FOLIC ACID TABLET (FP) PO SCH (10:35)
[2022-02-09] MEDS: LISINOPRIL 10 MG TABLET PO SCH (10:36)
[2022-02-09] MEDS ORDERED: cloNIDine HCL 0.1 MG TABLET PO PRN (11:18)
[2022-02-09 11:20] LABS: CALCIUM 8.9 mg/dL (8.5-10.1)
[2022-02-09 11:21] LABS: ALBUMIN 3.7 g/dl (3.4-5.0)
[2022-02-09 11:22] LABS: HEMATOCRIT 38.2 % (35.4-49); HEMOGLOBIN 12.8 GM/dL (11.7-16.9); MCH 31.6 pg (25.7-33.7); MCHC 33.6 g/dl (32.0-35.9); MEAN CELL VOLUME 94.1 fl (80-96); MEAN PLT VOLUME 7.2 fl (7.5-11.1); PLATELET COUNT 305 10^3/uL (134-434); RBC 4.06 M/mm3 (4.00-5.60); RDW 15.4 % (11.9-15.9); WHITE BLOOD COUNT 4.8 K/mm3 (4.0-10.0)
[2022-02-09 11:23] LABS: CREATININE 1.3 mg/dL (0.55-1.3)
[2022-02-09 11:25] LABS: BILIRUBIN,TOTAL 1.2 mg/dL (0.2-1); TOT PROT 6.8 g/dl (6.4-8.2)
[2022-02-09 12:07] LABS: HIV INTERPRETATION NEGATIVE (NEGATIVE)
[2022-02-09] MEDS: LORazepam 1 MG TABLET PO PRN (13:07)
[2022-02-09] MEDS: THIAMINE HCL 100 MG TABLET (FP) PO SCH (23:11)
[2022-02-09] MEDS: ATORVASTATIN CA 40 MG TABLET (FP) PO SCH (23:11)
[2022-02-09] MEDS: MELATONIN 5 MG TABLETS PO SCH (23:11)
[2022-02-10] MEDS: hydrOXYzine PAMOATE 25 MG CAPSULE (FP) PO SCH ×5 (06:31→22:24)
[2022-02-10] MEDS: GABAPENTIN 300 MG CAPSULE PO SCH ×3 (06:31→22:24)
[2022-02-10] MEDS: LORazepam 1 MG TABLET PO SCH ×4 (06:31→22:22)
[2022-02-10] MEDS: PRENATAL VITAMINS W/ FOLIC ACID TABLET (FP) PO SCH (11:45)
[2022-02-10] MEDS: amLODIPine BESYLATE 10 MG TABLET (FP) PO SCH (11:45)
[2022-02-10] MEDS: LISINOPRIL 10 MG TABLET PO SCH (11:45)
[2022-02-10] MEDS: NICOTINE 14 MG/24 HOURS TOPICAL PATCH TD SCH (11:45)
[2022-02-10 14:08] LABS: SARS-CoV-2 NAA Not Detected (Not Detected)
[2022-02-10] MEDS: LORazepam 1 MG TABLET PO PRN (14:40)
[2022-02-10] MEDS ORDERED: COLLOIDAL OATMEAL 1 BAR EACH TP PRN (15:06)
[2022-02-10] MEDS: ATORVASTATIN CA 40 MG TABLET (FP) PO SCH (22:23)
[2022-02-10] MEDS: THIAMINE HCL 100 MG TABLET (FP) PO SCH (22:24)
[2022-02-10] MEDS: MELATONIN 5 MG TABLETS PO SCH (22:42)
[2022-02-11] MEDS ORDERED: LORazepam 0.5 MG TABLET PO PRN
[2022-02-11] MEDS: GABAPENTIN 300 MG CAPSULE PO SCH ×3 (06:21→23:02)
[2022-02-11] MEDS: LORazepam 0.5 MG TABLET PO SCH ×4 (06:21→23:02)
[2022-02-11] MEDS: hydrOXYzine PAMOATE 25 MG CAPSULE (FP) PO SCH ×5 (06:21→23:02)
[2022-02-11] MEDS: LISINOPRIL 10 MG TABLET PO SCH (10:22)
[2022-02-11] MEDS: amLODIPine BESYLATE 10 MG TABLET (FP) PO SCH (10:22)
[2022-02-11] MEDS: PRENATAL VITAMINS W/ FOLIC ACID TABLET (FP) PO SCH (10:23)
[2022-02-11] MEDS: NICOTINE 14 MG/24 HOURS TOPICAL PATCH TD SCH (10:24)
[2022-02-11] MEDS: MELATONIN 5 MG TABLETS PO SCH (23:02)
[2022-02-11] MEDS: ATORVASTATIN CA 40 MG TABLET (FP) PO SCH (23:02)
[2022-02-11] MEDS: THIAMINE HCL 100 MG TABLET (FP) PO SCH (23:02)
[2022-02-12] MEDS ORDERED: LORazepam 0.5 MG TABLET PO ONE (05:00)
[2022-02-12] MEDS: hydrOXYzine PAMOATE 25 MG CAPSULE (FP) PO SCH (07:04)
[2022-02-12] MEDS: GABAPENTIN 300 MG CAPSULE PO SCH (07:04)
[2022-02-12 08:32] VITALS: BP 132/98; PULSE 115; TEMP 96.8
== END 2022-02-12 08:58 | disposition home or self-care (01) | DRG 774 ==
LOC: YASAS 14:27 → Y3N 19:12
PROVIDERS: ADMIT Allergy & Immunology; ATTEND Allergy & Immunology
PROC: HZ2ZZZZ Detoxification Services for Substance Abuse Treatment (ICD-10-PCS; principal; 2022-02-08)
DX: F10.230 Alcohol dependence with withdrawal, uncomplicated (principal); F13.230 Sedative, hypnotic or anxiolytic dependence with withdrawal, uncomplicated; F14.10 Cocaine abuse, uncomplicated; F12.20 Cannabis dependence, uncomplicated; F41.9 Anxiety disorder, unspecified; E78.5 Hyperlipidemia, unspecified; I10 Essential (primary) hypertension; Z86.69 Personal history of other diseases of the nervous system and sense organs; Z87.19 Personal history of other diseases of the digestive system; Z88.8 Allergy status to other drugs, medicaments and biological substances; Z91.013 Allergy to seafood
CPT/HCPCS: 36415; 80053; 85027; 86780; 87389; C9803; J0735; U0003; U0005

== ENCOUNTER 2022-07-10 15:32 | Inpatient (IN) | payer OTHER ==
[2022-07-10 16:06] VITALS: BMI 22.3
[2022-07-10] MEDS ORDERED: SODIUM CHLORIDE 1,000 ML IV STA (16:41)
[2022-07-10] MEDS ORDERED: chlordiazePOXIDE HCL 25 MG CAPSULE PO ONE (16:43)
[2022-07-10] MEDS ORDERED: ONDANSETRON 4 MG/2 ML VIAL IVPUSH ONE (16:43)
[2022-07-10] MEDS ORDERED: chlordiazePOXIDE HCL 25 MG CAPSULE ONE (17:08)
[2022-07-10] MEDS ORDERED: ONDANSETRON 4 MG/2 ML VIAL ONE (17:08)
[2022-07-10] MEDS ORDERED: IBUPROFEN 600 MG TABLET (FP) PO ONE ×2 (17:29)
[2022-07-10 17:57] LABS: BASO % 0.9 % (0-2.0); HEMATOCRIT 41.8 % (35.4-49); LYMPH % 4.1 % (8-40); MCH 30.9 pg (25.7-33.7); MCHC 33.4 g/dl (32.0-35.9); MEAN CELL VOLUME 92.4 fl (80-96); MEAN PLT VOLUME 7.8 fl (7.5-11.1); MONO % 6.3 % (3.8-10.2); NEUT % 88.7 % (42.8-82.8); PLATELET COUNT 253 10^3/uL (134-434); RBC 4.53 M/mm3 (4.00-5.60); RDW 17.8 % (11.9-15.9); WHITE BLOOD COUNT 12.5 K/mm3 (4.0-10.0)
[2022-07-10 18:02] LABS: INR 0.91 (0.83-1.09); PROTHROMBIN TIME (PATIENT) 10.5 SEC (9.7-13.0)
[2022-07-10 18:04] LABS: ACTIVATED PTT 30.4 SECONDS (25.2-36.5)
[2022-07-10 18:16] LABS: CHLORIDE 97 mmol/L (98-107); SODIUM 133 mmol/L (136-145)
[2022-07-10 18:18] LABS: ALBUMIN 4.2 g/dl (3.4-5.0); ANION GAP 10 MMOL/L (8-16); BLOOD UREA NITROGEN 12.6 mg/dL (7-18); CALCIUM 9.3 mg/dL (8.5-10.1); CO2 27 mmol/L (21-32); GLUCOSE,RANDOM 93 mg/dL (74-106); MAGNESIUM 2.1 mg/dL (1.8-2.4)
[2022-07-10 18:20] LABS: CREATININE 0.9 mg/dL (0.55-1.3); SGPT/ALT 159 U/L (13-61)
[2022-07-10 18:22] LABS: SGOT/AST 313 U/L (15-37)
[2022-07-10 18:23] LABS: BILIRUBIN,TOTAL 1.9 mg/dL (0.2-1); TOT PROT 7.8 g/dl (6.4-8.2)
[2022-07-10 18:24] LABS: ALK PHOS 75 U/L (45-117)
[2022-07-10] MEDS ORDERED: hydrALAZINE HCL 20 MG/ML VIAL IM ONE (18:45)
[2022-07-10] MEDS ORDERED: ASPIRIN 325 MG TABLET PO ONE (18:45)
[2022-07-10] MEDS ORDERED: ATORVASTATIN CA 40 MG TABLET (FP) PO ONE (18:46)
[2022-07-10] MEDS ORDERED: LISINOPRIL 20 MG TABLET PO ONE (19:09)
[2022-07-10] MEDS ORDERED: ENOXAPARIN NA (PORCINE) 40 MG/0.4 ML DISP.SYRIN SQ ONE (19:10)
[2022-07-10] MEDS ORDERED: ATORVASTATIN CA 40 MG TABLET (FP) ONE (19:42)
[2022-07-10] MEDS ORDERED: hydrALAZINE HCL 20 MG/ML VIAL ONE ×2 (19:42→19:52)
[2022-07-10] MEDS ORDERED: LISINOPRIL 20 MG TABLET ONE (19:42)
[2022-07-10] MEDS ORDERED: ASPIRIN 325 MG TABLET ONE (19:43)
[2022-07-10] MEDS ORDERED: ENOXAPARIN NA (PORCINE) 80 MG/0.8 ML DISP.SYRIN SQ ONE (19:43)
[2022-07-10 21:19] LABS: LIPASE 248 U/L (73-393)
[2022-07-10] MEDS ORDERED: FOLIC ACID INJECTION - 1 MG, THIAMINE HCL 100 MG, MULTIVIT INJECTION ADULT 10 ML in SOD... IVPB ONE (23:34)
[2022-07-10] MEDS ORDERED: LORazepam 1 MG TABLET PO PRN (23:38)
[2022-07-11] MEDS: LORazepam 2 MG TABLET PO SCH ×3 (00:33→01:12)
[2022-07-11] MEDS ORDERED: LORazepam 1 MG TABLET ONE ×5 (01:06→22:53)
[2022-07-11] MEDS: LORazepam 1 MG TABLET PO SCH ×4 (04:54→23:03)
[2022-07-11] MEDS: GABAPENTIN 300 MG CAPSULE PO SCH ×3 (05:05→23:03)
[2022-07-11] MEDS ORDERED: GABAPENTIN 300 MG CAPSULE ONE ×3 (05:10→22:54)
[2022-07-11 08:35] LABS: HEMATOCRIT 41.1 % (35.4-49); HEMOGLOBIN 13.6 GM/dL (11.7-16.9); MCH 31.2 pg (25.7-33.7); MCHC 33.1 g/dl (32.0-35.9); MEAN CELL VOLUME 94.3 fl (80-96); MEAN PLT VOLUME 8.3 fl (7.5-11.1); PLATELET COUNT 233 10^3/uL (134-434); RBC 4.36 M/mm3 (4.00-5.60); RDW 17.7 % (11.9-15.9); WHITE BLOOD COUNT 6.9 K/mm3 (4.0-10.0)
[2022-07-11 08:59] LABS: BILIRUBIN,DIRECT 0.4 mg/dL (0.0-0.2); CALCIUM 8.8 mg/dL (8.5-10.1)
[2022-07-11 09:00] LABS: ALBUMIN 3.5 g/dl (3.4-5.0); BLOOD UREA NITROGEN 11.7 mg/dL (7-18)
[2022-07-11 09:04] LABS: BILIRUBIN,TOTAL 1.8 mg/dL (0.2-1); TOT PROT 6.5 g/dl (6.4-8.2)
[2022-07-11 09:29] LABS: CHOLESTEROL 251 mg/dL (50-200); TRIGLYCERIDES 166 mg/dL (0-150)
[2022-07-11 09:30] LABS: LDL CHOLESTEROL (ONLY SJRH) 145 mg/dL (5-100)
[2022-07-11 09:32] LABS: HDL CHOLESTEROL 84 mg/dL (40-60)
[2022-07-11] MEDS ORDERED: ENOXAPARIN NA (PORCINE) 40 MG/0.4 ML DISP.SYRIN SQ SCH (10:00)
[2022-07-11] MEDS ORDERED: PANTOPRAZOLE 40 MG TABLET PO ONE (11:28)
[2022-07-11] MEDS ORDERED: LISINOPRIL 5 MG TABLET ONE (11:29)
[2022-07-11] MEDS ORDERED: amLODIPine BESYLATE 10 MG TABLET (FP) ONE (11:29)
[2022-07-11] MEDS ORDERED: ASPIRIN 81 MG CHEWABLE TABLETS ONE (11:30)
[2022-07-11] MEDS ORDERED: ENOXAPARIN NA (PORCINE) 80 MG/0.8 ML DISP.SYRIN SQ ONE (11:31)
[2022-07-11] MEDS: NICOTINE 14 MG/24 HOURS TOPICAL PATCH TD SCH (12:00)
[2022-07-11] MEDS: PANTOPRAZOLE 40 MG TABLET PO SCH (12:30)
[2022-07-11] MEDS: ENOXAPARIN NA (PORCINE) 60 MG/0.6 ML DISP.SYRIN SQ SCH ×3 (12:30→22:51)
[2022-07-11] MEDS: LISINOPRIL 5 MG TABLET PO SCH (12:30)
[2022-07-11] MEDS: amLODIPine BESYLATE 10 MG TABLET (FP) PO SCH (12:30)
[2022-07-11] MEDS: ASPIRIN 81 MG CHEWABLE TABLETS PO SCH (12:30)
[2022-07-11 17:17] LABS: EPI CELLS 6 /uL (0-25.1); HYALINE CASTS 2 /uL (0-3.1); URINE APPEARANCE CLOUDY; URINE BACTERIA 25 /uL (0-1359); URINE BILIRUBIN NEGATIVE (NEGATIVE); URINE COLOR DK YELLOW; URINE GLUCOSE (UA) NEGATIVE (NEGATIVE); URINE KETONE 1+ (NEGATIVE); URINE LEUK ESTERASE NEGATIVE (NEGATIVE); URINE NITRITE NEGATIVE (NEGATIVE); URINE PROTEIN 1+ (NEGATIVE); URINE RBC 20 /uL (0-23.9); URINE WBC 13 /uL (0-25.8)
[2022-07-11] MEDS ORDERED: IBUPROFEN 400 MG TABLET (FP) PO PRN (21:22)
[2022-07-11] MEDS ORDERED: ATORVASTATIN CA 40 MG TABLET (FP) PO SCH (22:00)
[2022-07-11] MEDS ORDERED: ATORVASTATIN CA 40 MG TABLET (FP) ONE (22:53)
[2022-07-11] MEDS ORDERED: traZODone HCL 50 MG TABLET (FP) PO ONE (22:55)
[2022-07-11] MEDS ORDERED: IBUPROFEN 400 MG TABLET (FP) PO ONE (22:59)
[2022-07-12] MEDS ORDERED: LORazepam 0.5 MG TABLET PO PRN
[2022-07-12 05:11] VITALS: TEMP 98
[2022-07-12] MEDS ORDERED: GABAPENTIN 300 MG CAPSULE ONE ×2 (05:14→13:32)
[2022-07-12] MEDS ORDERED: LORazepam 0.5 MG TABLET ONE ×2 (05:14→11:32)
[2022-07-12] MEDS: LORazepam 0.5 MG TABLET PO SCH ×2 (05:19→11:41)
[2022-07-12] MEDS: GABAPENTIN 300 MG CAPSULE PO SCH ×2 (06:02→13:37)
[2022-07-12] MEDS ORDERED: ASPIRIN 81 MG CHEWABLE TABLETS ONE (09:54)
[2022-07-12] MEDS ORDERED: LISINOPRIL 5 MG TABLET ONE (09:54)
[2022-07-12] MEDS ORDERED: PANTOPRAZOLE 40 MG TABLET PO ONE (09:54)
[2022-07-12] MEDS ORDERED: amLODIPine BESYLATE 10 MG TABLET (FP) ONE (09:54)
[2022-07-12] MEDS ORDERED: NICOTINE 14 MG/24 HOURS TOPICAL PATCH TD ONE (09:54)
[2022-07-12] MEDS: amLODIPine BESYLATE 10 MG TABLET (FP) PO SCH (09:56)
[2022-07-12] MEDS: PANTOPRAZOLE 40 MG TABLET PO SCH (09:56)
[2022-07-12] MEDS: NICOTINE 14 MG/24 HOURS TOPICAL PATCH TD SCH (09:56)
[2022-07-12] MEDS: ASPIRIN 81 MG CHEWABLE TABLETS PO SCH (09:56)
[2022-07-12] MEDS: LISINOPRIL 5 MG TABLET PO SCH (09:56)
[2022-07-12] MEDS ORDERED: ENOXAPARIN NA (PORCINE) 80 MG/0.8 ML DISP.SYRIN SQ SCH ×2 (09:58→13:43)
[2022-07-12 10:14] VITALS: BP 151/98; PULSE 71; RESP 16
[2022-07-12] MEDS ORDERED: ENOXAPARIN NA (PORCINE) 80 MG/0.8 ML DISP.SYRIN SQ ONE (11:35)
[2022-07-12] MEDS ORDERED: traZODone HCL 50 MG TABLET (FP) PO SCH (22:00)
[2022-07-13] MEDS ORDERED: LORazepam 0.5 MG TABLET PO ONE (05:00)
== END 2022-07-12 16:30 | disposition left against medical advice (07) | DRG 199 ==
LOC: JER 15:32 → JERBED 19:12
PROVIDERS: ADMIT Hospitalist; ATTEND Internal Medicine
PROC: HZ2ZZZZ Detoxification Services for Substance Abuse Treatment (ICD-10-PCS; principal; 2022-07-10)
DX: I16.0 Hypertensive urgency (principal); I24.8 Other forms of acute ischemic heart disease; E72.20 Disorder of urea cycle metabolism, unspecified; Q61.02 Congenital multiple renal cysts; K70.10 Alcoholic hepatitis without ascites; E78.5 Hyperlipidemia, unspecified; E80.6 Other disorders of bilirubin metabolism; F10.239 Alcohol dependence with withdrawal, unspecified; F17.210 Nicotine dependence, cigarettes, uncomplicated; F19.10 Other psychoactive substance abuse, uncomplicated; F31.9 Bipolar disorder, unspecified; I10 Essential (primary) hypertension
CPT/HCPCS: 0241U-QW; 36415; 71046-TC-FY; 76705-TC; 80053; 80061; 80307; 81003; 82140; 82248; 82550; 82553; 83036; 83690; 83735; 84100; 84443; 84484; 85025; 85027; 85610; 85730; 87086; 93005; 93010; 93306-TC; 99285-25

== ENCOUNTER 2022-08-23 08:21 | Inpatient (IN) | payer OTHER ==
[2022-08-23 09:51] VITALS: BMI 22.3
[2022-08-23] MEDS ORDERED: cloNIDine HCL 0.1 MG TABLET PO PRN (10:10)
[2022-08-23] MEDS ORDERED: MAGNESIUM CITRATE 300 ML BOTTLE PO PRN (10:10)
[2022-08-23] MEDS ORDERED: BISMUTH SUBSALICYLATE 262 MG/15 ML BTL PO PRN (10:10)
[2022-08-23] MEDS ORDERED: METHOCARBAMOL 500 MG TABLET PO PRN (10:10)
[2022-08-23] MEDS ORDERED: BENZOCAINE/MENTHOL (CHLORASEPTIC ) LOZENGE MM PRN (10:10)
[2022-08-23] MEDS ORDERED: NALOXONE HCL (KLOXXADO) 8 MG SPRAY NS PRN (10:10)
[2022-08-23] MEDS ORDERED: diazePAM 5 MG TABLET PO PRN (10:10)
[2022-08-23] MEDS ORDERED: ACETAMINOPHEN 325 MG TABLET (FP) PO PRN ×2 (10:10)
[2022-08-23] MEDS ORDERED: MAGNESIUM HYDROX 2400MG/30ML ORAL SUSPENSION 30 ML CUP PO PRN (10:10)
[2022-08-23] MEDS ORDERED: NICOTINE 10 MG CARTRIDGE (INHALER) IH PRN (10:10)
[2022-08-23] MEDS ORDERED: LOPERAMIDE HCL 2 MG CAPSULE PO PRN (10:10)
[2022-08-23] MEDS ORDERED: IBUPROFEN 600 MG TABLET (FP) PO PRN (10:10)
[2022-08-23] MEDS ORDERED: IBUPROFEN 400 MG TABLET (FP) PO PRN (10:10)
[2022-08-23] MEDS ORDERED: DICYCLOMINE HCL 10 MG CAPSULE PO PRN (10:10)
[2022-08-23] MEDS ORDERED: MAG HYDROX/AL HYDROX/SIMETH 30 ML UNIT-DOSE CUP PO PRN (10:10)
[2022-08-23] MEDS ORDERED: NICOTINE POLACRILEX 2 MG GUM BUC PRN (10:10)
[2022-08-23] MEDS ORDERED: methaDONE HCL 10 MG TABLET (FOR DETOX USE ONLY) PO ONE (10:10)
[2022-08-23] MEDS ORDERED: cloNIDine HCL 0.1 MG TABLET PO STA (10:16)
[2022-08-23] MEDS: ONDANSETRON *ODT* 4 MG TABLET SL PRN ×2 (10:41→18:49)
[2022-08-23] MEDS ORDERED: amLODIPine BESYLATE 5 MG TABLET (FP) ONE (10:45)
[2022-08-23] MEDS ORDERED: LISINOPRIL 10 MG TABLET ONE (10:45)
[2022-08-23] MEDS: amLODIPine BESYLATE 10 MG TABLET (FP) PO SCH (10:46)
[2022-08-23] MEDS: LISINOPRIL 5 MG TABLET PO SCH (10:46)
[2022-08-23] MEDS: diazePAM 5 MG TABLET PO SCH ×3 (11:47→23:24)
[2022-08-23] MEDS: PRENATAL VITAMINS W/ FOLIC ACID TABLET (FP) PO SCH (11:48)
[2022-08-23] MEDS: hydrOXYzine PAMOATE 25 MG CAPSULE (FP) PO SCH ×3 (14:31→23:22)
[2022-08-23] MEDS ORDERED: ATORVASTATIN CA 40 MG TABLET (FP) PO SCH (22:00)
[2022-08-23] MEDS ORDERED: MELATONIN 5 MG TABLETS PO SCH (22:00)
[2022-08-23] MEDS ORDERED: THIAMINE HCL 100 MG TABLET (FP) PO SCH (22:00)
[2022-08-24] MEDS: diazePAM 5 MG TABLET PO SCH ×2 (06:13→10:48)
[2022-08-24] MEDS: hydrOXYzine PAMOATE 25 MG CAPSULE (FP) PO SCH ×3 (06:13→15:25)
[2022-08-24 10:41] LABS: HEMATOCRIT 39.7 % (35.4-49); HEMOGLOBIN 13.7 GM/dL (11.7-16.9); MCH 32.8 pg (25.7-33.7); MCHC 34.5 g/dl (32.0-35.9); MEAN PLT VOLUME 7.2 fl (7.5-11.1); PLATELET COUNT 346 10^3/uL (134-434); RBC 4.18 M/mm3 (4.00-5.60); RDW 15.2 % (11.9-15.9); WHITE BLOOD COUNT 8.5 K/mm3 (4.0-10.0)
[2022-08-24 10:44] LABS: CHLORIDE 96 mmol/L (98-107); SODIUM 137 mmol/L (136-145)
[2022-08-24] MEDS: PRENATAL VITAMINS W/ FOLIC ACID TABLET (FP) PO SCH (10:46)
[2022-08-24] MEDS: LISINOPRIL 5 MG TABLET PO SCH (10:46)
[2022-08-24] MEDS: amLODIPine BESYLATE 10 MG TABLET (FP) PO SCH (10:47)
[2022-08-24 10:50] LABS: CALCIUM 8.8 mg/dL (8.5-10.1)
[2022-08-24 10:51] LABS: ALBUMIN 3.1 g/dl (3.4-5.0); ANION GAP 6 MMOL/L (8-16); BLOOD UREA NITROGEN 8.7 mg/dL (7-18); CO2 34 mmol/L (21-32); SGOT/AST 34 U/L (15-37)
[2022-08-24 10:53] LABS: BILIRUBIN,TOTAL 0.7 mg/dL (0.2-1); TOT PROT 6.6 g/dl (6.4-8.2)
[2022-08-24 10:54] LABS: ALK PHOS 107 U/L (45-117); GLUCOSE,RANDOM 48 mg/dL (74-106); SGPT/ALT 30 U/L (13-61)
[2022-08-24] MEDS ORDERED: AMOXICILLIN 500 MG CAPSULE (FP) PO SCH (12:15)
[2022-08-24 18:10] VITALS: BP 130/82; PULSE 75; RESP 16; TEMP 97.4
[2022-08-25] MEDS ORDERED: diazePAM 5 MG TABLET PO SCH (06:00)
[2022-08-25] MEDS ORDERED: methaDONE HCL 10 MG TABLET (FOR DETOX USE ONLY) PO ONE (10:00)
[2022-08-26] MEDS ORDERED: diazePAM 5 MG TABLET PO SCH (06:00)
[2022-08-27] MEDS ORDERED: diazePAM 5 MG TABLET PO ONE (06:00)
[2022-08-27] MEDS ORDERED: methaDONE HCL 10 MG TABLET (FOR DETOX USE ONLY) PO ONE (10:00)
== END 2022-08-24 06:26 | disposition left against medical advice (07) | DRG 770 ==
LOC: YASAS 08:21 → Y6N 11:05
PROVIDERS: ADMIT Allergy & Immunology; ATTEND Surgery
PROC: HZ2ZZZZ Detoxification Services for Substance Abuse Treatment (ICD-10-PCS; principal; 2022-08-23)
DX: F11.23 Opioid dependence with withdrawal (principal); F10.230 Alcohol dependence with withdrawal, uncomplicated; F14.20 Cocaine dependence, uncomplicated; F13.20 Sedative, hypnotic or anxiolytic dependence, uncomplicated; F12.20 Cannabis dependence, uncomplicated; F17.210 Nicotine dependence, cigarettes, uncomplicated; F31.64 Bipolar disorder, current episode mixed, severe, with psychotic features; E78.5 Hyperlipidemia, unspecified; I10 Essential (primary) hypertension; M10.9 Gout, unspecified; Z88.8 Allergy status to other drugs, medicaments and biological substances; Z91.013 Allergy to seafood
CPT/HCPCS: 36415; 80053; 82962; 85027; 86780; 87811; C9803-CS; Q0162; U0003; U0005

== ENCOUNTER 2022-10-18 19:33 | Inpatient (IN) | payer OTHER ==
[2022-10-18 20:06] VITALS: BMI 23.2
[2022-10-18] MEDS ORDERED: LISINOPRIL 5 MG TABLET PO SCH (20:30)
[2022-10-18] MEDS ORDERED: amLODIPine BESYLATE 10 MG TABLET (FP) PO SCH (20:30)
[2022-10-18] MEDS ORDERED: DICYCLOMINE HCL 10 MG CAPSULE PO PRN (20:42)
[2022-10-18] MEDS ORDERED: MAG HYDROX/AL HYDROX/SIMETH 30 ML UNIT-DOSE CUP PO PRN (20:42)
[2022-10-18] MEDS ORDERED: IBUPROFEN 400 MG TABLET (FP) PO PRN (20:42)
[2022-10-18] MEDS ORDERED: MAGNESIUM HYDROX 2400MG/30ML ORAL SUSPENSION 30 ML CUP PO PRN (20:42)
[2022-10-18] MEDS ORDERED: BISMUTH SUBSALICYLATE 524 MG/30 ML PO PRN (20:42)
[2022-10-18] MEDS ORDERED: POLYETHYLENE GLYCOL (HEALTHYLAX) 3350 17 GM PACKET PO PRN (20:42)
[2022-10-18] MEDS ORDERED: BENZOCAINE/MENTHOL (CHLORASEPTIC ) LOZENGE MM PRN (20:42)
[2022-10-18] MEDS ORDERED: IBUPROFEN 600 MG TABLET (FP) PO PRN (20:42)
[2022-10-18] MEDS ORDERED: ONDANSETRON *ODT* 4 MG TABLET SL PRN (20:42)
[2022-10-18] MEDS ORDERED: NALOXONE HCL 0.4 MG/ML VIAL IM PRN (20:42)
[2022-10-18] MEDS ORDERED: hydrOXYzine PAMOATE 25 MG CAPSULE (FP) PO PRN (20:42)
[2022-10-18] MEDS ORDERED: guaiFENesin 200 MG/10 ML 10 ML UNIT-DOSE CUPS PO PRN (20:42)
[2022-10-18] MEDS ORDERED: P-EPHED 60MG/TRIPROLIDI 2.5MG TABLET PO PRN (20:42)
[2022-10-18] MEDS ORDERED: LOPERAMIDE HCL 2 MG CAPSULE PO PRN (20:42)
[2022-10-18] MEDS ORDERED: ACETAMINOPHEN 325 MG TABLET (FP) PO PRN ×2 (20:42)
[2022-10-18] MEDS ORDERED: NALOXONE HCL (KLOXXADO) 8 MG SPRAY NS PRN (20:42)
[2022-10-18] MEDS ORDERED: chlordiazePOXIDE HCL 25 MG CAPSULE PO PRN (20:44)
[2022-10-18] MEDS: MELATONIN 5 MG TABLETS PO SCH (23:11)
[2022-10-18] MEDS: ATORVASTATIN CA 40 MG TABLET (FP) PO SCH (23:11)
[2022-10-18] MEDS: amLODIPine BESYLATE 10 MG TABLET (FP) PO SCH (23:11)
[2022-10-18] MEDS: METHOCARBAMOL 500 MG TABLET PO PRN (23:11)
[2022-10-18] MEDS: LISINOPRIL 5 MG TABLET PO SCH (23:11)
[2022-10-18] MEDS: THIAMINE HCL 100 MG TABLET (FP) PO SCH (23:12)
[2022-10-18] MEDS: chlordiazePOXIDE HCL 25 MG CAPSULE PO SCH (23:12)
[2022-10-19] MEDS: chlordiazePOXIDE HCL 25 MG CAPSULE PO SCH ×4 (06:02→22:26)
[2022-10-19 10:13] LABS: HEMATOCRIT 38.9 % (35.4-49); HEMOGLOBIN 12.8 GM/dL (11.7-16.9); MCHC 32.9 g/dl (32.0-35.9); MEAN CELL VOLUME 94.3 fl (80-96); MEAN PLT VOLUME 7.2 fl (7.5-11.1); PLATELET COUNT 364 10^3/uL (134-434); RBC 4.13 M/mm3 (4.00-5.60); WHITE BLOOD COUNT 5.6 K/mm3 (4.0-10.0)
[2022-10-19] MEDS: amLODIPine BESYLATE 10 MG TABLET (FP) PO SCH (10:17)
[2022-10-19] MEDS: LISINOPRIL 5 MG TABLET PO SCH (10:17)
[2022-10-19] MEDS: PRENATAL VITAMINS W/ FOLIC ACID TABLET (FP) PO SCH (10:20)
[2022-10-19 10:54] LABS: ALBUMIN 3.8 g/dl (3.4-5.0); BLOOD UREA NITROGEN 12.6 mg/dL (7-18); CALCIUM 9.2 mg/dL (8.5-10.1)
[2022-10-19 10:57] LABS: CREATININE 1.3 mg/dL (0.55-1.3)
[2022-10-19] MEDS ORDERED: methaDONE HCL 10 MG TABLET (FOR DETOX USE ONLY) PO ONE (10:57)
[2022-10-19] MEDS ORDERED: cloNIDine HCL 0.1 MG TABLET PO PRN (10:57)
[2022-10-19 10:58] LABS: BILIRUBIN,TOTAL 0.9 mg/dL (0.2-1)
[2022-10-19] MEDS: THIAMINE HCL 100 MG TABLET (FP) PO SCH (22:24)
[2022-10-19] MEDS: MELATONIN 5 MG TABLETS PO SCH (22:24)
[2022-10-19] MEDS: ATORVASTATIN CA 40 MG TABLET (FP) PO SCH (22:24)
[2022-10-19] MEDS: GABAPENTIN 300 MG CAPSULE PO SCH (22:25)
[2022-10-19] MEDS: METHOCARBAMOL 500 MG TABLET PO PRN (22:26)
[2022-10-20] MEDS: chlordiazePOXIDE HCL 25 MG CAPSULE PO SCH ×2 (05:30→10:01)
[2022-10-20] MEDS: GABAPENTIN 300 MG CAPSULE PO SCH (05:30)
[2022-10-20 09:24] VITALS: BP 122/86; PULSE 75; RESP 16; TEMP 97.7
[2022-10-20] MEDS: METHOCARBAMOL 500 MG TABLET PO PRN (10:00)
[2022-10-20] MEDS: PRENATAL VITAMINS W/ FOLIC ACID TABLET (FP) PO SCH (10:00)
[2022-10-20] MEDS: LISINOPRIL 5 MG TABLET PO SCH (10:00)
[2022-10-20] MEDS: amLODIPine BESYLATE 10 MG TABLET (FP) PO SCH (10:00)
[2022-10-21] MEDS ORDERED: chlordiazePOXIDE HCL 10 MG CAPSULE PO PRN
[2022-10-21] MEDS ORDERED: chlordiazePOXIDE HCL 10 MG CAPSULE PO SCH (05:00)
[2022-10-21] MEDS ORDERED: methaDONE HCL 10 MG TABLET (FOR DETOX USE ONLY) PO ONE (10:00)
[2022-10-22] MEDS ORDERED: chlordiazePOXIDE HCL 10 MG CAPSULE PO SCH (05:00)
[2022-10-23] MEDS ORDERED: chlordiazePOXIDE HCL 10 MG CAPSULE PO ONE (05:00)
[2022-10-23] MEDS ORDERED: methaDONE HCL 10 MG TABLET (FOR DETOX USE ONLY) PO ONE (10:00)
== END 2022-10-20 10:08 | disposition left against medical advice (07) | DRG 770 ==
LOC: YASAS 19:33 → Y3N 21:44
PROVIDERS: ADMIT Allergy & Immunology; ATTEND Surgery
PROC: HZ2ZZZZ Detoxification Services for Substance Abuse Treatment (ICD-10-PCS; principal; 2022-10-18)
DX: F11.23 Opioid dependence with withdrawal (principal); F10.230 Alcohol dependence with withdrawal, uncomplicated; F14.20 Cocaine dependence, uncomplicated; F13.20 Sedative, hypnotic or anxiolytic dependence, uncomplicated; F12.20 Cannabis dependence, uncomplicated; F15.10 Other stimulant abuse, uncomplicated; F17.210 Nicotine dependence, cigarettes, uncomplicated; F19.24 Other psychoactive substance dependence with psychoactive substance-induced mood disorder; G47.00 Insomnia, unspecified; E78.5 Hyperlipidemia, unspecified; I10 Essential (primary) hypertension; K21.9 Gastro-esophageal reflux disease without esophagitis; M10.9 Gout, unspecified; M16.0 Bilateral primary osteoarthritis of hip; Z86.69 Personal history of other diseases of the nervous system and sense organs; Z88.5 Allergy status to narcotic agent; Z91.013 Allergy to seafood; Z87.19 Personal history of other diseases of the digestive system
CPT/HCPCS: 36415; 80053; 85027; 86780; C9803-CS; U0003; U0005

== ENCOUNTER 2023-03-01 08:46 | Inpatient (IN) | payer OTHER ==
[2023-03-01 09:19] VITALS: BMI 23.1
[2023-03-01] MEDS ORDERED: LOPERAMIDE HCL 2 MG CAPSULE PO PRN (09:50)
[2023-03-01] MEDS ORDERED: hydrOXYzine PAMOATE 25 MG CAPSULE (FP) PO PRN (09:50)
[2023-03-01] MEDS ORDERED: POLYETHYLENE GLYCOL (HEALTHYLAX) 3350 17 GM PACKET PO PRN (09:50)
[2023-03-01] MEDS ORDERED: METHOCARBAMOL 500 MG TABLET PO PRN (09:50)
[2023-03-01] MEDS ORDERED: ACETAMINOPHEN 325 MG TABLET (FP) PO PRN (09:50)
[2023-03-01] MEDS ORDERED: BENZOCAINE/MENTHOL (CHLORASEPTIC ) LOZENGE MM PRN (09:50)
[2023-03-01] MEDS ORDERED: NALOXONE HCL (KLOXXADO) 8 MG SPRAY NS PRN (09:50)
[2023-03-01] MEDS ORDERED: NICOTINE 10 MG CARTRIDGE (INHALER) IH PRN (09:50)
[2023-03-01] MEDS ORDERED: MAG HYDROX/AL HYDROX/SIMETH 30 ML UNIT-DOSE CUP PO PRN (09:50)
[2023-03-01] MEDS ORDERED: guaiFENesin 600 MG TABLET.ER (FP) PO PRN (09:50)
[2023-03-01] MEDS ORDERED: LORazepam 1 MG TABLET PO PRN (09:50)
[2023-03-01] MEDS ORDERED: IBUPROFEN 600 MG TABLET (FP) PO PRN (09:50)
[2023-03-01] MEDS ORDERED: NALOXONE HCL 0.4 MG/ML VIAL IM PRN (09:50)
[2023-03-01] MEDS ORDERED: DICYCLOMINE HCL 10 MG CAPSULE PO PRN (09:50)
[2023-03-01] MEDS ORDERED: IBUPROFEN 400 MG TABLET (FP) PO PRN (09:50)
[2023-03-01] MEDS ORDERED: ONDANSETRON *ODT* 4 MG TABLET SL PRN (09:50)
[2023-03-01] MEDS ORDERED: MAGNESIUM HYDROX 2400MG/30ML ORAL SUSPENSION 30 ML CUP PO PRN (09:50)
[2023-03-01] MEDS ORDERED: BISMUTH SUBSALICYLATE 524 MG/30 ML PO PRN (09:50)
[2023-03-01] MEDS ORDERED: BENZONATATE 200 MG CAPSULE PO PRN (09:50)
[2023-03-01] MEDS ORDERED: amLODIPine BESYLATE 5 MG TABLET (FP) ONE (10:06)
[2023-03-01] MEDS: amLODIPine BESYLATE 10 MG TABLET (FP) PO SCH ×2 (10:24→11:19)
[2023-03-01] MEDS: PRENATAL VITAMINS W/ FOLIC ACID TABLET (FP) PO SCH ×2 (10:26→11:20)
[2023-03-01] MEDS: LISINOPRIL 5 MG TABLET PO SCH ×2 (10:30→11:15)
[2023-03-01] MEDS: LORazepam 2 MG TABLET PO SCH ×3 (11:16→22:29)
[2023-03-01] MEDS: GABAPENTIN 300 MG CAPSULE PO SCH ×2 (13:50→22:28)
[2023-03-01 14:19] LABS: HEMATOCRIT 34.9 % (35.4-49); MCHC 31.5 g/dl (32.0-35.9); MEAN CELL VOLUME 79.3 fl (80-96); MEAN PLT VOLUME 6.7 fl (7.5-11.1); PLATELET COUNT 543 10^3/uL (134-434); RDW 17.2 % (11.9-15.9); WHITE BLOOD COUNT 6.7 K/mm3 (4.0-10.0)
[2023-03-01 14:46] LABS: CALCIUM 9.8 mg/dL (8.5-10.1)
[2023-03-01 14:47] LABS: ALBUMIN 4.3 g/dl (3.4-5.0); BLOOD UREA NITROGEN 16.6 mg/dL (7-18)
[2023-03-01 14:51] LABS: BILIRUBIN,TOTAL 0.6 mg/dL (0.2-1)
[2023-03-01] MEDS: MELATONIN 5 MG TABLETS PO SCH (22:28)
[2023-03-01] MEDS: THIAMINE HCL 100 MG TABLET (FP) PO SCH (22:29)
[2023-03-01] MEDS: ATORVASTATIN CA 40 MG TABLET (FP) PO SCH (22:29)
[2023-03-02] MEDS: LORazepam 2 MG TABLET PO SCH ×4 (05:45→22:51)
[2023-03-02] MEDS: GABAPENTIN 300 MG CAPSULE PO SCH ×3 (05:45→22:51)
[2023-03-02] MEDS: PRENATAL VITAMINS W/ FOLIC ACID TABLET (FP) PO SCH (10:17)
[2023-03-02] MEDS: amLODIPine BESYLATE 10 MG TABLET (FP) PO SCH (10:18)
[2023-03-02] MEDS: LISINOPRIL 5 MG TABLET PO SCH (10:18)
[2023-03-02] MEDS: LACTULOSE 20 GM/30 ML UDC (FOR ORAL USE ONLY) PO SCH ×3 (14:45→22:51)
[2023-03-02] MEDS: MELATONIN 5 MG TABLETS PO SCH (22:51)
[2023-03-02] MEDS: ATORVASTATIN CA 40 MG TABLET (FP) PO SCH (22:51)
[2023-03-02] MEDS: THIAMINE HCL 100 MG TABLET (FP) PO SCH (22:52)
[2023-03-03] MEDS: LORazepam 1 MG TABLET PO SCH ×2 (06:09→10:36)
[2023-03-03] MEDS: GABAPENTIN 300 MG CAPSULE PO SCH ×2 (06:09→13:10)
[2023-03-03] MEDS: LISINOPRIL 5 MG TABLET PO SCH (10:36)
[2023-03-03] MEDS: amLODIPine BESYLATE 10 MG TABLET (FP) PO SCH (10:36)
[2023-03-03] MEDS: LACTULOSE 20 GM/30 ML UDC (FOR ORAL USE ONLY) PO SCH ×2 (10:36→13:10)
[2023-03-03] MEDS: PRENATAL VITAMINS W/ FOLIC ACID TABLET (FP) PO SCH (10:36)
[2023-03-03 14:01] VITALS: BP 119/61; PULSE 90; RESP 18; TEMP 97.2
[2023-03-04] MEDS ORDERED: LORazepam 0.5 MG TABLET PO PRN
[2023-03-04] MEDS ORDERED: LORazepam 0.5 MG TABLET PO SCH (05:00)
[2023-03-05] MEDS ORDERED: LORazepam 0.5 MG TABLET PO ONE (05:00)
== END 2023-03-03 16:11 | disposition left against medical advice (07) | DRG 770 ==
LOC: YASAS 08:46 → Y3N 10:17
PROVIDERS: ADMIT Allergy & Immunology; ATTEND Surgery
PROC: HZ2ZZZZ Detoxification Services for Substance Abuse Treatment (ICD-10-PCS; principal; 2023-03-01)
DX: F10.230 Alcohol dependence with withdrawal, uncomplicated (principal); F14.20 Cocaine dependence, uncomplicated; F12.20 Cannabis dependence, uncomplicated; F17.210 Nicotine dependence, cigarettes, uncomplicated; F31.9 Bipolar disorder, unspecified; F41.9 Anxiety disorder, unspecified; E72.20 Disorder of urea cycle metabolism, unspecified; E78.00 Pure hypercholesterolemia, unspecified; I10 Essential (primary) hypertension; I25.2 Old myocardial infarction; Z87.19 Personal history of other diseases of the digestive system; Z88.8 Allergy status to other drugs, medicaments and biological substances; Z91.013 Allergy to seafood
CPT/HCPCS: 36415; 80053; 82140; 85027; 86780; 87811; C9803-CS; Q0162; U0003; U0005

== ENCOUNTER 2023-11-19 08:40 | Inpatient (IN) | payer OTHER ==
[2023-11-19 08:59] VITALS: BMI 22.6
[2023-11-19] MEDS ORDERED: MAG HYDROX/AL HYDROX/SIMETH 30 ML UNIT-DOSE CUP PO PRN (09:37)
[2023-11-19] MEDS ORDERED: BENZONATATE 200 MG CAPSULE PO PRN (09:37)
[2023-11-19] MEDS ORDERED: IBUPROFEN 600 MG TABLET (FP) PO PRN (09:37)
[2023-11-19] MEDS ORDERED: ACETAMINOPHEN 325 MG TABLET (FP) PO PRN (09:37)
[2023-11-19] MEDS ORDERED: IBUPROFEN 400 MG TABLET (FP) PO PRN (09:37)
[2023-11-19] MEDS ORDERED: BENZOCAINE/MENTHOL (CHLORASEPTIC ) LOZENGE MM PRN (09:37)
[2023-11-19] MEDS ORDERED: MAGNESIUM HYDROX 2400MG/30ML ORAL SUSPENSION 30 ML CUP PO PRN (09:37)
[2023-11-19] MEDS ORDERED: ONDANSETRON *ODT* 4 MG TABLET SL PRN (09:37)
[2023-11-19] MEDS ORDERED: POLYETHYLENE GLYCOL (HEALTHYLAX) 3350 17 GM PACKET PO PRN (09:37)
[2023-11-19] MEDS ORDERED: BISMUTH SUBSALICYLATE 262 MG/15 ML BTL PO PRN (09:37)
[2023-11-19] MEDS ORDERED: NICOTINE POLACRILEX 2 MG GUM BUC PRN (09:37)
[2023-11-19] MEDS ORDERED: NALOXONE HCL (KLOXXADO) 8 MG SPRAY NS PRN (09:37)
[2023-11-19] MEDS ORDERED: METHOCARBAMOL 500 MG TABLET PO PRN (09:37)
[2023-11-19] MEDS ORDERED: guaiFENesin 600 MG TABLET.ER (FP) PO PRN (09:37)
[2023-11-19] MEDS ORDERED: NALOXONE HCL 0.4 MG/ML VIAL IM PRN (09:37)
[2023-11-19] MEDS ORDERED: hydrOXYzine PAMOATE 25 MG CAPSULE (FP) PO PRN (09:37)
[2023-11-19] MEDS ORDERED: LOPERAMIDE HCL 2 MG CAPSULE PO PRN (09:37)
[2023-11-19] MEDS ORDERED: diazePAM 5 MG TABLET PO PRN (09:49)
[2023-11-19] MEDS: NICOTINE 14 MG/24 HOURS TOPICAL PATCH TD SCH (10:27)
[2023-11-19] MEDS: PRENATAL VITAMINS W/ FOLIC ACID TABLET (FP) PO SCH (10:27)
[2023-11-19] MEDS: diazePAM 5 MG TABLET PO SCH ×3 (10:27→22:43)
[2023-11-19] MEDS ORDERED: diazePAM 5 MG TABLET ONE (10:44)
[2023-11-19] MEDS ORDERED: PRENATAL VITAMINS W/ FOLIC ACID TABLET (FP) PO ONE (10:45)
[2023-11-19] MEDS ORDERED: NICOTINE 14 MG/24 HOURS TOPICAL PATCH TD ONE (10:45)
[2023-11-19] MEDS ORDERED: LOSARTAN POTASSIUM 50 MG TABLET PO SCH (13:00)
[2023-11-19] MEDS: GABAPENTIN 300 MG CAPSULE PO SCH ×2 (14:37→22:43)
[2023-11-19] MEDS: LOSARTAN POTASSIUM 50 MG TABLET PO SCH (14:37)
[2023-11-19] MEDS: LACTULOSE 20 GM/30 ML UDC (FOR ORAL USE ONLY) PO SCH ×2 (14:37→22:44)
[2023-11-19] MEDS ORDERED: cloNIDine HCL 0.1 MG TABLET PO ONE (18:23)
[2023-11-19] MEDS ORDERED: ATORVASTATIN CA 40 MG TABLET (FP) PO SCH (22:00)
[2023-11-19] MEDS ORDERED: MIRTAZAPINE 15 MG TABLET (FP) PO SCH (22:00)
[2023-11-19] MEDS ORDERED: THIAMINE HCL 100 MG TABLET (FP) PO SCH (22:00)
[2023-11-19] MEDS ORDERED: MELATONIN 5 MG TABLETS PO SCH (22:00)
[2023-11-20] MEDS: diazePAM 5 MG TABLET PO SCH ×2 (05:21→11:13)
[2023-11-20] MEDS: GABAPENTIN 300 MG CAPSULE PO SCH (05:24)
[2023-11-20] MEDS: LACTULOSE 20 GM/30 ML UDC (FOR ORAL USE ONLY) PO SCH (05:24)
[2023-11-20] MEDS: PRENATAL VITAMINS W/ FOLIC ACID TABLET (FP) PO SCH (11:10)
[2023-11-20] MEDS: LOSARTAN POTASSIUM 50 MG TABLET PO SCH (11:12)
[2023-11-20] MEDS: NICOTINE 14 MG/24 HOURS TOPICAL PATCH TD SCH (11:13)
[2023-11-20 14:13] VITALS: RESP 16; TEMP 96.8
[2023-11-20 14:15] VITALS: BP 179/118; PULSE 114
[2023-11-21] MEDS ORDERED: diazePAM 5 MG TABLET PO SCH (06:00)
[2023-11-22] MEDS ORDERED: diazePAM 5 MG TABLET PO SCH (06:00)
[2023-11-23] MEDS ORDERED: diazePAM 5 MG TABLET PO ONE (06:00)
== END 2023-11-20 14:15 | disposition left against medical advice (07) | DRG 770 ==
LOC: YASAS 08:40 → Y3N 10:27
PROVIDERS: ADMIT Allergy & Immunology; ATTEND Surgery
PROC: HZ2ZZZZ Detoxification Services for Substance Abuse Treatment (ICD-10-PCS; principal; 2023-11-19)
DX: F10.230 Alcohol dependence with withdrawal, uncomplicated (principal); F13.230 Sedative, hypnotic or anxiolytic dependence with withdrawal, uncomplicated; F14.20 Cocaine dependence, uncomplicated; F12.20 Cannabis dependence, uncomplicated; F17.210 Nicotine dependence, cigarettes, uncomplicated; F31.9 Bipolar disorder, unspecified; I10 Essential (primary) hypertension; E78.5 Hyperlipidemia, unspecified; K21.9 Gastro-esophageal reflux disease without esophagitis; I25.2 Old myocardial infarction; Z87.19 Personal history of other diseases of the digestive system; Z86.59 Personal history of other mental and behavioral disorders; Z88.8 Allergy status to other drugs, medicaments and biological substances
CPT/HCPCS: 87635; 93005; 93010

== ENCOUNTER 2024-08-25 10:13 | Inpatient (IN) | payer OTHER ==
[2024-08-25 10:40] VITALS: BMI 23.0
[2024-08-25] MEDS ORDERED: DICYCLOMINE HCL 10 MG CAPSULE PO PRN (11:21)
[2024-08-25] MEDS ORDERED: ONDANSETRON *ODT* 4 MG TABLET SL PRN (11:21)
[2024-08-25] MEDS ORDERED: NALOXONE HCL 0.4 MG/ML VIAL IM PRN (11:21)
[2024-08-25] MEDS ORDERED: IBUPROFEN 400 MG TABLET (FP) PO PRN (11:21)
[2024-08-25] MEDS ORDERED: BENZONATATE 200 MG CAPSULE PO PRN (11:21)
[2024-08-25] MEDS ORDERED: LOPERAMIDE HCL 2 MG CAPSULE PO PRN (11:21)
[2024-08-25] MEDS ORDERED: POLYETHYLENE GLYCOL (HEALTHYLAX) 3350 17 GM PACKET PO PRN (11:21)
[2024-08-25] MEDS ORDERED: diazePAM 5 MG TABLET PO PRN (11:21)
[2024-08-25] MEDS ORDERED: NALOXONE (NARCAN) HCL 4 MG/0.1 ML SPRAY NS PRN (11:21)
[2024-08-25] MEDS ORDERED: guaiFENesin 600 MG TABLET.ER (FP) PO PRN (11:21)
[2024-08-25] MEDS ORDERED: BENZOCAINE/MENTHOL (CHLORASEPTIC ) LOZENGE MM PRN (11:21)
[2024-08-25] MEDS ORDERED: ACETAMINOPHEN 325 MG TABLET (FP) PO PRN (11:21)
[2024-08-25] MEDS ORDERED: methaDONE HCL 10 MG TABLET (FOR DETOX USE ONLY) ONE (12:42)
[2024-08-25] MEDS ORDERED: amLODIPine BESYLATE 5 MG TABLET (FP) ONE (12:43)
[2024-08-25] MEDS ORDERED: BUPRENORPHINE/NALOXONE 0.5 MG/0.125 MG FILM ONE (12:43)
[2024-08-25] MEDS ORDERED: PRENATAL VITAMINS W/ FOLIC ACID TABLET (FP) PO ONE (12:44)
[2024-08-25] MEDS: methaDONE HCL 10 MG TABLET (FOR DETOX USE ONLY) PO ONE (12:54)
[2024-08-25] MEDS: BUPRENORPHINE/NALOXONE 0.5 MG/0.125 MG FILM SL ONE ×2 (12:55→22:34)
[2024-08-25] MEDS: amLODIPine BESYLATE 10 MG TABLET (FP) PO SCH (12:56)
[2024-08-25] MEDS: PRENATAL VITAMINS W/ FOLIC ACID TABLET (FP) PO SCH (12:56)
[2024-08-25] MEDS: cloNIDine HCL 0.1 MG TABLET PO SCH (13:24)
[2024-08-25] MEDS: GABAPENTIN 300 MG CAPSULE PO SCH (14:14)
[2024-08-25] MEDS: IBUPROFEN 600 MG TABLET (FP) PO PRN (14:16)
[2024-08-25] MEDS: diazePAM 5 MG TABLET PO SCH (17:27)
[2024-08-25] MEDS: LIDOCAINE 4% PATCH TP SCH (17:45)
[2024-08-25] MEDS: LIDOCAINE PATCH REMOVAL MC SCH (22:33)
[2024-08-25] MEDS: ATORVASTATIN CA 40 MG TABLET (FP) PO SCH (22:33)
[2024-08-25] MEDS: MIRTAZAPINE 15 MG TABLET (FP) PO SCH (22:33)
[2024-08-25] MEDS: THIAMINE 100 MG TABLET PO SCH (22:34)
[2024-08-25] MEDS: MELATONIN 5 MG TABLETS PO SCH (22:34)
[2024-08-26] MEDS: amLODIPine BESYLATE 10 MG TABLET (FP) PO SCH (10:12)
[2024-08-26] MEDS: LOSARTAN POTASSIUM 50 MG TABLET PO SCH (10:12)
[2024-08-26] MEDS: BUPRENORPHINE/NALOXONE 0.5 MG/0.125 MG FILM SL SCH (10:13)
[2024-08-26] MEDS: METHOCARBAMOL 500 MG TABLET PO PRN (17:44)
[2024-08-27] MEDS: diazePAM 5 MG TABLET PO SCH (06:35)
[2024-08-27] MEDS: methaDONE HCL 10 MG TABLET (FOR DETOX USE ONLY) PO ONE (10:28)
[2024-08-27] MEDS: BUPRENORPHINE/NALOXONE 2 MG/0.5 MG FILM PACKET SL SCH (10:29)
[2024-08-27] MEDS: BISMUTH SUBSALICYLATE 524 MG/30 ML PO PRN (14:37)
[2024-08-27] MEDS: hydrOXYzine PAMOATE 25 MG CAPSULE (FP) PO PRN (17:24)
[2024-08-28] MEDS: diazePAM 5 MG TABLET PO SCH (06:04)
[2024-08-28] MEDS: BUPRENORPHINE/NALOXONE 4 MG/1 MG FILM PACKET SL SCH (09:55)
[2024-08-28] MEDS: MAGNESIUM HYDROX 2400MG/30ML ORAL SUSPENSION 30 ML CUP PO PRN (20:07)
[2024-08-28] MEDS: MAG HYDROX/AL HYDROX/SIMETH 30 ML UNIT-DOSE CUP PO PRN (22:31)
[2024-08-29] MEDS: diazePAM 5 MG TABLET PO ONE (05:37)
[2024-08-29] MEDS: BUPRENORPHINE/NALOXONE 8 MG/2 MG FILM PACKET SL SCH (09:38)
[2024-08-29] MEDS: methaDONE HCL 10 MG TABLET (FOR DETOX USE ONLY) PO ONE (09:40)
[2024-08-29] MEDS: NICOTINE POLACRILEX 2 MG LOZENGE BC PRN (09:43)
[2024-08-30 06:28] VITALS: TEMP 97.3
[2024-08-30] MEDS: BUPRENORPHINE/NALOXONE 8 MG/2 MG FILM PACKET SL SCH (09:06)
[2024-08-30 09:16] VITALS: BP 150/90; PULSE 95; RESP 18
== END 2024-08-30 09:14 | disposition home or self-care (01) | DRG 773 ==
LOC: YASAS 10:13 → Y6N 12:43
PROVIDERS: ADMIT Allergy & Immunology; ATTEND Surgery
PROC: HZ2ZZZZ Detoxification Services for Substance Abuse Treatment (ICD-10-PCS; principal; 2024-08-25)
DX: F11.23 Opioid dependence with withdrawal (principal); F10.230 Alcohol dependence with withdrawal, uncomplicated; F14.10 Cocaine abuse, uncomplicated; F17.210 Nicotine dependence, cigarettes, uncomplicated; F19.282 Other psychoactive substance dependence with psychoactive substance-induced sleep disorder; F19.280 Other psychoactive substance dependence with psychoactive substance-induced anxiety disorder; F41.8 Other specified anxiety disorders; F33.1 Major depressive disorder, recurrent, moderate; I11.0 Hypertensive heart disease with heart failure; I50.9 Heart failure, unspecified; E78.00 Pure hypercholesterolemia, unspecified; Z59.00 Homelessness unspecified
CPT/HCPCS: 80305; 93005; 93010

== ENCOUNTER 2025-02-26 18:39 | Inpatient (IN) | payer OTHER ==
[2025-02-26 19:28] VITALS: BMI 27.9
[2025-02-26] MEDS ORDERED: chlordiazePOXIDE HCL 25 MG CAPSULE PO PRN (19:52)
[2025-02-26] MEDS ORDERED: IBUPROFEN 400 MG TABLET (FP) PO PRN (19:54)
[2025-02-26] MEDS ORDERED: MAG HYDROX/AL HYDROX/SIMETH 30 ML UNIT-DOSE CUP PO PRN (19:54)
[2025-02-26] MEDS ORDERED: DICYCLOMINE HCL 10 MG CAPSULE PO PRN (19:54)
[2025-02-26] MEDS ORDERED: guaiFENesin 600 MG TABLET.ER (FP) PO PRN (19:54)
[2025-02-26] MEDS ORDERED: BENZONATATE 200 MG CAPSULE PO PRN (19:54)
[2025-02-26] MEDS ORDERED: BENZOCAINE/MENTHOL (CHLORASEPTIC ) LOZENGE MM PRN (19:54)
[2025-02-26] MEDS ORDERED: NALOXONE (NARCAN) HCL 4 MG/0.1 ML SPRAY NS PRN (19:54)
[2025-02-26] MEDS ORDERED: ACETAMINOPHEN 325 MG TABLET (FP) PO PRN (19:54)
[2025-02-26] MEDS ORDERED: POLYETHYLENE GLYCOL (HEALTHYLAX) 3350 17 GM PACKET PO PRN (19:54)
[2025-02-26] MEDS ORDERED: NICOTINE POLACRILEX 2 MG LOZENGE BC PRN (19:54)
[2025-02-26] MEDS ORDERED: ONDANSETRON *ODT* 4 MG TABLET SL PRN (19:54)
[2025-02-26] MEDS ORDERED: MAGNESIUM HYDROX 2400MG/30ML ORAL SUSPENSION 30 ML CUP PO PRN (19:54)
[2025-02-26] MEDS ORDERED: NICOTINE POLACRILEX 2 MG GUM BUC PRN (19:54)
[2025-02-26] MEDS ORDERED: LOPERAMIDE HCL 2 MG CAPSULE PO PRN (19:54)
[2025-02-26] MEDS ORDERED: chlordiazePOXIDE HCL 25 MG CAPSULE ONE (22:14)
[2025-02-26] MEDS: chlordiazePOXIDE HCL 25 MG CAPSULE PO ONE (22:17)
[2025-02-26] MEDS: METHOCARBAMOL 500 MG TABLET PO PRN (22:57)
[2025-02-26] MEDS: THIAMINE 100 MG TABLET PO SCH (22:57)
[2025-02-26] MEDS: IBUPROFEN 600 MG TABLET (FP) PO PRN (22:57)
[2025-02-26] MEDS: MELATONIN 5 MG TABLETS PO SCH (22:57)
[2025-02-26] MEDS: LOSARTAN POTASSIUM 50 MG TABLET PO ONE ×2 (23:22→23:56)
[2025-02-26] MEDS: chlordiazePOXIDE HCL 25 MG CAPSULE PO SCH (23:48)
[2025-02-27] MEDS: PRENATAL VITAMINS W/ FOLIC ACID TABLET (FP) PO SCH (10:06)
[2025-02-27] MEDS: LOSARTAN POTASSIUM 50 MG TABLET PO SCH (10:06)
[2025-02-27 11:15] LABS: HEMATOCRIT 38.8 % (40.1-51.0); HEMOGLOBIN 12.4 g/dL (13.7-17.5); MEAN CELL VOLUME 95.3 fl (79.0-92.2); MEAN PLT VOLUME 9.5 fl (9.4-12.4); PLATELET COUNT 290 x10^3/uL (163-337); RDW 14.5 % (12.2-16.1)
[2025-02-27 11:23] LABS: POTASSIUM 4.6 mmol/L (3.5-5.1)
[2025-02-27 12:03] LABS: BLOOD UREA NITROGEN 14.1 mg/dL (7-18); CALCIUM 9.4 mg/dL (8.5-10.1)
[2025-02-27 12:04] LABS: ALBUMIN 3.7 g/dl (3.4-5.0)
[2025-02-27 12:06] LABS: CREATININE 1.1 mg/dL (0.55-1.3)
[2025-02-27 12:08] LABS: BILIRUBIN,TOTAL 0.5 mg/dL (0.2-1); TOT PROT 6.4 g/dl (6.4-8.2)
[2025-02-27] MEDS: predniSONE 20 MG TABLET (UD) PO SCH (13:30)
[2025-02-27] MEDS: MINERAL OIL/PET HY-PHL TOPICAL OINTMENT 454 GM JAR TP SCH (13:30)
[2025-02-27] MEDS: amLODIPine BESYLATE 10 MG TABLET (FP) PO SCH (13:35)
[2025-02-27] MEDS: GABAPENTIN 300 MG CAPSULE PO SCH (15:20)
[2025-02-27] MEDS: ATORVASTATIN CA 40 MG TABLET (FP) PO SCH (22:21)
[2025-02-27] MEDS: MIRTAZAPINE 15 MG TABLET (FP) PO SCH (22:22)
[2025-02-28] MEDS: chlordiazePOXIDE HCL 25 MG CAPSULE PO SCH (06:30)
[2025-03-01] MEDS ORDERED: chlordiazePOXIDE HCL 10 MG CAPSULE PO PRN
[2025-03-01] MEDS: chlordiazePOXIDE HCL 10 MG CAPSULE PO SCH (05:55)
[2025-03-01] MEDS: BISMUTH SUBSALICYLATE 524 MG/30 ML PO PRN (17:46)
[2025-03-02] MEDS: chlordiazePOXIDE HCL 10 MG CAPSULE PO SCH (06:08)
[2025-03-02 10:52] VITALS: BP 148/117; PULSE 86; RESP 16; TEMP 98.1
[2025-03-03] MEDS ORDERED: chlordiazePOXIDE HCL 10 MG CAPSULE PO ONE (05:00)
== END 2025-03-02 11:13 | disposition home or self-care (01) | DRG 775 ==
LOC: YASAS 18:39 → Y3N 21:43
PROVIDERS: ADMIT Allergy & Immunology; ATTEND Allergy & Immunology
PROC: HZ2ZZZZ Detoxification Services for Substance Abuse Treatment (ICD-10-PCS; principal; 2025-02-26)
DX: F10.230 Alcohol dependence with withdrawal, uncomplicated (principal); F13.230 Sedative, hypnotic or anxiolytic dependence with withdrawal, uncomplicated; F17.210 Nicotine dependence, cigarettes, uncomplicated; F33.2 Major depressive disorder, recurrent severe without psychotic features; F19.282 Other psychoactive substance dependence with psychoactive substance-induced sleep disorder; E78.5 Hyperlipidemia, unspecified; I11.0 Hypertensive heart disease with heart failure; I50.9 Heart failure, unspecified; K21.9 Gastro-esophageal reflux disease without esophagitis; M15.9 Polyosteoarthritis, unspecified; Z87.19 Personal history of other diseases of the digestive system; I25.2 Old myocardial infarction
CPT/HCPCS: 36415; 80053; 80305; 80307; 85027; 86780; 93005; 93010

== ENCOUNTER 2025-04-09 00:35 | Inpatient (IN) | payer OTHER ==
[2025-04-09 01:10] VITALS: BMI 24.3
[2025-04-09] MEDS ORDERED: NALOXONE (NARCAN) HCL 4 MG/0.1 ML SPRAY NS PRN (02:14)
[2025-04-09] MEDS ORDERED: POLYETHYLENE GLYCOL (HEALTHYLAX) 3350 17 GM PACKET PO PRN (02:14)
[2025-04-09] MEDS ORDERED: BENZOCAINE/MENTHOL (CHLORASEPTIC ) LOZENGE MM PRN (02:14)
[2025-04-09] MEDS ORDERED: IBUPROFEN 400 MG TABLET (FP) PO PRN (02:14)
[2025-04-09] MEDS ORDERED: BISMUTH SUBSALICYLATE 524 MG/30 ML PO PRN (02:14)
[2025-04-09] MEDS ORDERED: DICYCLOMINE HCL 10 MG CAPSULE PO PRN (02:14)
[2025-04-09] MEDS ORDERED: NICOTINE POLACRILEX 2 MG GUM BUC PRN (02:14)
[2025-04-09] MEDS ORDERED: BENZONATATE 200 MG CAPSULE PO PRN (02:14)
[2025-04-09] MEDS ORDERED: guaiFENesin 600 MG TABLET.ER (FP) PO PRN (02:14)
[2025-04-09] MEDS ORDERED: hydrOXYzine PAMOATE 25 MG CAPSULE (FP) PO PRN (02:14)
[2025-04-09] MEDS ORDERED: MAG HYDROX/AL HYDROX/SIMETH 30 ML UNIT-DOSE CUP PO PRN (02:14)
[2025-04-09] MEDS ORDERED: MAGNESIUM HYDROX 2400MG/30ML ORAL SUSPENSION 30 ML CUP PO PRN (02:14)
[2025-04-09] MEDS: IBUPROFEN 600 MG TABLET (FP) PO PRN (09:05)
[2025-04-09] MEDS: levETIRAcetam 500 MG TABLET (FP) PO SCH (10:22)
[2025-04-09] MEDS: diazePAM 5 MG TABLET PO SCH (10:22)
[2025-04-09] MEDS: PRENATAL VITAMINS W/ FOLIC ACID TABLET (FP) PO SCH (10:23)
[2025-04-09] MEDS: NICOTINE 14 MG/24 HOURS TOPICAL PATCH TD SCH (10:23)
[2025-04-09] MEDS: METHYL SALICYLATE/MENTHOL 30 GM TUBE TP SCH (11:44)
[2025-04-09] MEDS: diphenhydrAMINE HCL 25 MG CAPSULE (FP) PO ONE (11:44)
[2025-04-09 14:23] LABS: POTASSIUM 4.8 mmol/L (3.5-5.1)
[2025-04-09 14:26] LABS: CALCIUM 9.3 mg/dL (8.5-10.1)
[2025-04-09 14:27] LABS: ALBUMIN 3.8 g/dl (3.4-5.0); BLOOD UREA NITROGEN 19.1 mg/dL (7-18); HEMATOCRIT 36.8 % (40.1-51.0); HEMOGLOBIN 11.8 g/dL (13.7-17.5); MCHC 32.1 g/dl (32.3-36.5); MEAN CELL VOLUME 93.9 fl (79.0-92.2); MEAN PLT VOLUME 9.4 fl (9.4-12.4); PLATELET COUNT 365 x10^3/uL (163-337); RDW 15.2 % (12.2-16.1)
[2025-04-09 14:29] LABS: CREATININE 1.1 mg/dL (0.55-1.3)
[2025-04-09 14:31] LABS: BILIRUBIN,TOTAL 1.1 mg/dL (0.2-1); TOT PROT 6.9 g/dl (6.4-8.2)
[2025-04-09] MEDS: GABAPENTIN 300 MG CAPSULE PO SCH (14:40)
[2025-04-09] MEDS: diazePAM 5 MG TABLET PO PRN (14:41)
[2025-04-09] MEDS: ACETAMINOPHEN 325 MG TABLET (FP) PO PRN (14:41)
[2025-04-09] MEDS ORDERED: amLODIPine BESYLATE 5 MG TABLET (FP) PO SCH (18:15)
[2025-04-09] MEDS: amLODIPine BESYLATE 10 MG TABLET (FP) PO SCH (18:40)
[2025-04-09] MEDS: KETOROLAC TROMETHAMINE 10 MG TABLET PO ONE (21:00)
[2025-04-09] MEDS: KETOROLAC TROMETHAMINE 30 MG/1 ML VIAL IM ONE (21:08)
[2025-04-09] MEDS: MIRTAZAPINE 15 MG TABLET (FP) PO SCH (22:47)
[2025-04-09] MEDS: THIAMINE 100 MG TABLET PO SCH (22:48)
[2025-04-09] MEDS: MELATONIN 5 MG TABLETS PO SCH (22:57)
[2025-04-10 10:02] LABS: POTASSIUM 4.8 mmol/L (3.5-5.1)
[2025-04-10 10:03] LABS: BLOOD UREA NITROGEN 15.6 mg/dL (7-18)
[2025-04-10 10:06] LABS: CREATININE 0.9 mg/dL (0.55-1.3)
[2025-04-11] MEDS: diazePAM 5 MG TABLET PO SCH (06:02)
[2025-04-11] MEDS: LOSARTAN POTASSIUM 50 MG TABLET PO SCH (09:47)
[2025-04-12] MEDS: diazePAM 5 MG TABLET PO SCH (06:14)
[2025-04-12] MEDS ORDERED: ACETAMINOPHEN 325 MG TABLET (FP) PO PRN (10:25)
[2025-04-12] MEDS: LOSARTAN POTASSIUM 50 MG TABLET PO ONE (14:04)
[2025-04-12] MEDS: METHOCARBAMOL 500 MG TABLET PO PRN (17:28)
[2025-04-12] MEDS: ONDANSETRON *ODT* 4 MG TABLET SL PRN (22:30)
[2025-04-12] MEDS: ATORVASTATIN CA 80 MG TABLET (FP) PO SCH (22:31)
[2025-04-12] MEDS: LOPERAMIDE HCL 2 MG CAPSULE PO PRN (22:34)
[2025-04-13 06:13] VITALS: RESP 16
[2025-04-13] MEDS: diazePAM 5 MG TABLET PO ONE (06:56)
[2025-04-13 08:50] VITALS: BP 119/72; PULSE 86; TEMP 97.6
[2025-04-13] MEDS: LOSARTAN POTASSIUM 50 MG TABLET PO SCH (09:36)
== END 2025-04-13 10:43 | disposition home or self-care (01) | DRG 774 ==
LOC: YASAS 00:35 → Y6N 02:41
PROVIDERS: ADMIT Allergy & Immunology; ATTEND Allergy & Immunology
PROC: HZ2ZZZZ Detoxification Services for Substance Abuse Treatment (ICD-10-PCS; principal; 2025-04-09)
DX: F10.230 Alcohol dependence with withdrawal, uncomplicated (principal); F13.230 Sedative, hypnotic or anxiolytic dependence with withdrawal, uncomplicated; F14.20 Cocaine dependence, uncomplicated; F12.20 Cannabis dependence, uncomplicated; F17.210 Nicotine dependence, cigarettes, uncomplicated; F31.9 Bipolar disorder, unspecified; F19.282 Other psychoactive substance dependence with psychoactive substance-induced sleep disorder; F19.280 Other psychoactive substance dependence with psychoactive substance-induced anxiety disorder; F41.8 Other specified anxiety disorders; E78.5 Hyperlipidemia, unspecified; I11.0 Hypertensive heart disease with heart failure; I50.9 Heart failure, unspecified; I25.2 Old myocardial infarction; M19.90 Unspecified osteoarthritis, unspecified site; Z87.19 Personal history of other diseases of the digestive system; Z91.81 History of falling
CPT/HCPCS: 36415; 80048; 80053; 80305; 80307; 85027; 86780; 93005; 93010; Q0162

== ENCOUNTER 2025-07-16 01:08 | Inpatient (IN) | payer OTHER ==
[2025-07-16 01:34] VITALS: BMI 16.7
[2025-07-16] MEDS ORDERED: NICOTINE POLACRILEX 4 MG GUM BUC PRN (02:34)
[2025-07-16] MEDS ORDERED: MAG HYDROX/AL HYDROX/SIMETH 30 ML UNIT-DOSE CUP PO PRN (02:34)
[2025-07-16] MEDS ORDERED: NALOXONE (NARCAN) HCL 4 MG/0.1 ML SPRAY NS PRN (02:34)
[2025-07-16] MEDS ORDERED: guaiFENesin 600 MG TABLET.ER (FP) PO PRN (02:34)
[2025-07-16] MEDS ORDERED: ONDANSETRON *ODT* 4 MG TABLET SL PRN (02:34)
[2025-07-16] MEDS ORDERED: DICYCLOMINE HCL 10 MG CAPSULE PO PRN (02:34)
[2025-07-16] MEDS ORDERED: LOPERAMIDE HCL 2 MG CAPSULE PO PRN (02:34)
[2025-07-16] MEDS ORDERED: BENZONATATE 200 MG CAPSULE PO PRN (02:34)
[2025-07-16] MEDS ORDERED: BISMUTH SUBSALICYLATE 524 MG/30 ML PO PRN (02:34)
[2025-07-16] MEDS ORDERED: POLYETHYLENE GLYCOL (HEALTHYLAX) 3350 17 GM PACKET PO PRN (02:34)
[2025-07-16] MEDS ORDERED: hydrOXYzine PAMOATE 25 MG CAPSULE (FP) PO PRN (02:34)
[2025-07-16] MEDS ORDERED: ACETAMINOPHEN 325 MG TABLET (FP) PO PRN (02:34)
[2025-07-16] MEDS ORDERED: MAGNESIUM HYDROX 2400MG/30ML ORAL SUSPENSION 30 ML CUP PO PRN (02:34)
[2025-07-16] MEDS: LOSARTAN POTASSIUM 50 MG TABLET PO SCH (08:05)
[2025-07-16] MEDS: PRENATAL VITAMINS W/ FOLIC ACID TABLET (FP) PO SCH (10:19)
[2025-07-16] MEDS: NICOTINE 21 MG/24 HOURS TOPICAL PATCH TD SCH (10:21)
[2025-07-16] MEDS: amLODIPine BESYLATE 10 MG TABLET (FP) PO SCH (13:56)
[2025-07-16] MEDS: ATORVASTATIN CA 80 MG TABLET (FP) PO SCH (22:47)
[2025-07-16] MEDS: MELATONIN 5 MG TABLETS PO SCH (22:47)
[2025-07-16] MEDS: THIAMINE 100 MG TABLET PO SCH (22:47)
[2025-07-17] MEDS: IBUPROFEN 400 MG TABLET (FP) PO PRN (10:28)
[2025-07-17] MEDS: CLOTRIMAZOLE 1%TOPICAL SOLUTION 30 ML BOTTLE TP SCH (15:06)
[2025-07-17] MEDS: METHOCARBAMOL 500 MG TABLET PO PRN (17:32)
[2025-07-17] MEDS: IBUPROFEN 600 MG TABLET (FP) PO PRN (17:32)
[2025-07-17] MEDS: BENZOCAINE/MENTHOL (CHLORASEPTIC ) LOZENGE MM PRN (18:46)
[2025-07-18 06:14] VITALS: TEMP 97.5
[2025-07-18 09:54] VITALS: BP 160/94; PULSE 65; RESP 17
== END 2025-07-18 10:30 | disposition left against medical advice (07) | DRG 774 ==
LOC: YASAS 01:08 → Y3N 02:48
PROVIDERS: ADMIT Allergy & Immunology; ATTEND Allergy & Immunology
PROC: HZ2ZZZZ Detoxification Services for Substance Abuse Treatment (ICD-10-PCS; principal; 2025-07-16)
DX: F10.230 Alcohol dependence with withdrawal, uncomplicated (principal); F14.20 Cocaine dependence, uncomplicated; F13.20 Sedative, hypnotic or anxiolytic dependence, uncomplicated; F12.20 Cannabis dependence, uncomplicated; F17.210 Nicotine dependence, cigarettes, uncomplicated; F31.9 Bipolar disorder, unspecified; F41.8 Other specified anxiety disorders; E78.5 Hyperlipidemia, unspecified; I11.0 Hypertensive heart disease with heart failure; I50.9 Heart failure, unspecified; M10.9 Gout, unspecified; F91.8 Other conduct disorders; Z91.199 Patient's noncompliance with other medical treatment and regimen due to unspecified reason
CPT/HCPCS: 93005; 93010